=== PATIENT | male | born 1955 | race Caucasian/White ===

== ENCOUNTER 2022-11-27 14:05 | Observation (INO) | payer BC ==
--- OUTSIDE RECORDS SUMMARY | 2022-11-27 14:09 | XMS REPORT | Continuity of Care Document ---
:[address] [facility] [place], [place] t Address [address] [facility] [address] [place] [id number] Care Team Providers Name Role Phone Ricardo De La Cruz Attending Clinician Unavailable Provider, [facility] Attending Clinician Unavailable Yahaira Winston Attending Clinician YAHAIRA MÁRQUEZ Attending Clinician Unavailable Doctor Unassigned, [place] Attending Clinician Unavailable Payers Payer Name Policy Type Policy Number Effective Date Expiration Date S rennyce [employer] 6 [id number] Common Spir it Blue Shield [address] [id number] 2019 - OUT OF STATE 00 00:00:00 Problems Condition Condition Condition Status Onset Resolution Last Treating Co mments Source Name Details Category Date Date Treatment Clinician Date [id number] Family Problem Common history of Spirit prostate - [facility] cancer in [facility] [id number] PSA Problem Common elevation [facility] [id number] BPH loc w Problem Com mon urin Spirit obs/LUTS - [facility] [id number] Chronic Problem Common prostatiti Spirit [facility] [id number] Prostate Problem [place] [id number] nodule [facility] [id number] Thrombocyt Problem Co mmon openia [facility] No known No known Disease Unive rs active active ity of problems problems [facility] Allergies, Adverse Reactions, Alerts Allergy Allergy Status Severity Reaction(s) Onset Inactive Treating Comm ents Source Name Type Date Date Clinician PENICILL Drug Active Unknown-Cmnt 2019-09 Un fidel INS Class - ity of 00:00: [place] 00 [facility] Penicill Propensi Active Unknown - 2019-09 Uni vers ins ty to See comments 10-08 ity of adverse 00:00: [place] reaction 00 Medical s Branch penicill penicill Active Unknown Commo n in V in V [facility] NO KNOWN Drug Active Univers ALLERGIE Class ity of S [facility] sulfacet sulfacet Active anaphylaxis C ommon amide amide [facility] sulfamet sulfamet Active anaphylaxis C ommon hoxazole hoxazole Spirit / / - [facility] trimetho trimetho [facility] Social History Social Habit Start Date Stop Date Quantity Comments Source History of Tobacco Common Spirit - [facility] Use [facility] Sex Assigned At Common Sp krista - [facility] Exposure to Not sure [facility] SARS-CoV-2 (event) [facility] Tobacco use and 2020-08-08 2020-08-08 Never used [facility] exposure 00:00:00 00:00:00 [facility] Smoking Status Start Date Stop Date Source Unknown if ever smoked [facility] Never Smoker [facility] [place] Medications Ordered Filled Start Stop Current Ordering Indication Dosage Frequency Signature Comments Components Source Medication Medication Date Date Medication? Clinician (SIG) Name Name methylPREDN methylPREDN 2021-09 methylPRED ISolone 4 ISolone 4 11-02 NISolone 4 MG MG 00:00: 00:00 MG 00 :00 Flomax 0.4 Flomax 0.4 2021-09- No 1{capsu QD Flomax 0.4 MG MG 10-11 le} MG 00:00: 00:00 00 :00 Flomax 0.4 Flomax 0.4 2021-09- No 1{capsu QD Flomax 0.4 MG MG 10-11 le} MG 00:00: 00:00 00 :00 Flomax 0.4 Flomax 0.4 2021-09- No 1{capsu QD Flomax 0.4 MG MG 10-11 le} MG 00:00: 00:00 00 :00 Sulfamethox Sulfamethox 2021-09- No 1{table BID Sulfametho azole-Trime azole-Trime 10-11 12-22 t} xazole-Tri thoprim thoprim 00:00: 00:00 methoprim 800-160 MG 800-160 MG 00 :00 800-160 MG bromphenira 2019-09 Yes [id number] 5mL Take 5 mL Univers mine-pseudo 1-29 by mouth 4 it y of ephedrine-D 00:00: (four) Steven Jones (BROMFED 00 times Medical DM) 30-10 daily as Bran ch mg/5 mL needed for syrup Congestion /Allergies . zolpidem 10 2019-09 Yes TK 1 T PO U nivers mg tablet 10-01 HS ity of 00:00: [address] Branch Zolpidem Zolpidem No Zolpidem Tartrate Tartrate Tartrate Levothyroxi Levothyroxi No Levothyrox ne Sodium ne Sodium ine Sodium Zolpidem Zolpidem No Zolpidem Tartrate Tartrate Tartrate Levothyroxi Levothyroxi No Levothyrox ne Sodium ne Sodium ine Sodium Levothyroxi Levothyroxi No Levothyrox ne Sodium ne Sodium ine Sodium Zolpidem Zolpidem No Zolpidem Tartrate Tartrate Tartrate Vital Signs Vital Name Observation Time Observation Value Comments Source height 2022-09-28 09:30:00 74 [in_i] [facility] weight 2022-09-28 09:30:00 224 [lb_av] [facility] temperature 2022-09-28 09:30:00 98.2 [degF] [facility] bmi 2022-09-28 09:30:00 28.76 kg/m2 [facility] oximetry 2022-09-28 09:30:00 96 % [facility] respiratory rate 2022-09-28 09:30:00 16 /min Comm on [facility] blood pressure 2022-09-28 09:30:00 131 mm[Hg] Common [facility] blood pressure 2022-09-28 09:30:00 76 mm[Hg] Common [facility] - diastolic [facility] height 2022-08-10 08:30:00 74 [in_i] [facility] weight 2022-08-10 08:30:00 218 [lb_av] [facility] temperature 2022-08-10 08:30:00 98.4 [degF] Common [facility] bmi 2022-08-10 08:30:00 27.99 kg/m2 [facility] oximetry 2022-08-10 08:30:00 97 % [facility] respiratory rate 2022-08-10 08:30:00 18 /min Comm on [facility] blood pressure 2022-08-10 08:30:00 129 mm[Hg] Common [facility] - systolic [facility] blood pressure 2022-08-10 08:30:00 77 mm[Hg] Common [facility] - diastolic [facility] Systolic blood 2020-08-08 22:59:00 151 mm[Hg] Univer sity of pressure [facility] Diastolic blood 2020-08-08 22:59:00 85 mm[Hg] Unive rsity of pressure [facility] Heart rate 2020-08-08 22:58:00 112 /min [facility] Body temperature 2020-08-08 22:58:00 36.83 [facility] rate 2020-08-08 22:58:00 18 /min [facility] Body height 2020-08-08 22:58:00 188 cm Universi ty [facility] Body weight 2020-08-08 22:58:00 97[facility]523 [facility] 2020-08-08 22:58:00 27.60 kg/m2 [facility] Oxygen saturation in 2020-08-08 22:58:00 98 /min [facility] blood by [facility] Pulse oximetry Branch Procedures This patient has no known procedures. Encounters Start End Encounter Admission Attending Care Care Encounter Source Date/Time Date/Time Type Type Clinicians Facility Department ID 2022-08-24 Outpatient De La Cruz, Ricardo STHAYLEY STLMLC [id number] Common 09:41:04 [id number] [facility] 2022-08-10 Outpatient Ricardo De La Cruz STHAYLEY STLMLC [id number] - Common 08:15:06 [id number] [facility] 2022-09-28 2022-09-28 OFFICE STLMLC STLMLC [id number] Co mmon 00:00:00 00:00:00 VISIT EST Spir it PT LEVEL 3 - [facility] 2022-09-01 2022-09-01 (TEL) STLMLC STLMLC [id number] Co mmon 00:00:00 00:00:00 [facility] 2022-08-10 2022-08-10 OFFICE STLMLC STLMLC [id number] Co mmon 00:00:00 00:00:00 VISIT NEW Spir it PT LEVEL 4 - [facility] 2020-11-14 2020-11-14 Outpatient [facility] [id number] Univers 10:40:00 10:40:00 ity [facility] 2020-10-17 2020-10-17 Outpatient [facility] [id number] Univers 10:50:00 10:50:[facility] 2020-08-08 2020-08-08 Urgent Provider, [facility] [id number] Univers 16:49:50 17:48:57 [facility] [id number] ity of [place] [id number] Shawn as Professio [phone] [place] [address] Branch [address] 2020-08-08 2020-08-08 [facility] [id number] Univers 17:00:00 17:00:00 [facility] 2020-08-08 2020-08-08 Letter Doctor BATOOL [id number] Univers 00:00:00 00:00:00 (Out) Unassigned, BARRY [id number] ity of [place] [facility] [id number] Shawn as [phone] Medi solo 044 Branch Results This patient has no known results.
[2022-11-27] MEDS ORDERED: ASPIRIN 81 MG CHEWABLE TABLET ONE (14:52)
[2022-11-27] MEDS ORDERED: ENOXAPARIN 100 MG/ML SYR SQ ONE (14:52)
[2022-11-27 15:04] LABS: Protime INR 1.05
[2022-11-27 15:21] LABS: Albumin 3.3 g/dL (3.4-5.0); Bilirubin Direct 0.4 mg/dL (0-0.2); Magnesium 2.2 mg/dL (1.6-2.4); Potassium 4.1 mEq/L (3.5-5.1); Protein, Total 7.4 g/dL (6.4-8.2); Troponin High Sensitivity 10.8 pg/mL (<58.9)
[2022-11-27 15:36] LABS: SARS-COV-2 RT PCR NEGATIVE (NEGATIVE)
[2022-11-27 15:45] LABS: Absolute Lymphocytes (CBC) 0.9 K/uL (0.7-4.9); Hematocrit 40.8 % (39.6-49.0); Lymphocytes % 19.3 % (15.3-44.8); MCV 112.5 fL (80-100); MPV 7.7 fL (7.6-11.3); RBC Red Blood Cell Count 3.62 M/uL (4.33-5.43)
[2022-11-27 15:46] LABS: Platelet Estimate DECR; White Blood Cell Scan OK (OK)
[2022-11-27 15:47] LABS: Blood Morphology Comment NOTED (NOT SEEN); Macrocytosis 2+; Platelets, Giant PRESENT
--- NOTE | 2022-11-27 15:49 | RAD REPORT ---
EXAM DESCRIPTION: USExtrem Venous W Compress Bil11/27/2022 3:09 pm CLINICAL HISTORY: Leg pain COMPARISON: none FINDINGS: The common femoral, superficial femoral, greater saphenous, popliteal and posterior tibial veins bilaterally are compressible and demonstrate augmentation. Doppler demonstrates good flow. Grayscale, color and spectral analysis performed on all vessels IMPRESSION: No evidence of deep venous thrombosis involving either lower extremity.
--- NOTE | 2022-11-27 16:17 | ER ---
Nurse's Notes [facility] Name: Papito Christy Age: 67 yrs Sex: Male : 1955 Arrival Date: 11/27/2022 Time: 14:07 Bed 7 Private MD: Diagnosis: Chest pain, unspecified;Tachycardia, unspecified;Dyspnea;Edema, unspecified;Thrombocytopenia, unspecified;Unspecified cirrhosis of liver Presentation: 11/27 14:18 Chief complaint: Patient states: "I went to see the residential monitor because of some chest aa5 pains I get when I walk too far and he said to come straight here". Coronavirus screen: At this time, the client does not indicate any symptoms associated with coronavirus-19. Ebola Screen: Patient denies travel to an Ebola-affected area in the 21 days before illness onset. Initial Sepsis Screen: Does the patient meet any 2 criteria? HR > 90 bpm. Does the patient have a suspected source of infection? No. Patient's initial sepsis screen is negative. Risk Assessment: Do you want to hurt yourself or someone else? Patient reports no desire to harm self or others. Onset of symptoms was 2022. 14:18 Acuity: EUNICE 2 aa5 14:18 Method Of Arrival: Ambulatory aa5 Historical: - Allergies: 14:18 PENICILLINS; aa5 14:18 Z-pack; aa5 - Home Meds: 14:18 None [Active]; aa5 - PMHx: 14:18 None; aa5 - Immunization history:: Adult Immunizations unknown. - Social history:: Smoking status: Patient denies any tobacco usage or history of. - Family history:: not pertinent. Screenin:39 [facility] ED Fall Risk Assessment (Adult) History of falling in the last 3 months, mb9 including since admission No falls in past 3 months (0 pts) Confusion or Disorientation No (0 pts) Intoxicated or Sedated No (0 pts) Impaired Gait No (0 pts) Mobility Assist Device Used No (0 pt) Altered Elimination No (0 pt) Score/Fall Risk Level 0 - 2 = Low Risk Oriented to surroundings, Maintained a safe environment, Educated pt \\T\\ family on fall prevention, incl call for assistance when getting out of bed. Abuse screen: Denies threats or abuse. Nutritional screening: No deficits noted. Tuberculosis screening: No symptoms or risk factors identified. Assessment: 14:41 Reassessment: pt taken to ultrasound. mb9 15:38 General: Appears in no apparent distress. comfortable, Behavior is calm, cooperative, mb9 appropriate for age. Pain: Complains of pain in chest Pain does not radiate. Pain currently is 0 out of 10 on a pain scale. Quality of pain is described as pressure, Pain began 2-3 months ago Is episodic, Aggravated by exercise, increased activity. Neuro: Level of Consciousness is awake, alert, obeys commands, Oriented to person, place, time, situation, Appropriate for age. Cardiovascular: Reports shortness of breath, when exercising Heart tones S1 S2 present Rhythm is regular. Respiratory: Airway is patent Respiratory effort is even, unlabored, Respiratory pattern is regular, symmetrical, Breath sounds are clear bilaterally. GI: Abdomen is round non-distended, Bowel sounds present X 4 quads. Abd is soft and non tender X 4 quads. Derm: Skin is pink, warm \\T\\ dry. Musculoskeletal: Range of motion: intact in all extremities. 16:28 Reassessment: pt taken to CT via wheelchair. mb9 16:52 Reassessment: No changes from previously documented assessment. Patient and/or family mb9 updated on plan of care and expected duration. Pain level reassessed. Patient is alert, oriented x 3, equal unlabored respirations, skin warm/dry/pink. Vital Signs: 14:18 BP 128 / 78; Pulse 126; Resp 20 S; Temp 98(TE); Pulse Ox 98% on R/A; Weight 97.52 kg aa5 (R); Height 6 ft. 2 in. (R); 15:37 BP 133 / 72; Pulse 92; Resp 16; Pulse Ox 98% ; Pain 0/10; mb9 16:52 BP 140 / 67; Pulse 78; Resp 18; Pulse Ox 99% ; mb9 17:42 BP 130 / 73; Pulse 104; Resp 16; Pulse Ox 98% on R/A; mb9 14:18 Body Mass Index 27.60 (97.52 kg, 187.96 cm) aa5 15:37 Pain Scale: Adult mb9 ED Course: 14:07 Patient arrived in ED. rg4 14:18 Wilfred Barbosa MD is Attending Physician. kyara 14:18 Arm band placed on. aa5 14:19 Triage completed. aa5 14:27 EKG completed in triage. Results shown to MD. iw 14:40 Erum Wright, RN is Primary Nurse. mb9 14:46 Inserted saline lock: 20 gauge in left antecubital area, using aseptic technique. Blood zm collected. 14:47 TSH Sent. zm 14:47 COVID-19/FLU A+B Sent. zm 14:47 Lipase Sent. zm 14:47 Basic Metabolic Panel Sent. zm 14:47 CBC with Diff Sent. zm 14:47 LFT's Sent. zm 14:47 Magnesium Sent. zm 14:47 NT PRO-BNP Sent. zm 14:47 PT-INR Sent. zm 14:47 Troponin HS Sent. zm 14:55 Placed in gown. Bed in low position. Call light in reach. Side rails up X 1. Client mb9 placed on continuous cardiac and pulse oximetry monitoring. NIBP monitoring applied. monitoring manager on. 15:10 US Extremity Venous W Compression Luis Antonio In Process Unspecified. EDMS 15:39 No provider procedures requiring assistance completed. mb9 15:42 XRAY Chest (1 view) In Process Unspecified. EDMS 16:16 William West MD is Hospitalizing Provider. [facility] 16:40 CT Chest For PE Angio: ro pe In Process Unspecified. EDMS 19:19 Patient admitted, IV remains in place. mb9 Administered Medications: 15:13 Drug: Enoxaparin Sub-Q 1 mg/kg Route: Sub-Q; Site: right lower abdomen; mb9 16:47 Follow up: Response: No adverse reaction mb9 15:14 Drug: Aspirin PO Chewable Tablet 324 mg Route: PO; mb9 16:47 Follow up: Response: No adverse reaction mb9 17:49 Drug: Metoprolol PO 25 mg Route: PO; mb9 Medication: 15:39 VIS not applicable for this client. mb9 Outcome: 16:17 Decision to Hospitalize by Provider. [facility] 19:18 Admitted to [facility] via wheelchair, room 426, with chart, Report called to Keira isabel 19:18 Condition: stable 19:18 Instructed on the need for admit. 19:45 Patient left the ED. mb9 Signatures: Dispatcher [employer] EDMS Wilfred Barbosa MD MD cha Williams, Irene, RN RN Ivania Blackwell RN RN aa5 Adalgisa Chase4 Silvia Gutierrez Mary Beth, RN RN mb9 Corrections: (The following items were deleted from the chart) 14:20 14:18 Pulse 126bpm; Resp 20bpm; Spontaneous; Pulse Ox 98% RA; 97.52 kg Reported; Height aa5 6 ft. 2 in. Reported; BMI: 27.6; aa5 17:50 17:42 BP 130 / 73; Pulse 74bpm; Resp 16bpm; Pulse Ox 98% RA; mb9 mb9
--- NOTE | 2022-11-27 16:18 | EDPHYS ---
Physician Documentation [facility] Name: Papito Christy Age: 67 yrs Sex: Male : 1955 Arrival Date: 11/27/2022 Time: 14:07 Bed 7 Private MD: ED Physician Wilfred Barbosa HPI: 11/27 14:43 This 67 yrs old Male presents to ER via Ambulatory with complaints of kyara Palpitations. 14:43 The patient presents with a history of heart racing. Context: The symptoms occur at [facility] rest, with light activity. Onset: The symptoms/episode began/occurred 3 day(s) ago. Duration: The patient or guardian reports a single episode, that is still ongoing. Modifying factors: The symptoms are aggravated by light activity, strenuous activity, The symptoms are alleviated by remaining still, rest. Associated signs and symptoms: Pertinent positives: chest pain. Severity of symptoms: At their worst the symptoms were moderate in the emergency department the symptoms have improved Pain is currently a 0 / 10. The patient has not experienced similar symptoms in the past. Historical: - Allergies: 14:18 PENICILLINS; aa5 14:18 Z-pack; aa5 - Home Meds: 14:18 None [Active]; aa5 - PMHx: 14:18 None; aa5 - Immunization history:: Adult Immunizations unknown. - Social history:: Smoking status: Patient denies any tobacco usage or history of. - Family history:: not pertinent. ROS: 14:43 Constitutional: Negative for fever, chills, and weight loss, Eyes: Negative for injury, kyara pain, redness, and discharge, ENT: Negative for injury, pain, and discharge, Neck: Negative for injury, pain, and swelling, Abdomen/GI: Negative for abdominal pain, nausea, vomiting, diarrhea, and constipation, Back: Negative for injury and pain, : Negative for injury, bleeding, discharge, and swelling, MS/Extremity: Negative for injury and deformity, Skin: Negative for injury, rash, and discoloration, Neuro: Negative for headache, weakness, numbness, tingling, and seizure, Psych: Negative for depression, anxiety, suicide ideation, homicidal ideation, and hallucinations, Allergy/Immunology: Negative for hives, rash, and allergies, Endocrine: Negative for neck swelling, polydipsia, polyuria, polyphagia, and marked weight changes, Hematologic/Lymphatic: Negative for swollen nodes, abnormal bleeding, and unusual bruising. 14:43 Cardiovascular: Positive for chest pain, of the chest. 14:43 Respiratory: Positive for cough, with no reported sputum, dyspnea on exertion, shortness of breath, on exertion. Exam: 14:43 Constitutional: This is a well developed, well nourished patient who is awake, alert, kyara and in no acute distress. Head/Face: Normocephalic, atraumatic. Eyes: Pupils equal round and reactive to light, extra-ocular motions intact. Lids and lashes normal. Conjunctiva and sclera are non-icteric and not injected. Cornea within normal limits. Periorbital areas with no swelling, redness, or edema. ENT: Nares patent. No nasal discharge, no septal abnormalities noted. Tympanic membranes are normal and external auditory canals are clear. Oropharynx with no redness, swelling, or masses, exudates, or evidence of obstruction, uvula midline. Mucous membranes moist. Neck: Trachea midline, no thyromegaly or masses palpated, and no cervical lymphadenopathy. Supple, full range of motion without nuchal rigidity, or vertebral point tenderness. No Meningismus. Chest/axilla: Normal chest wall appearance and motion. Nontender with no deformity. No lesions are appreciated. Cardiovascular: Regular rate and rhythm with a normal S1 and S2. No gallops, murmurs, or rubs. Normal PMI, no JVD. No pulse deficits. Abdomen/GI: Soft, non-tender, with normal bowel sounds. No distension or tympany. No guarding or rebound. No evidence of tenderness throughout. Back: No spinal tenderness. No costovertebral tenderness. Full range of motion. Male : Normal genitalia with no discharge or lesions. Skin: Warm, dry with normal turgor. Normal color with no rashes, no lesions, and no evidence of cellulitis. Neuro: Awake and alert, GCS 15, oriented to person, place, time, and situation. Cranial nerves II-XII grossly intact. Motor strength 5/5 in all extremities. Sensory grossly intact. Cerebellar exam normal. Normal gait. Psych: Awake, alert, with orientation to person, place and time. Behavior, mood, and affect are within normal limits. 14:43 ECG was reviewed by the Attending Physician. 14:43 Respiratory: the patient does not display signs of respiratory distress, Respirations: normal, no acute changes, Breath sounds: bronchial sounds, that are mild, are scattered, decreased breath sounds, that are mild, are located in both bases, rhonchi, that are mild, stridor, is not appreciated. Vital Signs: 14:18 BP 128 / 78; Pulse 126; Resp 20 S; Temp 98(TE); Pulse Ox 98% on R/A; Weight 97.52 kg aa5 (R); Height 6 ft. 2 in. (R); 15:37 BP 133 / 72; Pulse 92; Resp 16; Pulse Ox 98% ; Pain 0/10; mb9 16:52 BP 140 / 67; Pulse 78; Resp 18; Pulse Ox 99% ; mb9 17:42 BP 130 / 73; Pulse 104; Resp 16; Pulse Ox 98% on R/A; mb9 14:18 Body Mass Index 27.60 (97.52 kg, 187.96 cm) aa5 15:37 Pain Scale: Adult mb9 MDM: 14:18 Patient medically screened. kyara 14:53 SALIMA Risk Score: 1 - Patient's age is greater or equal to 65, 1 - 3 or more CAD risk kyara factors, 1 - Recent [<24 hrs] Severe Angina. Differential diagnosis: arrythmia, dehydration. Data reviewed: vital signs, nurses notes, lab test result(s), EKG, radiologic studies, doppler, plain films. Consideration of Admission/Observation Patient was admitted/placed on observation. I considered the following discharge prescriptions or medication management in the emergency department Medications were administered in the Emergency Department. See MAR. Test considered but Not performed: MRI: mri chest. 11/27 14:19 Order name: Basic Metabolic Panel; Complete Time: 15:50 kyara 11/27 14:19 Order name: CBC with Diff; Complete Time: 15:50 kyara 11/27 14:19 Order name: LFT's; Complete Time: 15:50 kyara 11/27 14:19 Order name: Magnesium; Complete Time: 15:50 kyara 11/27 14:19 Order name: NT PRO-BNP; Complete Time: 15:50 kyara 11/27 14:19 Order name: PT-INR; Complete Time: 15:10 11/27 14:19 Order name: Troponin HS; Complete Time: 15:50 kyara 11/27 14:19 Order name: Lipase; Complete Time: 15:50 kyara 11/27 14:19 Order name: COVID-19/FLU A+B; Complete Time: 15:50 kyara 11/27 14:20 Order name: TSH; Complete Time: 15:50 kyara 11/27 15:24 Order name: T4 Free; Complete Time: 15:50 EDMS 11/27 15:47 Order name: CBC Smear Scan; Complete Time: 15:50 EDMS 11/27 18:10 Order name: CBC with Automated Diff EDMS 11/27 18:10 Order name: CBC with Automated Diff EDMS 11/27 18:10 Order name: Comprehensive Metabolic Panel EDMS 11/27 18:10 Order name: Comprehensive Metabolic Panel EDMS 11/27 18:10 Order name: Protime (+INR) EDMS 11/27 18:10 Order name: Protime (+INR) EDMS 11/27 18:10 Order name: PTT, Activated Partial Thromb EDMS 11/27 18:10 Order name: PTT, Activated Partial Thromb EDMS 11/27 18:10 Order name: Slides for Pathologist Review EDMS 11/27 18:10 Order name: Slides for Pathologist Review EDMS 11/27 18:10 Order name: Troponin High Sensitivity EDMS 11/27 18:10 Order name: Troponin High Sensitivity EDMS 11/27 18:10 Order name: Troponin High Sensitivity EDMS 11/27 18:11 Order name: Haptoglobin EDMS 11/27 18:11 Order name: Haptoglobin EDMS 11/27 18:11 Order name: Lactic Dehydrogenase EDMS 11/27 18:11 Order name: Lactic Dehydrogenase EDMS 11/27 14:19 Order name: XRAY Chest (1 view); Complete Time: 17:37 kyara 11/27 14:19 Order name: US Extremity Venous W Compression Luis Antonio; Complete Time: 16:09 kyara 11/27 14:19 Order name: CT Chest For PE Angio: ro pe; Complete Time: 17:37 kyara 11/27 14:19 Order name: EKG; Complete Time: 14:20 kyara 11/27 18:10 Order name: CONS Physician Consult EDMS 11/27 18:10 Order name: Heart Healthy EDMS 11/27 14:19 Order name: Cardiac monitoring; Complete Time: 14:42 kyara 11/27 14:19 Order name: EKG - Nurse/Tech; Complete Time: 14:28 [facility] 11/27 14:19 Order name: IV Saline Lock; Complete Time: 14:44 [facility] 11/27 14:19 Order name: Labs collected and sent; Complete Time: 14:44 [facility] 11/27 14:19 Order name: O2 Per Protocol; Complete Time: 14:42 [facility] 11/27 14:19 Order name: O2 Sat Monitoring; Complete Time: 14:42 [facility] 11/27 15:12 Order name: Labs - recollect needed: recollect lavender / electromyographic technician wants to verify eb results; Complete Time: 15:37 EC:43 Rate is 99 beats/min. Rhythm is regular. QRS [place] is Normal. NM interval is normal. QRS kyara interval is normal. QT interval is normal. T waves are Normal. No ST changes noted. Clinical impression: LVH. Interpreted by me. Reviewed by me. Administered Medications: 15:13 Drug: Enoxaparin Sub-Q 1 mg/kg Route: Sub-Q; Site: right lower abdomen; mb9 16:47 Follow up: Response: No adverse reaction mb9 15:14 Drug: Aspirin PO Chewable Tablet 324 mg Route: PO; mb9 16:47 Follow up: Response: No adverse reaction mb9 17:49 Drug: Metoprolol PO 25 mg Route: PO; mb9 Disposition Summary: 11/27/22 16:17 Hospitalization Ordered Hospitalization Status: Inpatient Admission kyara Provider: William West cha Location: Telemetry/MedSurg (Inpatient) kyara Condition: Fair kyara Problem: new kyara Symptoms: have worsened kyara Bed/Room Type: Standard kyara Room Assignment: 426(11/27/22 18:32) eb Diagnosis - Chest pain, unspecified kyara - Tachycardia, unspecified kyara - Dyspnea kyara - Edema, unspecified kyara - Thrombocytopenia, unspecified kyara - Unspecified cirrhosis of liver kyara Forms: - Medication Reconciliation Form kyara - SBAR form kyara Signatures: Dispatcher [employer] EDMS Wilfred Barbosa MD MD cha Calderon, Audri RN RN [id number] Coby Cervantes Mary Beth RN RN mb9 Corrections: (The following items were deleted from the chart) 16:50 16:26 SARS-COV-2 Antigen Rapid+I.LAB.BRZ ordered. EDMS EDMS 18:32 16:17 kyara eb
--- NOTE | 2022-11-27 17:01 | RAD REPORT ---
EXAM DESCRIPTION: CT - Chest For Pe Angio - 11/27/2022 4:38 pm CLINICAL HISTORY: Chest pain COMPARISON: None. TECHNIQUE: Dynamically enhanced axial 3 mm thick images of the chest were obtained during administra tion of 100 mL Isovue 370 IV contrast. Coronal and oblique reconstruction images were generated and r eviewed. Exam utilizes a protocol for optimal evaluation of pulmonary arterial tree. Maximum intensity projections 3D imaging was utilized All CT scans are performed using dose optimization technique as appropriate and may include automated exposure control or mA/KV adjustment according to patient size. FINDINGS: A pulmonary embolus is not seen. A thoracic aortic aneurysm is not noted. A pleural effusion is not seen. A pericardial effusion is not seen. A lung consolidation is not present. Cirrhotic liver IMPRESSION: Negative for a pulmonary embolism.
--- NOTE | 2022-11-27 17:02 | RAD REPORT ---
EXAM DESCRIPTION: Analisa Single View11/27/2022 3:40 pm CLINICAL HISTORY: Chest pain COMPARISON: none FINDINGS: The lungs appear clear of acute infiltrate. The heart is normal size IMPRESSION: No acute abnormalities displayed
[2022-11-27] MEDS ORDERED: METOPROLOL TAR 25 MG TAB ONE (17:49)
[2022-11-27] MEDS ORDERED: MORPHINE 2 MG/ML SYR IV PRN (18:02)
[2022-11-27] MEDS ORDERED: ONDANSETRON 4 MG/2 ML VIAL IV PRN (18:02)
[2022-11-27] MEDS ORDERED: ACETAMINOPHEN 500 MG TAB PO PRN (18:02)
[2022-11-27] MEDS ORDERED: NA CHLORIDE 0.9% 1,000 ML ONE (18:37)
[2022-11-27] MEDS: NA CHLORIDE 0.9% 1,000 ML IV SCH ×2 (18:38→21:49)
[2022-11-27 18:39] VITALS: BMI 27.4
[2022-11-27 22:44] VITALS: O2SAT 98
[2022-11-28 04:42] LABS: Absolute Lymphocytes (CBC) 1.1 K/uL (0.7-4.9); Lymphocytes % 27.8 % (15.3-44.8); MCV 112.3 fL (80-100); MPV 8.2 fL (7.6-11.3); RBC Red Blood Cell Count 3.65 M/uL (4.33-5.43)
[2022-11-28 04:45] LABS: Protime INR 1.08
[2022-11-28 05:06] LABS: Albumin 3.1 g/dL (3.4-5.0); Bilirubin Total 1.1 mg/dL (0.2-1.0); Potassium 4.1 mEq/L (3.5-5.1); Protein, Total 6.6 g/dL (6.4-8.2)
[2022-11-28 05:35] LABS: Blood Morphology Comment NOTED (NOT SEEN); Macrocytosis 1+; Platelet Estimate DECR
[2022-11-28] MEDS ORDERED: PNEUMOCOCCAL VACCINE 0.5 ML IMVAC ONE (09:00)
--- NOTE | 2022-11-28 13:01 | EKG ---
Test Date: 2022-11-27 Test Time: 14:25:22 Pediatric Allergist: MAR MEASUREMENT RESULTS: Intervals: Rate: 99 AR: 194 QRSD: 102 QT: 356 QTc: 456 [place]: P: 67 AR: 194 QRS: -30 T: 61 INTERPRETIVE STATEMENTS: Sinus rhythm with occasional premature ventricular complexes Possible Left atrial enlargement Left axis deviation Left ventricular hypertrophy Abnormal ECG No previous ECG available for comparison Electronically Signed On 11-28-22 12:58:24 CDT by Dl Tong
[2022-11-28 16:08] VITALS: BP 120/58; TEMP 98.3
--- NOTE | 2022-11-28 17:06 | P.HP ---
Certification for Inpatient Patient admitted to: Observation With expected LOS: <2 Midnights Patient will require the following post-hospital care: None Practitioner: I am a practitioner with admitting privileges, knowledge of patient current condition, hospital course, and medical plan of care. Services: Services provided to patient in accordance with Admission requirements found in Title 42 Section 412.3 of the Code of Federal Regulations Patient History Date of Service: 11/27/22 Reason for admission: Chest pain rule out acute coronary syndrome History of Present Illness: Patient is a 67-year-old gentleman came to the hospital with chest discomfort. Patient had been out of town on medication and noticed that he was really short of breath. He was fatigued and not able to keep up with his . He was brought into the hospital because he just was not feeling well. In the emergency room his work-up has been unremarkable. EKG and troponins are negative. He has numerous risk factors and he will be admitted to the hospital for further evaluation. Allergies Penicillins Allergy (Verified 11/27/22 18:30) Anaphylaxis Home Medications: Zolpidem Tartrate 10 mg PO 30 MIN BEFORE HS 11/27/22 - Past Medical/Surgical History Has patient received pneumonia vaccine in the past: No Diabetic: No Past Medical History: Patient denies medical history Past Surgical History: Patient denies surgical history - Family History Father Family History: Reviewed- Non-Contributory - Social History Smoking Status: Never smoker Alcohol use: No CD- Drugs: No Caffeine use: Yes Place of Residence: Home Review of Systems 10-point ROS is otherwise unremarkable Physical Examination - Vital Signs Temperature: 98.3 F Blood Pressure: 120/58 Pulse: 78 Respirations: 18 Pulse Ox (%): 100 - Physical Exam General: Alert, In no apparent distress, Oriented x3 HEENT: Atraumatic, PERRLA, Mucous membr. moist/pink, EOMI, Sclerae nonicteric Neck: Supple, 2+ carotid pulse no bruit, No LAD, Without JVD or thyroid abnormality Respiratory: Clear to auscultation bilaterally, Normal air movement Cardiovascular: Regular rate/rhythm, Normal S1 S2, No murmurs Gastrointestinal: Normal bowel sounds, Soft and benign, Non-distended, No tenderness, No rebound, No guarding Musculoskeletal: No clubbing, No swelling, No tenderness Integumentary: No rashes Neurological: Normal gait, Normal speech, Normal strength at 5/5 x4 extr, Normal tone, Sensation intact, Cranial nerves 3-12 intact, Normal affect Lymphatics: No axilla or inguinal lymphadenopathy Assessment & Plan - Problems (Diagnosis) (1) Chest pain, rule out acute myocardial infarction Current Visit: Yes Status: Acute - Plan -High-sensitivity troponin -Cardiology consultation -Continue diagnostic studies per cardiology recommendation -Repeat EKG -Work-up for other etiologies of cardiac chest pain if troponins remain negative -Lipid profile -Airset Caster regarding modifying risk for cardiac disease Discharge Plan: Home Plan to discharge in: Greater than 2 days - Advance Directives Does patient have a Living Will: No Does patient have a Durable POA for Healthcare: No - Code Status/Comfort Care Code Status Assessed: Yes Code Status: Full Code Critical Care: No Time Spent Managing PTS Care (In Minutes): 35
--- NOTE | 2022-11-28 17:09 | P.DS ---
Discharge Date: 11/28/22 Disposition: ROUTINE DISCHARGE Discharge Condition: GOOD Reason for Admission: Chest pain rule out acute coronary syndrome - Problems (1) Chest pain, rule out acute myocardial infarction Current Visit: Yes Status: Acute Brief History of Present Illness: Patient is a 67-year-old gentleman came to the hospital with chest discomfort. Patient had been out of town on medication and noticed that he was really short of breath. He was fatigued and not able to keep up with his . He was brought into the hospital because he just was not feeling well. In the emergency room his work-up has been unremarkable. EKG and troponins are negative. He has numerous risk factors and he will be admitted to the hospital for further evaluation. Hospital Course: Patient is doing well. Clinically patient is stable for discharge. Patient denies any complaints. Patient been seen by cardiology and plan is to do outpatient work-up. Vital Signs/Physical Exam: Temp Pulse Resp BP Pulse Ox 98.3 F 78 18 120/58 L 100 11/28/22 17:06 11/28/22 17:06 11/28/22 17:06 11/28/22 17:06 11/28/22 17:06 General: Alert, In no apparent distress, Oriented x3 Laboratory Data at Discharge: WBC 4.00 thou/uL (4.3-10.9) L 11/28/22 03:57 Hgb 13.9 g/dL (13.6-17.9) 11/28/22 03:57 Hct 41.0 % (39.6-49.0) 11/28/22 03:57 Plt Count 33 thou/uL (152-406) L 11/28/22 03:57 PT 11.9 SECONDS (9.5-12.5) 11/28/22 03:57 INR 1.08 11/28/22 03:57 APTT 28.0 SECONDS (24.3-36.9) 11/28/22 03:57 Sodium 138 mEq/L (136-145) 11/28/22 03:57 Potassium 4.1 mEq/L (3.5-5.1) 11/28/22 03:57 BUN 14 mg/dL (7-18) 11/28/22 03:57 Creatinine 0.99 mg/dL (0.70-1.30) 11/28/22 03:57 Glucose 107 mg/dL (74-106) H 11/28/22 03:57 Magnesium 2.2 mg/dL (1.6-2.4) 11/27/22 14:41 Total Bilirubin 1.1 mg/dL (0.2-1.0) H 11/28/22 03:57 AST 46 U/L (15-37) H 11/28/22 03:57 ALT 45 U/L (16-61) 11/28/22 03:57 Alkaline Phosphatase 64 U/L (45-117) 11/28/22 03:57 Lipase 22 U/L (13-75) 11/27/22 14:41 Home Medications: Zolpidem Tartrate 10 mg PO 30 MIN BEFORE HS 11/27/22 Physician Discharge Instructions: -DC IV and DC home -Follow-up with PCP in 1 to 2 weeks -Follow-up with Cardiology in 1 to 2 weeks -Please call Dr. West at [phone] if any questions regarding hospital stay -Please call nursing station at [phone] if any nursing or medication questions -Return to the emergency room if symptoms worsen Diet: AHA Activity: Fall precautions Followup: Ricardo De La Cruz MD [Primary Care Provider] - Time spent managing pt's care (in minutes): 35
--- NOTE | 2022-11-28 18:08 | CON ---
Date of Consultation: 11/28/2022 Reason For Consultation: Chest pain. History Of Present Illness: 67-year-old male comes in to the hospital with chest pain, pressure-like along with fatigue. Pain radiates to his left shoulder. He was tachycardiac, admitted to the [facility]. Cardiac enzymes have been negative and he is feeling much better today. Past Medical History: None. Medications: None. Allergies: PENICILLIN. Family History: No premature coronary artery disease or cancer. Social History: He does not smoke or drink. Does not use any drugs. Review of Systems: All systems reviewed and they were negative except as mentioned in the HPI. Physical Examination: Vital Signs: Reviewed. Head and Neck: Pupils are equal, reactive to light. Intact eye movements. No JVD. No cervical lym phadenopathy. Neck is supple. Thyroid is not enlarged. Lungs: Clear to auscultation bilaterally. No rhonchi, wheezing, or crackles. No accessory muscle u se. Heart: Regular rate and rhythm. No extra sounds. Abdomen: Soft, nontender. Bowel sounds positive. No organomegaly. No masses or hernia. No rigidi ty or rebound. Extremities: No edema, clubbing, or cyanosis. Intact pulses. Skin: No rash. Neurologic: Alert, awake, oriented x3. No acute focal deficits were appreciated. Lymph Nodes: No cervical or axillary lymphadenopathy. Investigations: Cardiac troponins are negative. BUN 14, creatinine 0.99, and hemoglobin is 13.9. Assessment And Recommendations: 1.Chest pain. CT of the lungs was negative. Cardiac enzymes are negative. Patient can be released . Follow up as an outpatient. We will obtain exercise nuclear stress test and an echocardiogram. 2.Aortic valve stenosis. He has aortic systolic ejection murmur on exam. Obtain an echo, which jose manuel l be done as an outpatient. Patient can be released and will arrange for the outpatient testing as o utlined above. SR/MODL Voice ID: [id number] Report ID: [id number]
== END 2022-11-28 18:13 | disposition home or self-care (01) ==
LOC: ER 14:05 → ERHOLD 18:02 → 4TH 19:20
PROVIDERS: ADMIT Hospitalist; ATTEND Hospitalist
DX: R07.9 Chest pain, unspecified (principal); I35.0 Nonrheumatic aortic (valve) stenosis; R53.83 Other fatigue; R00.0 Tachycardia, unspecified; Z88.0 Allergy status to penicillin; Z20.822 Contact with and (suspected) exposure to COVID-19
CPT/HCPCS: 93005; 85025 ×2; 80048; 36415; 83735; 83615; 85610 ×2; 80076; 85730; 84443; 84484 ×3; 84439; 83690; 83010; 80053; 83880; 0240U; 71275; 71045; 93970; 96372; 99285; Q9967; J1650; J7030 ×2; G0378; J2270; J2405

== ENCOUNTER 2023-01-04 10:28 | Day surgery (SDC) | payer BC ==
[2023-01-03 10:49] LABS: Absolute Lymphocytes (CBC) 1.4 K/uL (0.7-4.9); Hematocrit 40.4 % (39.6-49.0); Lymphocytes % 34.2 % (15.3-44.8); MCV 111.3 fL (80-100); MPV 8.3 fL (7.6-11.3); RBC Red Blood Cell Count 3.63 M/uL (4.33-5.43)
[2023-01-03 11:00] LABS: Potassium 3.8 mEq/L (3.5-5.1)
[2023-01-04] MEDS ORDERED: NA CHLORIDE 0.9% 500 ML ONE (10:34)
[2023-01-04] MEDS ORDERED: HEPA 1000U/500MLS 2,000 UNIT/1,000 ML BAG IV ONE (10:58)
[2023-01-04] MEDS ORDERED: FENTANYL CITR 100 MCG/2 ML ONE (10:58)
[2023-01-04] MEDS ORDERED: LIDOCAINE 1% 20 ML MDV ONE (10:58)
[2023-01-04] MEDS ORDERED: HEPARIN 10,000 UNIT/10 ML VIAL IV ONE (10:59)
[2023-01-04] MEDS ORDERED: HEPARIN 5000 UNIT/ML 1 ML VIAL ONE (10:59)
[2023-01-04] MEDS ORDERED: NITROGLYCERIN 100 MCG/ML SYR (for cath lab use only) IV ONE (10:59)
[2023-01-04] MEDS ORDERED: MIDAZOLAM HCL 2 MG/2 ML INJ ONE (10:59)
[2023-01-04] MEDS ORDERED: VERAPAMIL HCL 10 MG/4 ML VIAL IV ONE (10:59)
[2023-01-04] MEDS ORDERED: ATROPINE SULF 1 MG/10 ML SYR IV ONE (10:59)
[2023-01-04] MEDS ORDERED: NA CHLORIDE 0.9% 0 ML ONE (12:28)
--- NOTE | 2023-01-04 13:52 | OP ---
Date of Procedure: 01/04/2023 Surgeon: MORALES BARAKAT Procedures Performed: 1.Selective coronary angiogram. 2.Left heart catheterization. 3.Right heart catheterization. Indication: 1.Aortic valve stenosis. 2.Unstable angina. Access: 1.Right radial artery 6-Ivorian closed with TR band. 2.Right femoral vein 7-Ivorian closed with manual pressure. Complications: None. Bleeding: Less than 20 mL. Anesthesia: Total sedation time was 45 minutes. Description Of Procedure: After risks, benefits, alternatives were explained, the patient agreed to procedure and signed informed consent. The patient was brought into the cardiac catheterization [facility], prepped and draped in the usual sterile fashion. Then, I accessed right radial artery using pediatric micropuncture kit, placed a 6-Ivorian Slender sheath, and took 5-Ivorian [place] 4.0 catheter i nto the aortic root over a J-wire, engaged left main and took standard views and engaged the right co ronary artery, took standard views and then exchanged for AL1 catheter with a straight wire across th e aortic valve and then measured the LVEDP and pullback recorded a gradient of 34 mmHg. Then, I took the catheter out. Sheath was removed and placed TR band with good hemostasis. Then to evaluate the severity of the aortic valve stenosis and to calculate the valve area, I decided to perform a right heart catheterization. A consent was obtained from his . Then, I accessed right femoral vein us ing micropuncture kit and placed a 7-Ivorian [place] sheath. I took a 7-Ivorian balloon-tipped [place] c atheter into the right atrium, right ventricle, PA, and obtained waveform and pressure, and then perf ormed thermodilution cardiac output measurements and then I removed the [place] and the sheath. Manual pressure was used for closure with good hemostasis. Findings: Coronary angiogram; 1.Left main is normal. 2.LAD is normal. Normal diagonal branches. 3.Left circumflex; large and dominant and normal. 4.RCA; small, nondominant, and normal. 5.LVEDP is borderline at 60 mmHg. 6.Mean gradient across the aortic valve is 34 mmHg. Right heart catheterization numbers: RA is 6/7 with mean of 4. RV is 34/7, mean of 12. PA is 27/13 , mean of 20. Pulmonary wedge pressure was 14 mmHg and the cardiac output was 8 L/minute. Conclusion: 1.Normal coronary arteries. 2.Ayosqnyn-jv-fzziei aortic valve stenosis with a mean gradient of 34 mmHg, cardiac output of 8 L/mi nute. 3.Slightly elevated LVEDP. Recommendation: Medical management and repeat echo in 6 months to evaluate the aortic valve stenosis . SR/MODL Voice ID: [id number] Report ID: [id number]
[2023-01-04 14:21] VITALS: O2SAT 97
[2023-01-04 14:57] VITALS: BP 118/57
== END 2023-01-04 14:59 | disposition home or self-care (01) ==
LOC: CCL 10:28
PROVIDERS: ATTEND Internal Medicine
DX: I35.0 Nonrheumatic aortic (valve) stenosis (principal); I20.0 Unstable angina; I49.3 Ventricular premature depolarization; R01.1 Cardiac murmur, unspecified; Z88.0 Allergy status to penicillin
CPT/HCPCS: 85025; 80048; 36415; 85610; 85730; 93460; C1893; Q9966; J1644; J2001; J2250; J3010; J7040; J0461

== ENCOUNTER 2024-04-29 07:14 | Day surgery (SDC) | payer BC ==
[2024-04-29] MEDS ORDERED: NA CHLORIDE 0.9% 500 ML ONE (07:37)
[2024-04-29 09:26] VITALS: BP 138/67; TEMP 98.1; O2SAT 100; BMI 27.6
[2024-04-29 10:32] LABS: MPV 8.3 fL (7.6-11.3); Platelets 49 thou/uL (152-406)
== END 2024-04-29 10:13 | disposition home or self-care (01) ==
LOC: DS 07:14
PROVIDERS: ATTEND Internal Medicine
DX: C61 Malignant neoplasm of prostate (principal); E03.8 Other specified hypothyroidism; Z95.4 Presence of other heart-valve replacement
CPT/HCPCS: 36415; 86900; 86850; 85049; 86901; 36430; P9035; J7040; P9100

== ENCOUNTER 2024-04-29 10:53 | Day surgery (SDC) | payer BC ==
[2024-04-23 12:55] LABS: Absolute Eosinophils 0.1 K/uL (0-0.5); Absolute Lymphocytes (CBC) 1.1 K/uL (0.7-4.9); Absolute Monocytes 0.5 K/uL (0.1-1.3); Absolute Neutrophil 3.1 K/uL (1.8-8.0); Basophils % 0.6 % (0-1.3); Eosinophils % 1.5 % (0-4.4); Hematocrit 37.6 % (39.6-49.0); Hemoglobin 12.5 g/dL (13.6-17.9); Lymphocytes % 22.7 % (15.3-44.8); MCH 38.2 pg (27.0-35.0); MCHC 33.3 g/dL (32.0-36.0); MCV 114.8 fL (80-100); Neutrophils % 65.2 % (41.7-73.7); Nucleated Red Blood Cells % 0.1 % (0-0); Platelets 28 thou/uL (152-406); RBC Red Blood Cell Count 3.28 M/uL (4.33-5.43); Red Cell Distribution Width 14.2 % (12.1-15.2)
[2024-04-23 12:56] LABS: PT Prothrombin Time 10.8 SECONDS (9.4-12.5); Protime INR 0.96
[2024-04-23 13:06] LABS: Anion Gap 9.1 mEq/L (5.0-15.0); Potassium 4.1 mEq/L (3.5-5.1)
[2024-04-23 13:26] LABS: Anisocytosis SLIGHT; Blood Morphology Comment NOTED (NOT SEEN); Macrocytosis 1+; Platelet Estimate DECR; White Blood Cell Scan OK (OK)
--- NOTE | 2024-04-23 13:29 | RAD REPORT ---
EXAM DESCRIPTION: Analisa Pa And Lat (2 Views)04/23/2024 12:53 pm CLINICAL HISTORY: Preop for Spacer gel and fiducial seed implantation COMPARISON: None FINDINGS: The lungs appear clear of acute infiltrate. The heart is normal size Postsurgical changes involve the chest IMPRESSION: No acute abnormalities displayed
[2024-04-29] MEDS: Ringers Lactate 1,000 ML IV ONE (11:00)
[2024-04-29] MEDS ORDERED: propofoL 200 MG/20 ML VIAL IV ONE (11:34)
[2024-04-29] MEDS ORDERED: FENTANYL CITR 100 MCG/2 ML ONE (11:34)
[2024-04-29] MEDS ORDERED: ONDANSETRON 4 MG/2 ML VIAL ONE (11:34)
[2024-04-29] MEDS ORDERED: EPHEDRINE SULF 50 MG/ML VIAL ONE (11:58)
[2024-04-29] MEDS ORDERED: dexAMETHasone 10 MG/ML VIAL ONE (12:01)
[2024-04-29] MEDS: CEFAZOLIN SODIUM 2 GM/VIAL ONE (12:12)
[2024-04-29 13:58] VITALS: BP 132/63; TEMP 97.6; O2SAT 96
--- NOTE | 2024-04-29 14:33 | OP ---
Surgeon: KRISTOPHER WINTER Preoperative Diagnoses: 1.High-risk prostate cancer. 2.Possible metastatic prostate cancer. 3.Androgen deprivation therapy active use. Postoperative Diagnoses: 1.High-risk prostate cancer. 2.Possible metastatic prostate cancer. 3.Androgen deprivation therapy active use. Principal Procedures: 1.Transrectal ultrasound-guided placement of 2 fiducial markers. 2.Transrectal ultrasound-guided SpaceOAR gel insertion. Indication For Procedure: Mr. Christy presented to the [facility] with elevated PSA and underwent evaluation and biopsy revealing high-risk prostate cancer. Subsequent followup evaluation and imagin g did reveal the suspicion for possible metastatic disease and so he was started on androgen deprivat ion therapy and including advanced androgen deprivation therapy with Zytiga plus prednisone. He elec wanda to proceed with definitive treatment via radiation therapy, and SpaceOAR gel insertion was reques wanda along with fiducial markers for radiation therapy targeting and prevention of rectal toxicity. Procedure In Detail: The patient was consented in the preoperative holding area before being transfe rred to the operative suite where general anesthesia was induced. He was given Ancef 2 g IV antimicr obial prophylaxis, and pneumo boots were provided for DVT prophylaxis. He was placed in the lithotom y position, padded and secured to the table appropriately. His genitalia were elevated out of the pe rineal region using an Ioban drape, and the perineum was prepped with Betadine, after the transrectal ultrasound probe had been placed via his anus into his rectum. The prostate was visualized in its e ntirety from the apex and perineal region all the way through the seminal vesicles and the bladder ne ck. It was visualized in both the axial as well as the sagittal dimensions. I began the procedure u sing a fiducial marker targeting the patient's left smith-prostate and advanced the needle under ultra sound guidance via the perineum into the prostate targeting the mid gland laterally. Once successful ly placed, I then targeted the patient's right lateral aspect of the mid gland and placed a second fi ducial marker there. I then turned the ultrasound probe back to the midline and used the SpaceOAR in sertion needle along with a syringe of saline which had been primed to remove any air, and I advanced the needle via the perineum under direct vision into the prerectal fat plane beneath Denonvilliers' space until I reached the mid base portion of the prostate. This was done in sagittal dimension of v isualization, and then I switched to axial visualization to ensure the needle was situated in the mid line of the prostate. At this point, I aspirated to ensure no blood or succus before injecting a puf f of saline which did seem to distribute mostly in the midline, but to the patient's right. As a res ult, I angled the needle slightly more to the patient's left and injected another puff of saline whic h did distribute more evenly across the base of the prostate. At this point, I removed the saline sy ringe and attached the SpaceOAR injection needle, which I then injected the SpaceOAR components into the prerectal fat plane, which did create a nice space between the rectum and the peripheral zone of the prostate bilaterally. I then removed the needle under direct vision and we surveyed the space cr eated in both axial and transverse dimensions, and it was adequate. As a result, the ultrasound prob e was removed, the patient was taken out of the lithotomy position. He was then transferred to [facility] after being awakened from general anesthesia, and then transferred to the recovery room in goo d condition. Complications: None. Discharge Disposition: He can begin simulation for radiation therapy within the next few weeks. Sub sequent followup should be established with me in approximately 6-9 months, or 3-6 months after compl etion of his radiation therapy. Should he have particular ongoing issues of a urologic nature that the radiation oncologist is unable to adequately manage, sooner followup may be established. JANET/AURE Voice ID: [id number] Report ID: [id number]
--- NOTE | 2024-04-29 18:07 | EKG ---
Test Date: 2024-04-23 Test Time: 12:30:41 Costumed Character: MEASUREMENT RESULTS: Intervals: Rate: 83 ME: 212 QRSD: 100 QT: 392 QTc: [address]: P: 60 ME: 212 QRS: -17 T: 52 INTERPRETIVE STATEMENTS: Sinus rhythm with 1st degree AV block Minimal voltage criteria for LVH, may be normal variant Possible Anterior infarct, age undetermined Abnormal ECG Compared to ECG 11/27/2022 14:25:22 First degree AV block now present Myocardial infarct finding now present Ventricular premature complex(es) no longer present Left-axis deviation no longer present Electronically Signed On 04-29-24 17:54:07 CDT by Yohannes Choi
== END 2024-04-29 13:55 | disposition home or self-care (01) ==
LOC: OR 10:53
PROVIDERS: ATTEND Urology
PROC: 0VH43YZ Insertion of Other Device into Prostate and Seminal Vesicles, Percutaneous Approach (ICD-10-PCS; principal; 2024-04-29 11:30)
DX: C61 Malignant neoplasm of prostate (principal); E03.9 Hypothyroidism, unspecified; D69.6 Thrombocytopenia, unspecified; N40.1 Benign prostatic hyperplasia with lower urinary tract symptoms; R00.0 Tachycardia, unspecified; Z80.42 Family history of malignant neoplasm of prostate
CPT/HCPCS: 93005; 87088; 85025; 87086; 80048; 36415; 85610; 71046; 55874; J2704; J3010; J1100; J2405; J7120

== ENCOUNTER 2024-10-09 09:34 | Emergency (ER) | payer BC ==
--- OUTSIDE RECORDS SUMMARY | 2024-10-09 09:38 | XMS REPORT | Continuity of Care Document ---
Author Name Unknown Address [address] [facility] [address]. [address] [place] [address] [facility] thconnect Address [address] [facility] [place]. [address] [place] [address] Care Team Providers Care Orthotic Technician Name Role Phone SAÚL DAMON Primary Care Physician Unav ailSaúl Ghosh Attending Clinician Unavailable Laquita Whitfield MD Attending Clinician [phone] Unknown, Attending Attending Clinician Unavailab LAQUITA Myles Attending Clinician Unavailable Chidi Garcia Attending Clinician UnavailTessa Starr Attending Clinician Unavailable Fred QUINTANA, Sunil Torrez Attending Clinician UnavailJamal Sena Attending Clinician [phone] Unknown, Attending Attending Clinician Unavailab JAMAL Alarcon Attending Clinician Unavailable Doctor Unassigned, Weiner Attending Clinician U Dl Bañuelos Attending Clinician Unavailable Provider, [facility] Attending Clinician Un available Yahaira Winston Attending Clinician [phone] YAHAIRA MÁRQUEZ Attending Clinician Unavailable Chidi Garcia Admitting Clinician UnavailTessa Starr Admitting Clinician Unavailable Physician, No Primary or Family Admitting Clinic ansley Unavailable Payers Payer Name Policy Type Policy Number Effective Date Expirati on Date Source [facility] 6 [id number] 0 [facility] Problems Condition Name Condition Details Condition Category Status Onset Date Resolution Date Last Treatment Date Treating Clinician Comments Source [id number] Family history of prostate cancer in father Problem [facility] [id number] Elevated PSA Problem [facility] [id number] Secondary malignant neoplasm of other specified sites Problem [facility] [id number] Secondary malignant neoplasm of bone Problem [facility] [id number] Benign prostatic hyperplasi a with lower urinary tract symptoms Problem [facility] [id number] Chronic prostatiti s Problem [facility] Hypothyroi dism Other specified hypothyroi dism Problem [facility] Heart valve replacemen t Presence of other heart-valv e replacemen t Problem [facility] Malignant tumor of prostate Malignant neoplasm of prostate Problem [facility] [id number] Sinus tachycardi a Problem [facility] Lower urinary tract symptoms due to benign prostatic hypertroph y Benign localized prostatic hyperplasi a with lower urinary tract symptoms (LUTS) Problem [facility] [id number] Other obstructiv e and reflux uropathy Problem [facility] [id number] Prostate nodule Problem [facility] Thrombocyt openia Thrombocyt openia Problem [facility] [id number] Primary malignant neoplasm of prostate with high risk of recurrence due to stage T3a and PSA greater than 20 Problem [facility] No known active problems No known active problems Disease [facility] Allergies, Adverse Reactions, Alerts Allergy Name Allergy Type Status Severity Reaction(s) Onset Date Inactive Date Treating Clinician Comments Source Penicill ins DA Active SV SINCE CHILDHOOD 11-18 00:00: 00 [facility] Penicill ins DA Active SV SINCE CHILDHOOD 3-04 00:00: 00 [facility] PENICILL INS Drug Class Active Unknown-Cmnt 2019-09 00:00: 00 [facility] Penicill ins Propensi ty to adverse reaction s Active Unknown - See comments 2019-09 00:00: 00 [facility] Penicill ins Propensi ty to adverse reaction s Active Unknown - See comments 2019-09 00:00: 00 [facility] NO KNOWN ALLERGIE S Drug Class Active [facility] sulfamet hoxazole / trimetho prim sulfamet hoxazole / trimetho prim Active anaphylaxis [facility] sulfacet amide sulfacet amide Active anaphylaxis [facility] [id number] Drug allergy Active Unknown [facility] Social History Social Habit Start Date Stop Date Quantity Comments Source History of Tobacco Use [facility] Sex Assigned At [facility] Exposure to SARS-CoV-2 (event) Not sure [facility] Sexual orientation [facility] History of Social function 2024-09-21 00:00:00 2024-09-21 00:00:00 [facility] Tobacco use and exposure 2020-08-08 00:00:00 2020-08-08 00:00:00 Smokeless tobacco non-user [facility] Smoking Status Start Date Stop Date Source Unknown if ever smoked [facility] Never smoked tobacco [facility] Medications Ordered Medication Name Filled Medication Name Start Date Stop Date Current Medication? Ordering Clinician Indication Dosage Frequency Signature (SIG) Comments Components Source azelastine 137 mcg (0.1 %) nasal spray 09-21 00:00: 00 Yes [id number] 1{spray } Use 1 [place] in each nostril in the morning and 1 [place] in the evening. Use in each nostril as directed [facility] fluticasone propionate 50 mcg/actuati on nasal spray 09-21 00:00: 00 Yes [id number] 1{spray } Use 1 [place] in each nostril in the morning. [facility] benzonatate 100 mg capsule 09-21 00:00: 00 Yes [id number] 200mg Take 2 capsules by mouth every 8 (eight) hours as needed for Cough. [facility] guaiFENesin 400 mg tablet 09-21 00:00: 00 Yes [id number] 400mg Take 1 tablet by mouth every 4 (four) hours as needed for Cough. [facility] doxycycline hyclate 100 mg tablet 09-21 00:00: 00 10-02 05:59 :00 Yes [id number] 100mg Take 1 tablet by mouth in the morning and 1 tablet in the evening. Do all this for 10 days. [facility] abiraterone 250 mg tablet 09-17 00:00: 00 Yes [facility] metoprolol succinate XL 25 mg 24 hr tablet 2023-09 00:00: 00 Yes 25mg Take 1 tablet by mouth in the morning. [facility] predniSONE 5 mg tablet 2023-09 00:00: 00 Yes TAKE 1 TABLET BY MOUTH TWICE DAILY WITH FOOD DIRECTED. DO NOT TAKE AT BEDTIME. [facility] predniSONE 10 mg tablet 2023-09 00:00: 00 Yes TAKE 9 TABLET BY MOUTH EVERY DAY [facility] Eligard Eligard 7-03 00:00: 00 No 22.5mg [facility] Bicalutamid e 50 MG Bicalutamid e 50 MG 6-06 00:00: 00 No 1{table t} QD Bicalutami de 50 MG Gentamicin 80mg Gentamicin 80mg 3-28 00:00: 00 No 240mg [facility] nirmatrelvi r-ritonavir (PAXLOVID) 300 mg (150 mg x 2)-100 mg tablet 1 00:00: 00 09-21 00:00 :00 No [id number] 3{tbl} Take 3 tablets by mouth in the morning and 3 tablets in the evening. [facility] foLIC acid 1 mg tablet 09-14 00:00: 00 Yes 1mg Take 1 tablet by mouth in the morning. [facility] levothyroxi ne 100 mcg tablet 09-14 00:00: 00 Yes 100ug Take 1 tablet by mouth every morning. [facility] bromphenira mine-pseudo ephedrine-D M (BROMFED DM) 2-30-10 mg/5 mL syrup 2019-09 00:00: 00 09-21 00:00 :00 No [id number] 5mL Take 5 mL by mouth 4 (four) times daily as needed for Congestion /Allergies . [facility] zolpidem 10 mg tablet 2019-09 00:00: 00 Yes TK 1 T PO HS [facility] Levothyroxi ne Sodium Levothyroxi ne Sodium No Levothyrox ine Sodium Tamsulosin HCl 0.4 MG Tamsulosin HCl 0.4 MG No 1{capsu le} BID Tamsulosin HCl 0.4 MG Immunizations Ordered Immunization Name Filled Immunization Name Date Status Comments Source SARS-COV-2 COVID-19 MODERNA 12+ YRS VACCINE 2020-11-14 00:00:00 Completed [facility] SARS-COV-2 COVID-19 MODERNA 12+ YRS VACCINE 2020-10-17 00:00:00 Completed [facility] SARS-COV-2 COVID-19 MODERNA 12+ YRS VACCINE Unknown Completed [facility] SARS-COV-2 COVID-19 MODERNA 12+ YRS VACCINE Unknown Completed [facility] SARS-COV-2 COVID-19 MODERNA 12+ YRS VACCINE Unknown Completed [facility] Vital Signs Vital Name Observation Time Observation Value Comments S rennyce Body weight 2024-09-21 18:36:00 103.165 kg [facility] BMI 2024-09-21 18:36:00 29.20 kg/m2 [facility] Oxygen saturation in Arterial blood by Pulse oximetry 2024-09-21 18:36:00 96 /min [facility] Systolic blood pressure 2024-09-21 18:36:00 149 mm[Hg] [facility] Diastolic blood pressure 2024-09-21 18:36:00 78 mm[Hg] [facility] Heart rate 2024-09-21 18:36:00 118 /min [facility] Body temperature 2024-09-21 18:36:00 36.83 Stephie [facility] Respiratory rate 2024-09-21 18:36:00 17 /min [facility] Body height 2024-09-21 18:36:00 188 cm [facility] height 2024-04-10 15:00:00 74 [in_i] Commo n [facility] weight 2024-04-10 15:00:00 218 [lb_av] Comm on [facility] temperature 2024-04-10 15:00:00 98 [degF] Comm on [facility] bmi 2024-04-10 15:00:00 27.99 kg/m2 Comm on [facility] oximetry 2024-04-10 15:00:00 99 % Commo n [facility] respiratory rate 2024-04-10 15:00:00 18 /min [facility] blood pressure systolic 2024-04-10 15:00:00 134 mm[Hg] [facility] blood pressure diastolic 2024-04-10 15:00:00 70 mm[Hg] [facility] blood pressure diastolic 2024-03-12 13:15:00 69 mm[Hg] [facility] height 2024-03-12 13:15:00 74 [in_i] Commo n [facility] weight 2024-03-12 13:15:00 218 [lb_av] Comm on [facility] temperature 2024-03-12 13:15:00 97.7 [degF] Com mon [facility] bmi 2024-03-12 13:15:00 27.99 kg/m2 Comm on [facility] oximetry 2024-03-12 13:15:00 99 % Commo n [facility] respiratory rate 2024-03-12 13:15:00 18 /min Common [facility] blood pressure systolic 2024-03-12 13:15:00 117 mm[Hg] Common [facility] height 2024-02-14 08:15:00 74 [in_i] Commo n [facility] weight 2024-02-14 08:15:00 215.0 [lb_av] Co mmon [facility] temperature 2024-02-14 08:15:00 98.7 [degF] Com mon [facility] bmi 2024-02-14 08:15:00 27.6 kg/m2 Commo n [facility] oximetry 2024-02-14 08:15:00 96 % Commo n [facility] respiratory rate 2024-02-14 08:15:00 18 /min [facility] blood pressure systolic 2024-02-14 08:15:00 117 mm[Hg] [facility] blood pressure diastolic 2024-02-14 08:15:00 64 mm[Hg] [facility] height 2023-12-13 16:15:00 74 [in_i] Commo n [facility] weight 2023-12-13 16:15:00 215 [lb_av] Comm on [facility] temperature 2023-12-13 16:15:00 97.7 [degF] Com mon [facility] bmi 2023-12-13 16:15:00 27.6 kg/m2 Commo n [facility] oximetry 2023-12-13 16:15:00 99 % Commo n [facility] respiratory rate 2023-12-13 16:15:00 18 /min Common [facility] blood pressure systolic 2023-12-13 16:15:00 140 mm[Hg] Common [facility] blood pressure diastolic 2023-12-13 16:15:00 67 mm[Hg] Common Spiri [facility] height 2023-12-06 09:15:00 74 [in_i] Commo n [facility] weight 2023-12-06 09:15:00 215 [lb_av] Comm on [facility] temperature 2023-12-06 09:15:00 98.3 [degF] Com mon [facility] bmi 2023-12-06 09:15:00 27.6 kg/m2 Commo n [facility] oximetry 2023-12-06 09:15:00 99 % Commo n [facility] respiratory rate 2023-12-06 09:15:00 18 /min Common [facility] blood pressure systolic 2023-12-06 09:15:00 132 mm[Hg] Common [facility] blood pressure diastolic 2023-12-06 09:15:00 68 mm[Hg] Common [facility] height 2023-11-09 10:00:00 74 [in_i] Commo n [facility] weight 2023-11-09 10:00:00 224.8 [lb_av] Co mmon [facility] temperature 2023-11-09 10:00:00 98.6 [degF] Com mon [facility] bmi 2023-11-09 10:00:00 28.86 kg/m2 Comm on [facility] oximetry 2023-11-09 10:00:00 96 % Commo n [facility] respiratory rate 2023-11-09 10:00:00 18 /min Common [facility] blood pressure systolic 2023-11-09 10:00:00 123 mm[Hg] [facility] blood pressure diastolic 2023-11-09 10:00:00 58 mm[Hg] [facility] Systolic blood pressure 2023-10-06 22:22:00 107 mm[Hg] [facility] Diastolic blood pressure 2023-10-06 22:22:00 64 mm[Hg] [facility] Heart rate 2023-10-06 22:22:00 111 /min [facility] Body temperature 2023-10-06 22:22:00 36.89 Stephie [facility] Respiratory rate 2023-10-06 22:22:00 17 /min [facility] Body height 2023-10-06 22:22:00 188 cm [facility] Body weight 2023-10-06 22:22:00 102.513 kg [facility] BMI 2023-10-06 22:22:00 29.02 kg/m2 [facility] Oxygen saturation in Arterial blood by Pulse oximetry 2023-10-06 22:22:00 95 /min [facility] height 2022-09-28 09:30:00 74 [in_i] Commo n [facility] weight 2022-09-28 09:30:00 224 [lb_av] Comm on [facility] temperature 2022-09-28 09:30:00 98.2 [degF] Com mon [facility] bmi 2022-09-28 09:30:00 28.76 kg/m2 Comm on [facility] oximetry 2022-09-28 09:30:00 96 % Commo n [facility] respiratory rate 2022-09-28 09:30:00 16 /min [facility] blood pressure systolic 2022-09-28 09:30:00 131 mm[Hg] [facility] blood pressure diastolic 2022-09-28 09:30:00 76 mm[Hg] Common [facility] height 2022-08-10 08:30:00 74 [in_i] Commo n [facility] weight 2022-08-10 08:30:00 218 [lb_av] Comm on [facility] temperature 2022-08-10 08:30:00 98.4 [degF] Com mon [facility] bmi 2022-08-10 08:30:00 27.99 kg/m2 Comm on [facility] oximetry 2022-08-10 08:30:00 97 % Commo n [facility] respiratory rate 2022-08-10 08:30:00 18 /min Common [facility] blood pressure systolic 2022-08-10 08:30:00 129 mm[Hg] [facility] blood pressure diastolic 2022-08-10 08:30:00 77 mm[Hg] [facility] Systolic blood pressure 2020-08-08 22:59:00 151 mm[Hg] [facility] Diastolic blood pressure 2020-08-08 22:59:00 85 mm[Hg] [facility] Heart rate 2020-08-08 22:58:00 112 /min [facility] Body temperature 2020-08-08 22:58:00 36.83 Stephie [facility] Respiratory rate 2020-08-08 22:58:00 18 /min [facility] Body height 2020-08-08 22:58:00 188 cm [facility] Body weight 2020-08-08 22:58:00 97.523 kg [facility] BMI 2020-08-08 22:58:00 27.60 kg/m2 [facility] Oxygen saturation in Arterial blood by Pulse oximetry 2020-08-08 22:58:00 98 /min [facility] Procedures Procedure Date / Time Performed Performing Clinicia n Source POCT MOLECULAR FLU 2024-09-21 18:43:00 Unknown, Attend ing [facility] POCT MOLECULAR STREP 2024-09-21 18:40:00 Unknown, Atte nding [facility] POCT SARS-COV-2 ANTIGEN (BINAX NOW) 2024-09-21 18:37:00 Laquita Whitfield [facility] PVR 2024-04-10 00:00:00 Common S pirit [facility] [id number] 2023-11-21 00:00:00 RASSA [facility] [id number] 2023-11-21 00:00:00 CHAAB.01 [facility] [id number] 2023-11-21 00:00:00 CHAAB.01 [facility] [id number] 2023-11-21 00:00:00 CHAAB.01 [facility] [id number] 2023-11-21 00:00:00 CHAAB.01 [facility] POCT SARS-COV-2 ANTIGEN (BINAX NOW) 2023-10-06 22:24:00 Jamal Gary [facility] ASSIGNMENT OF BENEFITS 2023-10-06 22:14:36 Docto r Unassigned, Weiner [facility] Encounters Start Date/Time End Date/Time Encounter Type Admission Type Attending Clinicians Care Facility Care Department Encounter ID Source 2023-11-01 09:10[id number] 2022-08-24 09:41:04 Outpatient Saúl Damon [facility] [id number] [facility] 2022-08-10 08:15:06 Outpatient Saúl Damon [facility] [id number] [facility] 2024-09-21 12:40:00 2024-09-21 13:00:00 Urgent Care Laquita Whitfield Unknown, [facility] [id number] [id number] [facility] 2024-09-21 12:40:00 2024-09-21 12:40:00 Outpatient R LAQUITA WHITFIELD [facility] [id number] [facility] 2024-06-04 00:00:00 2024-06-04 00:00:00 (TEL) [facility] [id number] [facility] 2024-04-10 00:00:00 2024-04-10 00:00:00 OFFICE VISIT ESTAB PT LEVEL 4 [facility] [id number] [facility] 2024-03-12 00:00:00 2024-03-12 00:00:00 OFFICE VISIT ESTAB PT LEVEL 5 [facility] [id number] [facility] 2024-02-14 00:00:00 2024-02-14 00:00:00 OFFICE VISIT ESTAB PT LEVEL 5 [facility] STLMLC [id number] [facility] 2023-12-13 00:00:00 2023-12-13 00:00:00 (TEL) STLMLC STLMLC [id number] [facility] 2023-12-13 00:00:00 2023-12-13 00:00:00 OFFICE VISIT ESTAB PT LEVEL 5 [facility] STLMLC [id number] [facility] 2023-12-06 00:00:00 2023-12-06 00:00:00 (PROC) Procedure STLMLC STLMLC [id number] [facility] 2023-11-21 10:14:00 2023-11-22 14:47:00 Inpatient Chidi Thomson [facility] INTE [id number] 70 [facility] 2023-11-19 00:00:00 2023-11-19 00:00:00 (TEL) STLMLC STLMLC [id number] [facility] 2023-11-14 10:54:00 2023-11-16 13:22:00 Inpatient BISHOP LaresTessa [facility] INTE.02 [id number] 16 [facility] 2023-11-09 00:00:00 2023-11-09 00:00:00 OFFICE VISIT ESTAB PT LEVEL 4 STLMLC STLMLC [id number] [facility] 2023-10-16 00:00:00 2023-10-16 00:00:[address] Sunil Ibarra [facility] [id number] [id number] [id number] [id number] [facility] 2023-10-06 16:20:00 2023-10-06 16:40:00 Urgent Care Jamal Gary Unknown, Attending [facility] [id number] [id number] [id number] [id number] [facility] 2023-10-06 16:20:00 2023-10-06 16:20:00 Outpatient R JAMAL GARY [facility] [id number] [facility] 2023-10-06 00:00:00 2023-10-06 00:00:00 Orders Only Doctor Unassigned, Weiner [facility] [id number] [id number] 4.2.7.2.686 [id number] [facility] 2023-09-12 09:17:00 2023-09-12 09:17:00 Outpatient Dl Meraz [facility] [id number] 31 [facility] 2023-07-25 08:09:00 2023-07-25 08:09:00 Outpatient Dl Meraz [facility] [id number] 32 [facility] 2022-09-28 00:00:00 2022-09-28 00:00:00 OFFICE VISIT EST PT LEVEL 3 [facility]C STLMLC [id number] [facility] 2022-09-01 00:00:00 2022-09-01 00:00:00 (TEL) STL[facility]C [facility] [id number] [facility] 2022-08-10 00:00:00 2022-08-10 00:00:00 OFFICE VISIT NEW PT LEVEL 4 [facility]LMLC STLMLC [id number] [facility] 2020-11-14 10:40:00 2020-11-14 10:40:00 Outpatient [facility] [id number] [facility] 2020-10-17 10:50:00 2020-10-17 10:50:00 Outpatient [facility] [id number] [facility] 2020-08-08 16:49:50 2020-08-08 17:48:57 Urgent Care Provider, [facility] Willi [facility] 1..840.114 [id number] [id number] [id number] [facility] 2020-08-08 17:00:00 2020-08-08 17:00:00 Outpatient R WILLI YAHAIRA [facility] [id number] [facility] 2020-08-08 00:00:00 2020-08-08 00:00:00 Letter (Out) Doctor Unassigned, Weiner [facility] 1..840.114 [id number] [id number] [id number] [facility] Results Test Description Test Time Test Comments Results Result Co mments Source [facility] SARS-COV-2 ANTIGEN (BINAX NOW)2024-09-21 18:52:00* Test Item Value Reference Range Interpretation Comme [facility] POCT SARS-COV-2 ANTIGEN (test code = 03555-1) Not Detected Not Detected, See Comment On board controls acceptable with C Line (test code = 3574) Yes Lab Interpretation (test code = 31545-5) Normal [facility] MOLECULAR [id number] 18:48:10* Test Item Value Reference Range Interpretation Comme [facility] POCT Molecular Strep (test c ode = 34716-0) Negative Negative Lab Interpretation (test cod e = 37228-3) [id number]:00* Test Item Value Reference Range Interpretation Comme nts CHOL/HDLC RATIO (test code = 9830-1) 3.1 (calc) See_Comment N [Automated messa ge] The system which generated this result transmitted reference range: <5.0 (calc). The reference range was not used to interpret this result as normal/abnormal. CHOLESTEROL, TOTAL (test code = 2093-3) 210 mg/dL See_Comment H [Automated message] The system which generated this result transmitted reference range: <200 mg/dL. The reference range was not used to interpret this result as normal/abnormal. HDL CHOLESTEROL (test code = 2085-9) 67 mg/dL See_Comment N [Automated [employer]] The system which generated this result transmitted reference range: > OR = 40 mg/dL. The reference range was not used to interpret this result as normal/abnormal. LDL-CHOLESTEROL (test code = 67016-2) 126 mg/dL (calc) H NON HDL CHOLESTEROL (test code = 47557-7) 143 mg/dL (calc) See_Comment H [Automated message] The system which generated this result transmitted reference range: <130 mg/dL (calc). The reference range was not used to interpret this result as normal/abnormal. TRIGLYCERIDES (test code = 2571-8) 78 mg/dL See_Comment N [Automated [employer]] The system which generated this result transmitted reference range: <150 mg/dL. The reference range was not used to interpret this result as normal/abnormal. BASIC METABOLIC [id number] 06:01:00* Test Item Value Reference Range Interpretation Comme nts SODIUM (test code = NA) 136 mEq/L 134-147 N POTASSIUM (test code = K) 4.0 mEq/L 3.4-5.0 N CHLORIDE (test code = CL) 106 mEq/L 100-108 N CARBON DIOXIDE (test code = CO2) 25 mEq/l 21-33 N ANION GAP (test code = GAP) 9 0-20 N GLUCOSE (test code = GLU) 104 mg/dL 77-141 N BLOOD UREA NITROGEN (test code = BUN) 13 mg/dL 7-25 N GLOMERULAR FILTRATION RATE (test code = GFR) 92.5 80-90 H The Glomerular Filtration Rate is a calculated parameterbased on serum Creatinine, patient age and sex. GFR valuesless than 60 mL/min/1.73 square meters are indicative ofChronic Kidney Disease. Values less than 15 mL/min/1.73square meters indicate Kidney failure. The calculation forGFR is based on the CKD-EPI (2020) calculation. This formulais race indifferent and is the recommended formula for GFRby the National Kidney Foundation for Adults.The GFR will not calculate if the sex is unknown or if thepatient's age is <18 years. CREATININE (test code = CREAT) 0.9 mg/dL 0.6-1.3 N CALCIUM (test code = CA) 8.3 mg/dL 8.0-10.5 N CBC W/AUTO [id number] 05:40:00* Test Item Value Reference Range Interpretation Comme nts WHITE BLOOD CELL (test code = WBC) 4.2 x10 3/uL 4.5-11.0 L RED BLOOD CELL (test code = RBC) 2.90 x10 6/uL 4.00-5.60 L HEMOGLOBIN (test code = HGB) 10.9 g/dL 12.5-16.9 L HEMATOCRIT (test code = HCT) 32.3 % 37.5-50.7 L MEAN CELL VOLUME (test code = MCV) 111.4 fL 81.0-99.0 H MEAN CELL HGB (test code = MCH) 37.6 pg 27.0-33.0 H MEAN CELL HGB CONCETRATION (test code = MCHC) 33.7 g/dL 33.0-37.0 N RED CELL DISTRIBUTION WIDTH CV (test code = RDW) 13.3 % 11.5-14.5 N RED CELL DISTRIBUTION WIDTH SD (test code = RDW-SD) 54.3 fL 37.0-54.0 H PLATELET COUNT (test code = PLT) 39 x10 3/uL 150-400 L IMMATURE PLATELET FRACTION (test code = IPF) 2.2 % 0.9-11.2 N MEAN PLATELET VOLUME (test c ode = MPV) 9.8 fL 7.0-9.0 H NEUTROPHIL % (test code = NT%) 62.4 % 56.0-77.0 N IMMATURE GRANULOCYTE % (test code = IG%) 0.2 % 0.0-2.0 N LYMPHOCYTE % (test code = LY%) 20.5 % 14.0-32.0 N MONOCYTE % (test code = MO%) 15.3 % 4.8-9.0 H EOSINOPHIL % (test code = EO%) 1.4 % 0.3-3.7 N BASOPHIL % (test code = BA%) 0.2 % 0.0-2.0 N NUCLEATED RBC % (test code = NRBC%) 0.0 % 0-0 N NEUTROPHIL # (test code = NT#) 2.64 x10 3/uL 2.0-7.6 N IMMATURE GRANULOCYTE # (test code = IG#) 0.01 x10 3/uL 0.00-0.03 N LYMPHOCYTE # (test code = LY#) 0.87 x10 3/uL 1.0-3.8 L MONOCYTE # (test code = MO#) 0.65 x10 3/uL 0.1-0.8 N EOSINOPHIL # (test code = EO#) 0.06 x10 3/uL 0.0-0.2 N BASOPHIL # (test code = BA#) 0.01 x10 3/uL 0.0-0.2 N NUCLEATED RBC # (test code = NRBC#) 0.00 x10 3/uL 0.0-0.1 N COAGULATION TIME [id number] 10:08:00* Test Item Value Reference Range Interpretation Comme nts COAGULATION TIME ACTIVATED (test code = ACT) 307 SECONDS Performed by certified charging crane operator at [facility] COAGULATION TIME [id number] 09:49:00* Test Item Value Reference Range Interpretation Comme nts COAGULATION TIME ACTIVATED (test code = ACT) 347 SECONDS Performed by certified charging crane operator at [facility] CBC W/AUTO [id number] 07:23:00* Test Item Value Reference Range Interpretation Comme nts WHITE BLOOD CELL (test code = WBC) 3.6 x10 3/uL 4.5-11.0 L RED BLOOD CELL (test code = RBC) 3.49 x10 6/uL 4.00-5.60 L HEMOGLOBIN (test code = HGB) 13.3 g/dL 12.5-16.9 N HEMATOCRIT (test code = HCT) 39.3 % 37.5-50.7 N MEAN CELL VOLUME (test code = MCV) 112.6 fL 81.0-99.0 H MEAN CELL HGB (test code = MCH) 38.1 pg 27.0-33.0 H MEAN CELL HGB CONCETRATION (test code = MCHC) 33.8 g/dL 33.0-37.0 N RED CELL DISTRIBUTION WIDTH CV (test code = RDW) 13.4 % 11.5-14.5 N RED CELL DISTRIBUTION WIDTH SD (test code = RDW-SD) 56.5 fL 37.0-54.0 H PLATELET COUNT (test code = PLT) 34 x10 3/uL 150-400 L IMMATURE PLATELET FRACTION (test code = IPF) 4.6 % 0.9-11.2 N MEAN PLATELET VOLUME (test c ode = MPV) 12.1 fL 7.0-9.0 H NEUTROPHIL % (test code = NT%) 42.1 % 56.0-77.0 L IMMATURE GRANULOCYTE % (test code = IG%) 0.3 % 0.0-2.0 N LYMPHOCYTE % (test code = LY%) 38.3 % 14.0-32.0 H MONOCYTE % (test code = MO%) 14.0 % 4.8-9.0 H EOSINOPHIL % (test code = EO%) 4.7 % 0.3-3.7 H BASOPHIL % (test code = BA%) 0.6 % 0.0-2.0 N NUCLEATED RBC % (test code = NRBC%) 0.0 % 0-0 N NEUTROPHIL # (test code = NT#) 1.53 x10 3/uL 2.0-7.6 L IMMATURE GRANULOCYTE # (test code = IG#) 0.01 x10 3/uL 0.00-0.03 N LYMPHOCYTE # (test code = LY#) 1.39 x10 3/uL 1.0-3.8 N MONOCYTE # (test code = MO#) 0.51 x10 3/uL 0.1-0.8 N EOSINOPHIL # (test code = EO#) 0.17 x10 3/uL 0.0-0.2 N BASOPHIL # (test code = BA#) 0.02 x10 3/uL 0.0-0.2 N NUCLEATED RBC # (test code = NRBC#) 0.00 x10 3/uL 0.0-0.1 N RBC [id number] 07:23:00* Test Item Value Reference Range Interpretation Comme nts ANISOCYTOSIS (test code = ANISO) 1+ POLYCHROMASIA (test code = POLC) 1+ MACROCYTOSIS (test code = MACR) 3+ PLT [id number] 07:23:00* Test Item Value Reference Range Interpretation Comme nts PLATELET ESTIMATE (test code = PLTEST) 28-35 THOUSAND ADEQUATE PLATELET MORPHOLOGY (test code = PLTMORPH) LARGE PLATELETS B-TYPE NATRIURETIC [id number] 06:35:00* Test Item Value Reference Range Interpretation Comme nts B-TYPE NATRIURETIC PEPTIDE ( test code = BNP) 394.0 PG/ML 0-100 H BASIC METABOLIC [id number] 06:34:00* Test Item Value Reference Range Interpretation Comme nts SODIUM (test code = NA) 138 mEq/L 134-147 N POTASSIUM (test code = K) 3.6 mEq/L 3.4-5.0 N CHLORIDE (test code = CL) 103 mEq/L 100-108 N CARBON DIOXIDE (test code = CO2) 28 mEq/l 21-33 N ANION GAP (test code = GAP) 11 0-20 N GLUCOSE (test code = GLU) 106 mg/dL 77-141 N BLOOD UREA NITROGEN (test code = BUN) 13 mg/dL 7-25 N GLOMERULAR FILTRATION RATE (test code = GFR) 92.5 80-90 H The Glomerular Filtration Rate is a calculated parameterbased on serum Creatinine, patient age and sex. GFR valuesless than 60 mL/min/1.73 square meters are indicative ofChronic Kidney Disease. Values less than 15 mL/min/1.73square meters indicate Kidney failure. The calculation forGFR is based on the CKD-EPI (2020) calculation. This formulais race indifferent and is the recommended formula for GFRby the National Kidney Foundation for Adults.The GFR will not calculate if the sex is unknown or if thepatient's age is <18 years. CREATININE (test code = CREAT) 0.9 mg/dL 0.6-1.3 N CALCIUM (test code = CA) 8.9 mg/dL 8.0-10.5 N [id number] 06:34:00* Test Item Value Reference Range Interpretation Comme nts ALBUMIN (test code = ALB) 3.30 g/dL 3.4-5.0 L COVID 19 Asymptomatic IH [id number] 06:27:00* Test Item Value Reference Range Interpretation Comme nts COVID 19 Asymptomatic IH AG (test code = COVNONPUIAG) Negative Negative A negative resul t is presumptive and should be confirmedwith an FDA authorized molecular assay, if necessary forpatient management.A positive result does not rule out co-infections withother pathogens.This test detects both viable (live) and non-viable,SARS-CoV, and SARS-CoV-2. Test performance depends on theamount of virus (antigen) in the sample.This test has not been FDA cleared or approved; the test hasbeen authorized by FDA under an Emergency Use Authorization(EUA) for use by laboratories certified under the CLIA thatmeet the requirements to perform moderate, high or waivedcomplexity tests. PROTHROMBIN [id number] 06:11:00* Test Item Value Reference Range Interpretation Comme nts PROTHROMBIN TIME PATIENT (test code = PTP) 11.9 SECONDS 9.3-12.9 N INTERNATIONAL NORMAL RATIO (test code = INR) 1.1 0.8-1.2 N TARGET INR BY INDICATION Indication INR1. Prophylaxis of venous thrombosis 2.0 - 3.0 (orthopedic surgery), Prophylaxis of venous thrombosis (other than high-risk surgery), Treatment of Deep Vein Thrombosis/Pulmonary Embolism, Prevention of systemic embolism - Tissue heart valves, Acute Myocardial Infarction (to prevent systemic embolism), Valvular heart disease, Atrial Fibrillation, Bileaflet mechanical valve in aortic position.2. Mechanical prosthetic valves (high risk), 2.5 - 3.5 Presence of Lupus Anticoagulant or Antiphospholipid Antibodies, Prevention of systemic embolism - Acute Myocardial Infarction (to prevent recurrent infarct). [id number] 16:09:00* Test Item Value Reference Range Interpretation Comme nts COPPER (test code = MENS LOCKER ROOM ATTENDANT) 105 ug/dL 69-132 Detection Limit = 5Performed At: [facility] [place], [place] [id number] Marguerite Valentine MD Ph:[phone] BASIC METABOLIC [id number] 04:07:00* Test Item Value Reference Range Interpretation Comme nts SODIUM (test code = NA) 138 mEq/L 134-147 N POTASSIUM (test code = K) 3.8 mEq/L 3.4-5.0 N CHLORIDE (test code = CL) 103 mEq/L 100-108 N CARBON DIOXIDE (test code = CO2) 24 mEq/l 21-33 N ANION GAP (test code = GAP) 15 0-20 N GLUCOSE (test code = GLU) 92 mg/dL 77-141 N BLOOD UREA NITROGEN (test code = BUN) 16 mg/dL 7-25 N GLOMERULAR FILTRATION RATE (test code = GFR) 81.5 80-90 N The Glomerular Filtration Rate is a calculated parameterbased on serum Creatinine, patient age and sex. GFR valuesless than 60 mL/min/1.73 square meters are indicative ofChronic Kidney Disease. Values less than 15 mL/min/1.73square meters indicate Kidney failure. The calculation forGFR is based on the CKD-EPI (202) calculation. This formulais race indifferent and is the recommended formula for GFRby the National Kidney Foundation for Adults.The GFR will not calculate if the sex is unknown or if thepatient's age is <18 years. CREATININE (test code = CREAT) 1.0 mg/dL 0.6-1.3 N CALCIUM (test code = CA) 8.4 mg/dL 8.0-10.5 N [id number] 04:07:00* Test Item Value Reference Range Interpretation Comme nts MAGNESIUM (test code = MAG) 1.79 mg/dL 1.6-2.6 N CBC W/AUTO [id number] 03:47:00* Test Item Value Reference Range Interpretation Comme nts WHITE BLOOD CELL (test code = WBC) 5.0 x10 3/uL 4.5-11.0 N RED BLOOD CELL (test code = RBC) 3.29 x10 6/uL 4.00-5.60 L HEMOGLOBIN (test code = HGB) 12.5 g/dL 12.5-16.9 N HEMATOCRIT (test code = HCT) 37.5 % 37.5-50.7 N MEAN CELL VOLUME (test code = MCV) 114.0 fL 81.0-99.0 H MEAN CELL HGB (test code = MCH) 38.0 pg 27.0-33.0 H MEAN CELL HGB CONCETRATION (test code = MCHC) 33.3 g/dL 33.0-37.0 N RED CELL DISTRIBUTION WIDTH CV (test code = RDW) 13.8 % 11.5-14.5 N RED CELL DISTRIBUTION WIDTH SD (test code = RDW-SD) 58.8 fL 37.0-54.0 H PLATELET COUNT (test code = PLT) 34 x10 3/uL 150-400 L IMMATURE PLATELET FRACTION (test code = IPF) 2.5 % 0.9-11.2 N MEAN PLATELET VOLUME (test c ode = MPV) 9.7 fL 7.0-9.0 H NEUTROPHIL % (test code = NT%) 38.5 % 56.0-77.0 L IMMATURE GRANULOCYTE % (test code = IG%) 0.4 % 0.0-2.0 N LYMPHOCYTE % (test code = LY%) 40.0 % 14.0-32.0 H MONOCYTE % (test code = MO%) 15.7 % 4.8-9.0 H EOSINOPHIL % (test code = EO%) 4.8 % 0.3-3.7 H BASOPHIL % (test code = BA%) 0.6 % 0.0-2.0 N NUCLEATED RBC % (test code = NRBC%) 0.0 % 0-0 N NEUTROPHIL # (test code = NT#) 1.92 x10 3/uL 2.0-7.6 L IMMATURE GRANULOCYTE # (test code = IG#) 0.02 x10 3/uL 0.00-0.03 N LYMPHOCYTE # (test code = LY#) 1.99 x10 3/uL 1.0-3.8 N MONOCYTE # (test code = MO#) 0.78 x10 3/uL 0.1-0.8 N EOSINOPHIL # (test code = EO#) 0.24 x10 3/uL 0.0-0.2 H BASOPHIL # (test code = BA#) 0.03 x10 3/uL 0.0-0.2 N NUCLEATED RBC # (test code = NRBC#) 0.00 x10 3/uL 0.0-0.1 N AG HEPATITIS B [id number] 04:37:00* Test Item Value Reference Range Interpretation Comme nts AG HEPATITIS B SURFACE (test code = HBSAG) NON REACTIVE INDEX NonReactive AB HEPATITIS [id number] 04:37:00* Test Item Value Reference Range Interpretation Comme nts AB HEPATITIS C (test code = HCVAB) NON REACTIVE INDEX NON REACT. AB HIV 1 04:37:00* Test Item Value Reference Range Interpretation Comme nts AB HIV 1 2 (test code = KVA34VM) Nonreactive Nonreactive VITAMIN [id number] 04:02:00* Test Item Value Reference Range Interpretation Comme nts VITAMIN B12 (test code = VITB12) 1144 pg/mL 193-986 H FOLIC [id number] 04:02:00* Test Item Value Reference Range Interpretation Comme nts FOLIC ACID (test code = FOL) 19.5 ng/mL 3.1-17.5 H BASIC METABOLIC [id number] 03:54:00* Test Item Value Reference Range Interpretation Comme nts SODIUM (test code = NA) 137 mEq/L 134-147 N POTASSIUM (test code = K) 3.8 mEq/L 3.4-5.0 N CHLORIDE (test code = CL) 105 mEq/L 100-108 N CARBON DIOXIDE (test code = CO2) 23 mEq/l 21-33 N ANION GAP (test code = GAP) 13 0-20 N GLUCOSE (test code = GLU) 99 mg/dL 77-141 N BLOOD UREA NITROGEN (test code = BUN) 11 mg/dL 7-25 N GLOMERULAR FILTRATION RATE (test code = GFR) 95.8 80-90 H The Glomerular Filtration Rate is a calculated parameterbased on serum Creatinine, patient age and sex. GFR valuesless than 60 mL/min/1.73 square meters are indicative ofChronic Kidney Disease. Values less than 15 mL/min/1.73square meters indicate Kidney failure. The calculation forGFR is based on the CKD-EPI (2020) calculation. This formulais race indifferent and is the recommended formula for GFRby the National Kidney Foundation for Adults.The GFR will not calculate if the sex is unknown or if thepatient's age is <18 years. CREATININE (test code = CREAT) 0.8 mg/dL 0.6-1.3 N CALCIUM (test code = CA) 9.7 mg/dL 8.0-10.5 N [id number] 03:54:00* Test Item Value Reference Range Interpretation Comme nts MAGNESIUM (test code = MAG) 1.61 mg/dL 1.6-2.6 N CBC W/AUTO [id number] 03:40:00* Test Item Value Reference Range Interpretation Comme nts WHITE BLOOD CELL (test code = WBC) 4.6 x10 3/uL 4.5-11.0 N RED BLOOD CELL (test code = RBC) 3.42 x10 6/uL 4.00-5.60 L HEMOGLOBIN (test code = HGB) 13.2 g/dL 12.5-16.9 N HEMATOCRIT (test code = HCT) 38.2 % 37.5-50.7 N MEAN CELL VOLUME (test code = MCV) 111.7 fL 81.0-99.0 H MEAN CELL HGB (test code = MCH) 38.6 pg 27.0-33.0 H MEAN CELL HGB CONCETRATION (test code = MCHC) 34.6 g/dL 33.0-37.0 N RED CELL DISTRIBUTION WIDTH CV (test code = RDW) 14.1 % 11.5-14.5 N RED CELL DISTRIBUTION WIDTH SD (test code = RDW-SD) 58.0 fL 37.0-54.0 H PLATELET COUNT (test code = PLT) 39 x10 3/uL 150-400 L IMMATURE PLATELET FRACTION (test code = IPF) 2.2 % 0.9-11.2 N MEAN PLATELET VOLUME (test c ode = MPV) 9.4 fL 7.0-9.0 H NEUTROPHIL % (test code = NT%) 46.3 % 56.0-77.0 L IMMATURE GRANULOCYTE % (test code = IG%) 0.4 % 0.0-2.0 N LYMPHOCYTE % (test code = LY%) 34.7 % 14.0-32.0 H MONOCYTE % (test code = MO%) 14.7 % 4.8-9.0 H EOSINOPHIL % (test code = EO%) 3.7 % 0.3-3.7 N BASOPHIL % (test code = BA%) 0.2 % 0.0-2.0 N NUCLEATED RBC % (test code = NRBC%) 0.0 % 0-0 N NEUTROPHIL # (test code = NT#) 2.15 x10 3/uL 2.0-7.6 N IMMATURE GRANULOCYTE # (test code = IG#) 0.02 x10 3/uL 0.00-0.03 N LYMPHOCYTE # (test code = LY#) 1.61 x10 3/uL 1.0-3.8 N MONOCYTE # (test code = MO#) 0.68 x10 3/uL 0.1-0.8 N EOSINOPHIL # (test code = EO#) 0.17 x10 3/uL 0.0-0.2 N BASOPHIL # (test code = BA#) 0.01 x10 3/uL 0.0-0.2 N NUCLEATED RBC # (test code = NRBC#) 0.00 x10 3/uL 0.0-0.1 N CBC W/MANUAL [id number] 11:32:00* Test Item Value Reference Range Interpretation Comme nts WHITE BLOOD CELL (test code = WBC) 4.0 x10 3/uL 4.5-11.0 L RED BLOOD CELL (test code = RBC) 3.26 x10 6/uL 4.00-5.60 L HEMOGLOBIN (test code = HGB) 12.5 g/dL 12.5-16.9 N HEMATOCRIT (test code = HCT) 36.8 % 37.5-50.7 L MEAN CELL VOLUME (test code = MCV) 112.9 fL 81.0-99.0 H MEAN CELL HGB (test code = MCH) 38.3 pg 27.0-33.0 H MEAN CELL HGB CONCETRATION (test code = MCHC) 34.0 g/dL 33.0-37.0 N RED CELL DISTRIBUTION WIDTH CV (test code = RDW) 14.2 % 11.5-14.5 N RED CELL DISTRIBUTION WIDTH SD (test code = RDW-SD) 59.3 fL 37.0-54.0 H PLATELET COUNT (test code = PLT) 33 x10 3/uL 150-400 L IMMATURE PLATELET FRACTION (test code = IPF) 2.6 % 0.9-11.2 N MEAN PLATELET VOLUME (test code = MPV) 10.6 fL 7.0-9.0 H BAND NEUTROPHIL (test code = BAND) 0.0 % 0.0-10.0 N ANISOCYTOSIS (test code = ANISO) 2+ PLATELET ESTIMATE (test code = PLTEST) 28-35 THOUSAND ADEQUATE SEGMENTED NEUTROPHILS (test code = SEG) 67.3 % 37-69 N LYMPHOCYTE (test code = LYMPH) 21.8 % 23-55 L MONOCYTE (test code = MON) 8.2 % 0-10 N EOSINOPHIL (test code = EOS) 1.8 % 0.0-4.0 N BASOPHIL (test code = BASO) 0.9 % 0.0-2.0 N MACROCYTOSIS (test code = MACR) 2+ CBC W/AUTO [id number] 09:55:00* Test Item Value Reference Range Interpretation Comme nts WHITE BLOOD CELL (test code = WBC) 4.0 x10 3/uL 4.5-11.0 L RED BLOOD CELL (test code = RBC) 3.51 x10 6/uL 4.00-5.60 L HEMOGLOBIN (test code = HGB) 13.5 g/dL 12.5-16.9 N HEMATOCRIT (test code = HCT) 39.7 % 37.5-50.7 N MEAN CELL VOLUME (test code = MCV) 113.1 fL 81.0-99.0 H MEAN CELL HGB (test code = MCH) 38.5 pg 27.0-33.0 H MEAN CELL HGB CONCETRATION (test code = MCHC) 34.0 g/dL 33.0-37.0 N RED CELL DISTRIBUTION WIDTH CV (test code = RDW) 14.4 % 11.5-14.5 N RED CELL DISTRIBUTION WIDTH SD (test code = RDW-SD) 60.0 fL 37.0-54.0 H PLATELET COUNT (test code = PLT) 37 x10 3/uL 150-400 L IMMATURE PLATELET FRACTION (test code = IPF) 2.7 % 0.9-11.2 N MEAN PLATELET VOLUME (test c ode = MPV) 10.1 fL 7.0-9.0 H NEUTROPHIL % (test code = NT%) 48.5 % 56.0-77.0 L IMMATURE GRANULOCYTE % (test code = IG%) 0.5 % 0.0-2.0 N LYMPHOCYTE % (test code = LY%) 32.4 % 14.0-32.0 H MONOCYTE % (test code = MO%) 15.1 % 4.8-9.0 H EOSINOPHIL % (test code = EO%) 3.0 % 0.3-3.7 N BASOPHIL % (test code = BA%) 0.5 % 0.0-2.0 N NUCLEATED RBC % (test code = NRBC%) 0.0 % 0-0 N NEUTROPHIL # (test code = NT#) 1.93 x10 3/uL 2.0-7.6 L IMMATURE GRANULOCYTE # (test code = IG#) 0.02 x10 3/uL 0.00-0.03 N LYMPHOCYTE # (test code = LY#) 1.29 x10 3/uL 1.0-3.8 N MONOCYTE # (test code = MO#) 0.60 x10 3/uL 0.1-0.8 N EOSINOPHIL # (test code = EO#) 0.12 x10 3/uL 0.0-0.2 N BASOPHIL # (test code = BA#) 0.02 x10 3/uL 0.0-0.2 N NUCLEATED RBC # (test code = NRBC#) 0.00 x10 3/uL 0.0-0.1 N PLT [id number] 09:55:00* Test Item Value Reference Range Interpretation Comme nts PLATELET ESTIMATE (test code = PLTEST) 32-40 THOUSAND ADEQUATE BASIC METABOLIC [id number] 09:17:00* Test Item Value Reference Range Interpretation Comme nts SODIUM (test code = NA) 136 mEq/L 134-147 N POTASSIUM (test code = K) 3.6 mEq/L 3.4-5.0 N CHLORIDE (test code = CL) 104 mEq/L 100-108 N CARBON DIOXIDE (test code = CO2) 26 mEq/l 21-33 N ANION GAP (test code = GAP) 10 0-20 N GLUCOSE (test code = GLU) 115 mg/dL 77-141 N BLOOD UREA NITROGEN (test code = BUN) 12 mg/dL 7-25 N GLOMERULAR FILTRATION RATE (test code = GFR) 81.5 80-90 N The Glomerular Filtration Rate is a calculated parameterbased on serum Creatinine, patient age and sex. GFR valuesless than 60 mL/min/1.73 square meters are indicative ofChronic Kidney Disease. Values less than 15 mL/min/1.73square meters indicate Kidney failure. The calculation forGFR is based on the CKD-EPI (2020) calculation. This formulais race indifferent and is the recommended formula for GFRby the National Kidney Foundation for Adults.The GFR will not calculate if the sex is unknown or if thepatient's age is <18 years. CREATININE (test code = CREAT) 1.0 mg/dL 0.6-1.3 N CALCIUM (test code = CA) 9.5 mg/dL 8.0-10.5 N PROTHROMBIN [id number] 09:11:00* Test Item Value Reference Range Interpretation Comme nts PROTHROMBIN TIME PATIENT (test code = PTP) 12.3 SECONDS 9.3-12.9 N INTERNATIONAL NORMAL RATIO (test code = INR) 1.1 0.8-1.2 N TARGET INR BY INDICATION Indication INR1. Prophylaxis of venous thrombosis 2.0 - 3.0 (orthopedic surgery), Prophylaxis of venous thrombosis (other than high-risk surgery), Treatment of Deep Vein Thrombosis/Pulmonary Embolism, Prevention of systemic embolism - Tissue heart valves, Acute Myocardial Infarction (to prevent systemic embolism), Valvular heart disease, Atrial Fibrillation, Bileaflet mechanical valve in aortic position.2. Mechanical prosthetic valves (high risk), 2.5 - 3.5 Presence of Lupus Anticoagulant or Antiphospholipid Antibodies, Prevention of systemic embolism - Acute Myocardial Infarction (to prevent recurrent infarct). POCT SARS-COV-2 ANTIGEN (BINAX NOW)2023-10-06 22:24:00* Test Item Value Reference Range Interpretation Comme nts POCT SARS-COV-2 ANTIGEN (sean t code = 86984-3) Positive Not Detected A On board controls acceptable with C Line (test code = 3574) Yes Lab Interpretation (test cod e = 59237-8) Abnormal [facility]- CTA ABD PEL W [id number] 00:00:00 [facility] 1955 Sex: M Name: SOLANGE VILLANUEVA [facility] [place] : 1955 Age/S: 68 / M [address] [place] [address] [address] Unit #: [id number] Loc: [place] [address] Phys: Dl Tong MD Acct: [id number] Dis Date: Status: DEP CLI PHONE #: [phone] Exam Date: 09/12/2023 1059 FAX #: [phone] Reason: AORTIC STENOSIS EXAMS: CPT CODE: [id number] CTA ABD PEL W CONT 17433 Radiation Dose CTDIVOL = 104.92 (mGy): DLP = 1542.09 (mGy-cm) PROCEDURE INFORMATION: Exam: CTA Heart And Coronary Arteries With Contrast Exam date and time: 09/12/2023 10:11 AM Age: 68 years old Clinical indication: Other: Aortic stenosis TECHNIQUE: Imaging protocol: CT angiography of the heart, coronary arteries, and bypass grafts (when present) with contrast including 3D image postprocessing. Standard prospective cardiac-gated CAC scoring protocol was used for image acquisition. Following intravenous contrast administration, ECG gated CTA was performed. 3D rendering (Not supervised by radiologist): MIP and/or 3D reconstructed images were created by the technologist. Radiation optimization: All CT scans at this facility use at least one of these dose op timization techniques: automated exposure control; mA and/or kV adjustment per patient size (includes targeted exams where dose is matched to clinical indication); or iterative reconstruction. Contrast material: ISO; Contrast volume: 100 ml; Contrast route: INTRAVENOUS (IV); Pharmacological intervention: None. COMPARISON: No relevant prior studies available. RADIATION DOSE METRICS: CTDI volume (mGy): 104.92 Total DLP (mGy-cm): 1542.09 FINDINGS: PHASE OF CARDIAC CYCLE MEASUREMENTS OBTAINED: 30%of the R-R interval Aortic valve morphology: Possible bicuspid (R-L partial cusp fusion) Valve calcification: Moderate burden. Aortic valve calcium score: 1391 AORTIC ANNULAR MEASUREMENTS: Annular ar ea: 631 mm2 Perimeter: 92 mm Max diameter: 33 mm Min diameter: 25 mm Annular/Subannular calcification: Mild burden Mitral annular calcification: Mild burden Height of left main above annular plane: 16 mm Height of RCA above annular plane: [address] ridge above annular plane: 29 mm PAGE 1 Signed Report (CONTINUED) Name: SOLANGE VILLANUEVA [facility] : 1955 Age/S: 68 / M [address] [place] [address] Blvd Unit #: [id number] Loc: [facility] [place] [address] Phys: Dl Tong MD Acct: [id number] Dis Date: Status: DEP CLI PHONE #: [phone] Exam Date: 09/12/2023 1059 FAX #: [phone] Reason: AORTIC STENOSIS EXAMS: CPT CODE: [id number] CTA ABD PEL W CONT 23687 (Continued) Sinus of Valsalva(left): 38 mm Sinus of Valsalva (right): 35 mm Sinus of Valsalva (noncoronary): 38 mm Mid ascendingaorta diameter: 33 mm LA chamber size: Mildly dilated. Myocardium: No calcification or fatty metaplasia to suggest prior infarct. Coronary arteries: Severe burden of calcified coronary plaque. Thereis left coronary dominance. Pericardium: No thickening, calcification or effusion. IMPRESSION: Aortic root measurements provided for TAVR planning. Aortic annular area: 631 mm2 High risk aortic root features: None. Severe burden of calcified coronary plaque. PROCEDURE INFORMATION: Exam: CTA Chest With Contrast CTA Abdomen and Pelvis With Contrast Exam date and time: 09/12/2023 10:11 AM Age: 68 years old Clinical indication: Other: Aortic stenosis TECHNIQUE: Imaging protocol: Computed tomographic angiography of the chest with contrast. Exam focused on the arteries. Computed tomographic angiography of the abdomen and pelvis with contrast. Exam focused on the arteries. 3D rendering (Not supervised by radiologist): MIP and/or 3D reconstructed images were created by the technologist. Radiation optimization: All CT scans at this facility use at least one of these doseoptimization techniques: automated exposure control; mA and/or kV adjustment per patient size (includes targeted exams where dose is matched to clinical indication); or iterative reconstruction. Contrast material: ISO; Contrast volume: 100 ml; Contrast route: INTRAVENOUS (IV); COMPARISON: No relevant prior studies available. RADIATION DOSE METRICS: CTDI volume (mGy): 104.92 Total DLP (mGy-cm): 1542.09 FINDINGS: VASCULATURE: PAGE 2 Signed Report (CONTINUED) Name: SOLANGE VILLANUEVA [facility] : 1955 Age/S: 68 / M [address] [place] [address] Blvd Unit #: [id number] Loc: [place] [address] Phys: Dl Tong MD Acct: [id number] Dis Date: Status: DEP CLI PHONE #: [phone] Exam Date: 09/12/2023 1058 FAX #: [phone] Reason: AORTIC STENOSIS EXAMS: CPT CODE: [id number] CTA ABD PEL W [id number] (Continued) Aorta: No aortic aneurysm. No aortic dissection. Celiac trunk and mesenteric arteries: No occlusion or significant stenosis. Renal arteries: No occlusion or significant stenosis. Right iliofemoral arteries: Mild calcification. Minimal tortuosity. Minimal luminal diameter 10 mm at the right common femoral artery. Left iliofemoral arteries: Mild calcification. Minimal tortuosity. Minimal luminal diameter 9 mm at the left common femoral artery. CHEST: Lungs: Unremarkable. No consolidation. No masses. Pleural spaces: Small left pleural effusion. No pneumothorax. The ABDOMEN AND PELVIS: Liver: No mass. Gallbladder and bile ducts: Unremarkable. No calcified stones. No ductal dil ation. Pancreas: Unremarkable. No mass. No ductal dilation. Spleen: Unremarkable. No splenomegaly. Adrenal glands: Unremarkable. No mass. Kidneys and ureters: Unremarkable. No solid mass. No hydronephrosis. Stomach and bowel: Unremarkable. No obstruction. No mucosal thickening. Intraperitoneal space: No free air. No significant fluid collection. Urinary bladder: Unremarkable. No mass. Reproductive: Unremarkable as visualized. Lymph nodes: Unremarkable. No enlarged lymph nodes. Bones/joints: There are moderate multilevel forb degenerative changes of the thoracic spine. No acute fracture. Soft tissues: Unremarkable. IMPRESSION: Patent bilateral iliofemoral arteries without significant stenosis. at 0442 Reported andsigned by: Fady Velazquez M.D. PAGE 3 Signed Report (CONTINUED) Name: SOLANGE VILLANUEVA [facility] : 1955 Age/S: 68 / M [address] [place] [address] Blvd Unit #: [id number] Loc: [place] [address] Phys: Dl Tong MD Acct: [id number] Dis Date: Status: DEP CLI PHONE #: [phone] Exam Date: 09/12/2023 1054 FAX #: [phone] Reason: AORTIC STENOSIS EXAMS: CPT CODE: [id number] CTA ABD PEL W CONT 90894 (Continued) CC: Saúl Damon MD; Dl Tong MD Technologist:Russel Gaxiola Jr,RT(R)(CT) CTDI: DLP: Trnscb Date/Time: 09/13/2023 (0442) [email or web address] Orig Print D/T: S: 09/13/2023 (0443) PAGE 4 Signed Report- CT ANGIO [id number] 00:[facility]00[facility] 1955 Sex: M Name: SOLANGE VILLANUEVA [facility] Cherelle Neff : 1955 Age/S: 68 / M [address] [place] [address] Bl Unit #: [id number] Loc: [place] [address] Phys: Dl Tong MD Acct: [id number] Dis Date: Status: DEP CLI PHONE #: [phone] Exam Date: 09/12/2023 1059 FAX #: [phone] Reason: AORTIC STENOSIS EXAMS: CPTCODE: [id number] CT ANGIO CHEST 05266 Radiation Dose CTDIVOL = 104.92 (mGy): DLP = 1542.09 (mGy-cm) PROCEDURE INFORMATION: Exam: CTA Heart And Coronary Arteries With Contrast Exam date and time: 09/12/2023 10:11 AM Age: 68 years old Clinical indication: Other: Aortic stenosis TECHNIQUE: Imaging protocol: CT angiography of the heart, coronary arteries, and bypass grafts (when present) with contrast including 3D image postprocessing. Standard prospective cardiac-gated CAC scoring protocol was used for image acquisition. Following intravenous contrast administration, ECG gated CTA was performed. 3D rendering (Not supervised by radiologist): MIP and/or 3D reconstructed images were created by the technologist. Radiation optimization: All CT scans at this facility use at least one of these dose optimization techniques: automated exposure control; mA and/or kV adjustment per patient size (includes targeted exams where dose is matched to clinical indication); or iterative reconstruction. Contrast material: ISO; Contrast volume: 100 ml; Contrast route: INTRAVENOUS (IV); Pharmacological intervention: None. COMPARISON: No relevant prior studies available. RADIATION DOSE METRICS: CTDI volume (mGy): 104.92 Total DLP (mGy-cm): 1542.09 FINDINGS: PHASE OF CARDIAC CYCLE MEASUREMENTS OBTAINED: 30%of the R-R interval Aortic valve morphology: Possible bicuspid (R-L partial cusp fusion) Valve calcification: Moderate burden. Aortic valve calcium score: 1391 AORTIC ANNULAR MEASUREMENTS: Annular area: 631 mm2 Perimeter: 92 mm Max diameter: 33 mm Min diameter: 25 mm Annular/Subannular calcification: Mild burden Mitral annular calcification: Mild burden Height of left main above annular plane: 16mm Height of RCA above annular plane: [address] ridge above annular plane: 29 mm PAGE 1 Signed Report (CONTINUED) Name: SOLANGE VILLANUEVA [facility] Cherelle Neff : 1955 Age/S: 68 / M [address] [place] [address] Blvd Unit #: [id number] Loc: [place] [address] Phys: Dl Tong MD Acct: [id number] DisDate: Status: DEP CLI PHONE #: [phone] Exam Date: 09/12/2023 105 FAX #: [phone] Reason:AORTIC STENOSIS EXAMS: CPT CODE: [id number] CT ANGIO CHEST 90415 (Continued) Sinus of Valsalva (left): 38 mm Sinus of Valsalva (right): 35 mm Sinus of Valsalva (noncoronary): 38 mm Mid ascending aorta diameter: 33 mm LA chamber size: Mildly dilated. Myocardium: No calcification or fatty metaplasiato suggest prior infarct. Coronary arteries: Severe burden of calcified coronary plaque. There is left coronary dominance. Pericardium: No thickening, calcification or effusion. IMPRESSION: Aortic root measurements provided for TAVR planning. Aortic annular area: 631 mm2 High risk aortic root features: None. Severe burden of calcified coronary plaque. PROCEDURE INFORMATION: Exam: CTA Chest With Contrast CTA Abdomen and Pelvis With Contrast Exam date and time: :11 AM Age: 68 years old Clinical indication: Other: Aortic stenosis TECHNIQUE: Imaging protocol: Computed tomographic angiography of the chest with contrast. Exam focused on the arteries. Computed tomographic angiography of the abdomen and pelvis with contrast. Exam focused on the arteries. 3D rendering (Not supervised by radiologist): MIP and/or 3D reconstructed images were created by the technologist. Radiation optimization: All CT scans at this facility use at least one of these dose optimization techniques: automated exposure control; mA and/or kV adjustment per patient size (includes targeted exams where dose is matched to clinical indication); or iterative reconstruction. Contrast material: ISO; Contrast volume: 100 ml; Contrast route: INTRAVENOUS (IV); COMPARISON: No relevantprior studies available. RADIATION DOSE METRICS: CTDI volume (mGy): 104.92 Total DLP (mGy-cm): 1542.09 FINDINGS: VASCULATURE: PAGE 2 Signed Report (CONTINUED) Name: SOLANGE VILLANUEVA [facility] : 1955 Age/S: 68 / M [address] [place] [address] Blvd Unit #: [id number] Loc: [place] [address] Phys: Dl Colon MD Acct: [id number] Dis Date: Status: DEP CLI PHONE #: [phone] Exam Date: 09/12/2023 1059 FAX #: [phone] Reason: AORTIC STENOSIS EXAMS: CPT CODE: [id number] CT ANGIO CHEST 77460 (Continued) Aorta: No aortic aneurysm. No aortic dissection. Celiac trunk and mesenteric arteries:No occlusion or significant stenosis. Renal arteries: No occlusion or significant stenosis. Right iliofemoral arteries: Mild calcification. Minimal tortuosity. Minimal luminal diameter 10 mm at the right common femoral artery. Left iliofemoral arteries: Mild calcification. Minimal tortuosity. Minimal luminal diameter 9 mm at the left common femoral artery. CHEST: Lungs: Unremarkable. No consolidation. No masses. Pleural spaces: Small left pleural effusion. No pneumothorax. The ABDOMEN AND PELVIS: Liver: No mass. Gallbladder and bile ducts: Unremarkable. No calcified stones. No ductal dilation. Pancreas: Unremarkable. No mass. No ductal dilation. Spleen: Unremarkable. No splenomegaly. Adrenal glands: Unremarkable. No mass. Kidneys and ureters: Unremarkable. No solid mass. No hydronephrosis. Stomach and bowel: Unremarkable. No obstruction. No mucosal thickening. Intraperitoneal space: No free air. No significant fluid collection. Urinary bladder: Unremarkable. No mass. Reproductive: Unremarkable as visualized. Lymph nodes: Unremarkable. No enlarged lymph nodes. Bones/joints: There aremoderate multilevel forb degenerative changes of the thoracic spine. No acute fracture. Soft tissues: Unremarkable. IMPRESSION: Patent bilateral iliofemoral arteries without significant stenosis. at 0442 Reported and signed by: Fady Velazquez M.D. PAGE 3 Signed Report (CONTINUED) Name: SOLANGE [facility]ILLANUEVA [facility]Luz Villarreal [place]DOB: 1955 Age/S: 68 / M [address] [place] [address] Blvd Unit #: [id number] Loc: [place] [address] Phys: Dl Tong MD Acct: [id number] Dis Date: Status: DEP CLI PHONE #: [phone] Exam Date: 09/12/2023 1059 FAX #: [phone] Reason: AORTIC STENOSIS EXAMS: CPT CODE: [id number] CT ANGIO CHEST 13668 (Continued) CC: Saúl Damon MD; Dl Tong MD Technologist:Russel Gaxiola Jr, RT(R)(CT) CTDI: DLP: Trnscb Date/Time: 09/13/2023 (441) [email or web address] Orig Print D/T: S: 09/13/2023 (441) PAGE 4 Signed Report- CTA HEART W CN [id number] 00:00:00 [facility]LE LAKEName: SOLANGE VILLANUEVA : 1955 Sex: M Name: SOLANGE VILLANUEVA [facility] Cherelle Neff : 1955 Age/S: 68 / M [address] [place] [address] Blvd Unit #: [id number] Loc: [place] [address] Phys: Dl Tong MD Acct: [id number] Dis Date: Status: DEP CLI PHONE#: [phone] Exam Date: 09/12/2023 1059 FAX #: [phone] Reason: EXAMS: CPT CODE: [id number] CTA HEART W CN ART/GRAFTS 39745 Radiation Dose CTDIVOL = 104.92 (mGy): DLP = 1542.09 (mGy-cm) PROCEDURE INFORMATION: Exam: CTA Heart And Coronary Arteries With Contrast Exam date and time: 09/12/2023 10:11 AM Age: 68 years old Clinical indication: Other: Aortic stenosis TECHNIQUE: Imaging protocol: CT angiography of the heart, coronary arteries, and bypass grafts (when present) with contrast including 3D image postprocessing. Standard prospective cardiac-gated CAC scoring protocol was used for image acquisition. Following intravenous contrast administration, ECG gated CTA was performed. 3D rendering (Not supervised by radiologist): MIP and/or 3D reconstructed images were created by the technologist. Radiation optimization: All CT scans at this facility use at least one of these dose optimization techniques: automated exposure control; mA and/or kV adjustment per patient size (includes targeted exams where dose is matched to clinical indication); or iterative reconstruction. Contrast material: ISO; Contrast volume: 100 ml; Contrast route: INTRAVENOUS (IV); Pharmacological intervention: None. COMPARISON: No relevant prior studies available. RADIATION DOSE METRICS: CTDI volume (mGy): 104.92 Total DLP (mGy-cm): 1542.09 FINDINGS: PHASE OF CARDIAC CYCLE MEASUREMENTS OBTAINED: 30% of the R-R interval Aortic valve morphology: Possible bicuspid (R-L partial cusp fusion) Valve calcification: Moderate burden. Aortic valve calcium score: 1391 AORTIC ANNULAR MEASUREMENTS: Annular area: 631 mm2 Perimeter: 92 mm Max diameter: 33 mm Min diameter: 25 mm Annular/Subannular calcification: Mild burden Mitral annular calcification: Mild burden Height of left main above annular plane: 16 mm Height of RCA above annular plane: [address] ridge above annular plane: 29 mm PAGE 1 Signed Report (CONTINUED) Name: SOLANGE VILLANUEVA [facility] : 1955 Age/S: 68 / M [address] [place], [place] [address]Blvd Unit #: [id number] Loc: [place] [address] Phys: Dl Tong MD Acct: [id number] Dis Date:Status: DEP CLI PHONE #: [phone] Exam Date: 09/12/2023 1059 FAX #: [phone] Reason: EXAMS: CPT CODE: [id number] CTA HEART W CN ART/GRAFTS 59714 (Continued) Sinus of Valsalva (left): 38 mm Sinus of Valsalva (right): 35 mm Sinus of Valsalva (noncoronary): 38 mm Mid ascending aorta diameter: 33 mm LA chamber size: Mildly dilated. Myocardium: No calcification or fatty metaplasia to suggest prior infarct. Coronary arteries: Severe burden of calcified coronary plaque. There is left coronary dominance. Pericardium: No thickening, calcification or effusion. IMPRESSION: Aortic root measurements provided for TAVR planning. Aortic annular area: 631 mm2 High risk aortic root features: None. Severe burden of calcified coronary plaque. PROCEDURE INFORMATION: Exam: CTAChest With Contrast CTA Abdomen and Pelvis With Contrast Exam date and time: 09/12/2023 10:11 AM Age: 68 years old Clinical indication: Other: Aortic stenosis TECHNIQUE: Imaging protocol: Computed tomographic angiography of the chest with contrast. Exam focused on the arteries. Computed tomographic angiography of the abdomen and pelvis with contrast. Exam focused on the arteries. 3D rendering (Not s upervised by radiologist): MIP and/or 3D reconstructed images were created by the technologist. Radiation optimization: All CT scans at this facility use at least one of these dose optimization techniques: automated exposure control; mA and/or kV adjustment per patient size (includes targeted examswhere dose is matched to clinical indication); or iterative reconstruction. Contrast material: ISO;Contrast volume: 100 ml; Contrast route: INTRAVENOUS (IV); COMPARISON: No relevant prior studies available. RADIATION DOSE METRICS: CTDI volume (mGy): 104.92 Total DLP (mGy-cm): 1542.09 FINDINGS: VASCULATURE: PAGE 2 Signed Report (CONTINUED) Name: SOLANGE VILLANUEVA [facility] [place] : 1955 Age/S:68 / M [address] [place], [place] [address]vd Unit #: [id number] Loc: [place] [address] Phys: Dl Tong MD Acct: [id number] Dis Date: Status: DEP CLI PHONE #: [phone] Exam Date: 09/12/2023 1059 FAX #: [phone] Reason: EXAMS: CPT CODE: [id number] CTA HEART W CN ART/GRAFTS 01061 (Continued) Aorta: Noaortic aneurysm. No aortic dissection. Celiac trunk and mesenteric arteries: No occlusion or significant stenosis. Renal arteries: No occlusion or significant stenosis. Right iliofemoral arteries: Mild calcification. Minimal tortuosity. Minimal luminal diameter 10 mm at the right common femoral artery. Left iliofemoral arteries: Mild calcification. Minimal tortuosity. Minimal luminal diameter 9 mm at the left common femoral artery. CHEST: Lungs: Unremarkable. No consolidation. No masses. Pleural spaces: Small left pleural effusion. No pneumothorax. The ABDOMEN AND PELVIS: Liver: No mass. Gallbladder and bile ducts: Unremarkable. No calcified stones. No ductal dilation. Pancreas: Unremarkable. No mass. No ductal dilation. Spleen: Unremarkable. No splenomegaly. Adrenal glands: Unremarkable. No mass. Kidneys and ureters: Unremarkable. No solid mass. No hydronephrosis. Stomach and bowel: Unremarkable. No obstruction. No mucosal thickening. Intraperitoneal space: No free air. No significant fluid collection. Urinary bladder: Unremarkable. No mass. Reproductive: Unremarkable as visualized. Lymph nodes: Unremarkable. No enlarged lymph nodes. Bones/joints: There are moderate multilevel forb degenerative changes of the thoracic spine. No acute fracture. Soft tissues: Unremarkable. IMPRESSION: Patent bilateral iliofemoral arteries without significant stenosis. Electronically Signedby Rossi Velazquez on 09/13/2023 at 0442 Reported and signed by: Fady Velazquez M.D. PAGE 3 Signed Report (CONTINUED) Name: SOLANGE VILLANUEVA [facility] Cherelle Neff : 1955 Age/S: 68 / M [address] [place], [place] [address]vd Unit #: [id number] Loc: [place] [address] Phys: Dl Tong MD Acct: [id number] Dis Date: Status: DEP CLI PHONE #: [phone] Exam Date: 09/12/2023 1059 FAX #: [phone] Reason: EXAMS: CPT CODE: [id number] CTA HEART W CN ART/GRAFTS 22393 (Continued) CC: Saúl Damon MD; Dl Tong MD Technologist:Russel Gaxiola Jr, RT(R)(CT) CTDI: DLP: Trnscb Date/Time: 09/13/2023 (044) [email or web address] Orig Print D/T: S: 09/13/2023 (0443) PAGE 4 Signed ReportCOVID 19 Asymptomatic IH [id number] 12:07:00* Test Item Value Reference Range Interpretation Comme nts COVID 19 Asymptomatic IH AG (test code = COVNONPUIAG) Negative Negative A negative resul t is presumptive and should be confirmedwith an FDA authorized molecular assay, if necessary forpatient management.A positive result does not rule out co-infections withother pathogens.This test detects both viable (live) and non-viable,SARS-CoV, and SARS-CoV-2. Test performance depends on theamount of virus (antigen) in the sample.This test has not been FDA cleared or approved; the test hasbeen authorized by FDA under an Emergency Use Authorization(EUA) for use by laboratories certified under the CLIA thatmeet the requirements to perform moderate, high or waivedcomplexity tests. CREATININE W ESTIMATED [id number] 10:09:00* Test Item Value Reference Range Interpretation Comme nts BEDSIDE CREATININE (test code = CREATBED) 0.9 MG/DL 0.6-1.3 N Performed by cer tified charging [facility]formed by certified charging crane operator at [facility] GLOMERULAR FILTRATION RATE POC (test code = GFRBED) 92 ML/MIN Performed b y certified charging [facility] Glomer[facility] Filtration Rate is a calculated parameterbased on serum Creatinine, patient age and sex. GFR valuesless than 60 mL/min/1.73 square meters are indicative ofChronic Kidney Disease. Values less than 15 mL/min/1.73square meters indicate Kidney failure. The calculation forGFR is based on the CKD-EPI (2020) calculation. This formulais race indifferent and is the recommended formula for GFRby the National Kidney Foundation for Adults.The GFR will not calculate if the sex is unknown or if thepatient's age is <18 years.Previously reported result: 92 ML/MINEdited by: KAMLESH on 09/12/23:087528 1009: GFRBED previously reported as: 92 ML/MIN
[2024-10-09 10:34] LABS: Absolute Eosinophils 0.2 K/uL (0-0.5); Absolute Lymphocytes (CBC) 0.4 K/uL (0.7-4.9); Absolute Monocytes 0.8 K/uL (0.1-1.3); Absolute Neutrophil 3.2 K/uL (1.8-8.0); Basophils % 0.5 % (0-1.3); Eosinophils % 4.6 % (0-4.4); Lymphocytes % 8.5 % (15.3-44.8); MCHC 34.4 g/dL (32.0-36.0); MCV 113.4 fL (80-100); MPV 7.5 fL (7.6-11.3); Monocytes % 16.8 % (3.3-12.3); Neutrophils % 69.6 % (41.7-73.7); Platelets 24 thou/uL (152-406); RBC Red Blood Cell Count 2.82 M/uL (4.33-5.43); Red Cell Distribution Width 14.6 % (12.1-15.2)
[2024-10-09 10:52] LABS: Albumin 2.4 g/dL (3.4-5.0); Albumin/Globulin Ratio 0.8 (1.1-1.8); Anion Gap 9.6 mEq/L (5.0-15.0); Bilirubin Direct 0.4 mg/dL (0-0.2); Bilirubin Indirect, Calculated 0.9 mg/dL (0.2-0.8); Bilirubin Total 1.3 mg/dL (0.2-1.0); Globulin 3.2 g/dL (2.3-3.5); Potassium 3.6 mEq/L (3.5-5.1); Protein, Total 5.6 g/dL (6.4-8.2); Troponin High Sensitivity 17.3 pg/mL (<58.9)
[2024-10-09 11:10] LABS: Blood Morphology Comment NOTED (NOT SEEN); Macrocytosis 2+; Platelet Estimate DECR; White Blood Cell Scan OK (OK)
[2024-10-09 11:24] LABS: Specific Gravity > 1.030 (1.005-1.030); Sqamous Epithelial <5 /HPF (None Seen); Urine Bacteria None Seen /HPF (<20); Urine Bilirubin NEGATIVE (Negative); Urine Blood Negative (Negative); Urine Clarity Clear (Clear); Urine Color Yellow (Yellow); Urine Culture Reflex Order NOT NEEDED; Urine Glucose NEGATIVE (Negative); Urine Ketones NEGATIVE (Negative); Urine Micro Reflex YN NO BILL MICROSCOPIC; Urine Mucus 2+ /HPF (None Seen); Urine Nitrite NEGATIVE (Negative); Urine Protein TRACE (Negative); Urine RBC None Seen /HPF (None Seen); Urine Urobilinogen Normal (Normal); Urine WBC None Seen /HPF (<5)
--- NOTE | 2024-10-09 11:36 | RAD REPORT ---
EXAMINATION: CT LUMBAR SPINE WITHOUT CONTRAST CLINICAL INDICATION: Male, 69 years old. PAIN TECHNIQUE: Axial CT images were obtained through the lumbar spine in soft tissue and bone windows wit hout intravenous contrast. Coronal and Sagittal reformatted images were created from the data set. One or more of the following dose reduction techniques were used: Automated exposure control, adjustm ent of the mA and/ or kV according to patient size, and/or iterative reconstruction. Unless otherwise specified, incidental findings do not require dedicated imaging follow-up. COMPARISON: No prior exam. FINDINGS: For purposes of this dictation, it is assumed that there are 5 non rib-bearing lumbar type vertebrae, and the most caudal fully segmented lumbar vertebra is labeled L5. ALIGNMENT: The lumbar spine demonstrates normal alignment without scoliosis or spondylolisthesis. BONES: Mild superior endplate compression deformity at L2, asymmetric to the right with mild anterior wedging. Minimal superior endplate compression deformity with Schmorl's node formation at L5. Other vertebral body heights are preserved. Diffuse osteopenia somewhat limits evaluation. DISCS: Intervertebral disc space heights are maintained. LEVELS: Mild multilevel posterior disc bulges with mild facet arthropathy especially at L5-S1. No hig h-grade canal or foraminal stenosis appreciated. SOFT TISSUE: Small volume free fluid in the pelvis. IMPRESSION: Superior endplate compression deformities at L2 and to lesser extent at L5, indeterminate age. Please correlate for focal symptoms. Small volume free fluid in the pelvis, nonspecific.
--- NOTE | 2024-10-09 11:40 | RAD REPORT ---
EXAM: CT Chest For Pe Angio TECHNIQUE: CT angiogram of the chest was performed following intravenous contrast administration, inc luding sagittal and coronal as well as maximum intensity projection reformats. One or more of the following dose reduction techniques were used: Automated exposure control, adjustment of the mA and k V according to patient size, and iterative reconstruction. Unless otherwise specified, incidental findings do not require dedicated imaging follow-up. INDICATION: [facility] DYSPNEA Bed Name: 6 Y COMPARISON: 11/27/2022. FINDINGS: LINES/TUBES: None. PULMONARY ARTERIES: Main pulmonary arteries are normal in caliber. No filling defects within the pul monary arteries to suggest pulmonary embolus. LUNGS AND AIRWAYS: Central and dependent predominant interstitial prominence and hazy groundglass opa cities. Central airways appear patent. PLEURA: Small bilateral pleural effusions larger on the left. No pneumothorax. HEART AND MEDIASTINUM: The visualized thyroid gland is normal. No mediastinal, hilar, or axillary lym phadenopathy. Prosthetic aortic valve place. Heart is mildly enlarged. No pericardial effusion. SOFT TISSUES AND BONES: No acute osseous abnormality. No significant soft tissue finding. UPPER ABDOMEN: Marked distention of the gallbladder, incompletely imaged. Mild perihepatic ascites.. IMPRESSION: No evidence of acute central pulmonary emboli. Central independent predominant interstitial prominence and hazy groundglass opacities, with trace bi lateral effusions larger on the left, may reflect central congestive changes or mild pulmonary edema. Mild cardiomegaly. Small volume perihepatic ascites. Marked distention of the gallbladder, incompletely imaged. Please c orrelate clinically.
--- NOTE | 2024-10-09 12:25 | ER ---
Nurse's Notes [facility] Name: Papito Christy Age: 69 yrs Sex: Male : 1955 Arrival Date: 10/09/2024 Time: 09:34 Bed 7 Private MD: Diagnosis: Low back pain Presentation: 10/09 09:57 Chief complaint: Patient states: was lifting a chair upstairs and lower back started ko1 hurting but also just feel weak and short of breath. Coronavirus screen: At this time, the client does not indicate any symptoms associated with coronavirus-19. Ebola Screen: No symptoms or risks identified at this time. Initial Sepsis Screen: Does the patient meet any 2 criteria? No. Patient's initial sepsis screen is negative. Does the patient have a suspected source of infection? No. Patient's initial sepsis screen is negative. Risk Assessment: Do you want to hurt yourself or someone else? Patient reports no desire to harm self or others. Onset of symptoms was October 09, 2024. 09:57 Method Of Arrival: Ambulatory ko1 09:57 Acuity: EUNICE 3 ko1 Triage Assessment: 10:00 General: Appears in no apparent distress. Behavior is calm, cooperative, appropriate ko1 for age. Pain: Complains of pain in back. 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 - Infectious Disease History:: Denies. - Social history:: Smoking status: Patient denies any tobacco usage or history of. - Family history:: not pertinent. Screenin:10 [facility] ED Fall Risk Assessment (Adult) History of falling in the last 3 months, ko1 including since admission No falls in past 3 months (0 pts) Confusion or Disorientation No (0 pts) Intoxicated or Sedated No (0 pts) Impaired Gait No (0 pts) Mobility Assist Device Used No (0 pt) Altered Elimination No (0 pt) Score/Fall Risk Level 0 - 2 = Low Risk Oriented to surroundings, Maintained a safe environment, Educated pt \T\ family on fall prevention, incl call for assistance when getting out of bed, Assessed \T\ reinforced patient's understanding of fall precautions, Provided non-skid footwear, Hourly rounding (assess needs \T\ fall precautionary measures) done. Abuse screen: Denies threats or abuse. Denies injuries from another. Nutritional screening: No deficits noted. Tuberculosis screening: No symptoms or risk factors identified. Assessment: 10:10 General: Appears in no apparent distress. Pain: Complains of pain in back. Neuro: No ko1 deficits noted. Cardiovascular: No deficits noted. Respiratory: Reports shortness of breath. GI: No deficits noted. No signs and/or symptoms were reported involving the gastrointestinal system. : No deficits noted. No signs and/or symptoms were reported regarding the genitourinary system. EENT: No deficits noted. No signs and/or symptoms were reported regarding the EENT system. Derm: No deficits noted. No signs and/or symptoms reported regarding the dermatologic system. Musculoskeletal: Reports pain in back. Vital Signs: 09:57 BP 120 / 66; Pulse 74; Resp 18; Temp 98.1; Pulse Ox 100% ; Weight 100.7 kg; Height 6 ko1 ft. 2 in. ; 10:25 BP 114 / 64; Pulse 93; Resp 16; Pulse Ox 99% ; ko1 11:18 BP 116 / 61; Pulse 90; Resp 15; Pulse Ox 98% ; ko1 12:04 BP 110 / 65; Pulse 89; Resp 15; Pulse Ox 100% ; ko1 09:57 Body Mass Index 28.50 (100.70 kg, 187.96 cm) ko1 ED Course: 09:39 Patient arrived in ED. al6 09:40 Sherwin Pierce MD is Attending Physician. rt 09:57 Jillian Murray, LILIAN is Primary Nurse. ko1 09:59 Triage completed. ko1 10:00 Arm band placed on right wrist. Patient placed in an exam room, on a stretcher, on ko1 pulse oximetry, Patient notified of wait time. 10:10 Patient has correct armband on for positive identification. Allergy band placed. Placed ko1 in gown. Bed in low position. Call light in reach. Side rails up X 1. Provided Education on: labs, meds. Pulse ox on. NIBP on. Door closed. Noise minimized. Lights dimmed. Warm blanket given. Pillow given. 10:22 EKG done, by ED staff, reviewed by Sherwin Pierce MD. aa5 10:24 Basic Metabolic Panel Sent. ko1 10:24 CBC with Diff Sent. ko1 10:24 LFT's Sent. ko1 10:24 Troponin HS Sent. ko1 10:24 Initial lab(s) drawn, by me, sent to lab. EKG done, by ED staff, reviewed by Sherwin Pierce MD. Inserted saline lock: 22 gauge in right antecubital area, using aseptic technique. Blood collected. Flushed with 10 mL NS. 10:39 CT Lumbar Spine Wo Con In Process Unspecified. EDMS 10:39 CT Chest For PE Angio In Process Unspecified. EDMS 11:10 Patient requests rest room assistance. ko1 11:10 Assisted to bathroom. ko1 11:13 UAM Sent. ko1 11:18 Urine collected: clean catch specimen, clayton colored. ko1 12:35 No provider procedures requiring assistance completed. IV discontinued, intact, jb4 bleeding controlled, No redness/swelling at site. Pressure dressing applied. Administered Medications: No medications were administered Medication: 10:49 VIS not applicable for this client. ko1 Outcome: 12:24 Discharge ordered by MD. rt 12:35 Discharged to home ambulatory, with family, jb4 12:35 Condition: stable 12:35 Discharge instructions given to patient, family, Instructed on discharge instructions, follow up and referral plans. medication usage, Demonstrated understanding of instructions, follow-up care, medications, Prescriptions given X 2, 12:43 Patient left the ED. jb4 Signatures: Dispatcher [employer] EDMS Ivania Grady, RN RN aa5 Ced Calderon, RN RN jb4 Jillian Murray, RN RN [email or web address] Sherwin Pierce MD MD rt Lashay [email or web address]
--- NOTE | 2024-10-09 12:25 | EDPHYS ---
Physician Documentation [facility] Name: Papito Christy Age: 69 yrs Sex: Male : 1955 Arrival Date: 10/09/2024 Time: 09:34 Bed 7 Private MD: ED Physician Sherwin Pierce HPI: 10/09 10:15 This 69 yrs old Male presents to ER via Ambulatory with complaints of Low Back Pain, rt Weakness. 10:15 Patient with history of prostate cancer on hormone therapy, chronic prednisone therapy rt presents to the ED with a right low back pain for little over a week after lifting a recliner up some stairs. The patient reportedly has been having progressively worsening muscle weakness over the past several months. During this time, he is also had a shortness of breath, denies any cough at this time. States that the symptoms have worsened today prompting him to come to the ED for further evaluation. Denies numbness, saddle anesthesia, bowel, bladder incontinence, urinary retention. Denies other acute complaints at this time, symptoms are moderate in severity, no other aggravating or alleviating factors.. 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 - Infectious Disease History:: Denies. - Social history:: Smoking status: Patient denies any tobacco usage or history of. - Family history:: not pertinent. ROS: 10:15 Constitutional: Negative for fever, chills, and weight loss, Cardiovascular: Negative rt for chest pain, palpitations, and edema, Abdomen/GI: Negative for abdominal pain, nausea, vomiting, diarrhea, and constipation, Skin: Negative for injury, rash, and discoloration, 10:15 Respiratory: Positive for shortness of breath, Negative for cough, 10:15 Back: Positive for pain at rest, pain with movement, 10:15 Neuro: Positive for weakness, Negative for numbness, Exam: 10:15 Constitutional: This is a well developed, well nourished patient who is awake, alert, rt and in no acute distress. Head/Face: Normocephalic, atraumatic. Chest/axilla: Normal chest wall appearance and motion. Nontender with no deformity. No lesions are appreciated. Cardiovascular: Regular rate and rhythm with a normal S1 and S2. No gallops, murmurs, or rubs. Normal PMI, no JVD. No pulse deficits. Respiratory: Lungs have equal breath sounds bilaterally, clear to auscultation and percussion. No rales, rhonchi or wheezes noted. No increased work of breathing, no retractions or nasal flaring. Abdomen/GI: Soft, non-tender, with normal bowel sounds. No distension or tympany. No guarding or rebound. No evidence of tenderness throughout. Skin: Warm, dry with normal turgor. Normal color with no rashes, no lesions, and no evidence of cellulitis. 10:15 Back: Mild tenderness to the right lower lumbar region, no midline tenderness, no step-offs, no costovertebral angle tenderness, 10:15 Neuro: Strength and sensation intact in bilateral lower extremities, 10:38 ECG was reviewed by the Attending Physician. rt Vital Signs: 09:57 BP 120 / 66; Pulse 74; Resp 18; Temp 98.1; Pulse Ox 100% ; Weight 100.7 kg; Height 6 ko1 ft. 2 in. ; 10:25 BP 114 / 64; Pulse 93; Resp 16; Pulse Ox 99% ; ko1 11:18 BP 116 / 61; Pulse 90; Resp 15; Pulse Ox 98% ; ko1 12:04 BP 110 / 65; Pulse 89; Resp 15; Pulse Ox 100% ; ko1 09:57 Body Mass Index 28.50 (100.70 kg, 187.96 cm) ko1 MDM: 09:57 Medical Screening Exam initiated rt 13:06 Differential diagnosis: Mechanical back pain, metastasis, SCA, epidural hematoma. Data rt reviewed: vital signs, nurses notes, lab test result(s), radiologic studies. I considered the following discharge prescriptions or medication management in the emergency department Medications were administered in the Emergency Department. See MAR. Independent interpretation of the following test(s) in the Emergency Department CT Scan: My interpretation is Compression fracture seen on interpretation of CT scan images. Test considered but Not performed: MRI: Patient has no signs of cord compression, the pain started after lifting a heavy object, pain is consistent with musculoskeletal pain. Did consider epidural hematoma given low platelets, without other secondary signs such as saddle anesthesia, numbness, tingling, bowel, bladder incontinence, I believe that this is less likely. I did inform the patient of this. He was instructed to return for MRI if he has worsening pain or if he develops any of the symptoms.. Care significantly affected by the following chronic conditions: Prostate cancer, thrombocytopenia. Counseling: I had a detailed discussion with the patient and/or guardian regarding the historical points, exam findings, and any diagnostic results supporting the discharge/admit diagnosis, lab results, radiology results, the need for outpatient follow up, to return to the emergency department if symptoms worsen or persist or if there are any questions or concerns that arise at home. Response to treatment: the patient's symptoms have mildly improved after treatment. 10/09 10:12 Order name: Basic Metabolic Panel; Complete Time: 11:12 rt 10/09 10:12 Order name: CBC with Diff; Complete Time: 11:12 rt 10/09 10:12 Order name: LFT's; Complete Time: 11:12 rt 10/09 10:12 Order name: Troponin HS; Complete Time: 11:12 rt 10/09 10:12 Order name: UAM; Complete Time: 11:40 rt 10/09 11:10 Order name: CBC Smear Scan; Complete Time: 11:12 EDMS 10/09 10:12 Order name: CT Lumbar Spine Wo Con; Complete Time: 11:40 rt 10/09 10:12 Order name: CT Chest For PE Angio; Complete Time: 11:41 rt 10/09 10:12 Order name: EKG; Complete Time: 10:13 rt 10/09 10:12 Order name: Cardiac monitoring; Complete Time: 10:15 rt 10/09 10:12 Order name: EKG - Nurse/Tech; Complete Time: 10:24 rt 10/09 10:12 Order name: IV Saline Lock; Complete Time: 10: rt 10/09 10:12 Order name: Labs collected and sent; Complete Time: : rt 10/09 10:12 Order name: O2 Per Protocol; Complete Time: 10:15 rt 10/09 10:12 Order name: O2 Sat Monitoring; Complete Time: 10:15 rt EC:38 Rate is 90 beats/min. Rhythm is regular, 1st Degree Block with Occasional PVCs. QRS rt [place] is Normal. [place] interval is normal. QRS interval is normal. QT interval is normal. No Q waves. No ST changes noted. Interpreted by me. Administered Medications: No medications were administered Disposition Summary: 10/09/24 12:24 Discharge Ordered Notes: Location: Home rt Problem: new rt Symptoms: have improved rt Condition: Stable rt Diagnosis - Low back pain rt Followup: rt - With: Private Physician - When: 2 - 3 days - Reason: Discharge Instructions: - Discharge Summary Sheet rt - Acute Back Pain, Adult rt Forms: - Work release form rt - Medication Reconciliation Form rt - Antibiotic Education rt - Prescription Opioid Use rt - Patient Portal Instructions rt - Leadership Thank You Letter rt Prescriptions: - Lidoderm 5 % Topical adhesive patch, medicated - apply 1 package TOPICAL route per package directions leave on most painful area rt for up to 12 hrs; 10 patch; Refills: 0, Product Selection Permitted - Cyclobenzaprine 10 mg Oral Tablet - take 1 tablet ORAL route every 8 hours As needed; 30 tablet; Refills: 0, rt Product Selection Permitted Signatures: Dispatcher [employer] Jillian Marquis, RN RN ko1 Sherwin Pierce MD MD rt
[2024-10-09 18:58] VITALS: TEMP 98.1
[2024-10-09 19:17] VITALS: BP 110/65; O2SAT 100
== END 2024-10-09 12:43 | disposition home or self-care (01) ==
LOC: ER 09:34
DX: M54.50 Low back pain, unspecified (principal); R53.1 Weakness; Z85.46 Personal history of malignant neoplasm of prostate
CPT/HCPCS: 85025; 81001; 80048; 36415; 80076; 84484; 72131; 71275; 99284; Q9967; 93005

== ENCOUNTER 2024-10-30 14:11 | Inpatient (IN) | payer BC, OTHER ==
--- OUTSIDE RECORDS SUMMARY | 2024-10-30 14:16 | XMS REPORT | Continuity of Care Document ---
Author Name Unknown Address [address] [facility] [place] [address] [facility] Address [address] [facility] [place] [address] Care Team Providers Care Pyroglazer Name Role Phone SAÚL DAMON Primary Care Physician Unav ailable Saúl Damon Attending Clinician Unavailable Estrellita Whitfield MD Attending Clinician [phone] Unknown, Attending Attending Clinician Unavailab ESTRELLITA Myles Attending Clinician Unavailable Chidi Garcia Attending Clinician UnavailTessa Starr Attending Clinician Unavailable Fred QUINTANA, Sunil Torrez Attending Clinician UnavailSushant Sena Attending Clinician [phone] Unknown, Attending Attending Clinician Unavailab SUSHANT Alarcon Attending Clinician Unavailable Doctor Unassigned, Remer Attending Clinician U karelyailDl He Attending Clinician Unavailable Provider, [facility] Attending Clinician Un available Jie Winston Attending Clinician [phone] JIE MÁRQUEZ Attending Clinician Unavailable Chidi Garcia Admitting Clinician UnavailTessa Starr Admitting Clinician Unavailable Physician, No Primary or Family Admitting Clinic ansley Unavailable Payers Payer Name Policy Type Policy Number Effective Date Expirati on Date Source Blue Cross Blue [facility] 6 [id number] [facility] Problems Condition Name Condition Details Condition Category Status Onset Date Resolution Date Last Treatment Date Treating Clinician Comments Source No known active problems No known active problems Disease Univers [facility] [id number] Family history of prostate cancer in father Problem [facility] [id number] Elevated PSA Problem [facility] [id number] Secondary malignant neoplasm of other specified sites Problem [facility] [id number] Secondary malignant neoplasm of bone Problem [facility] [id number] Benign prostatic hyperplasi a with lower urinary tract symptoms Problem [facility] [id number] Chronic prostatiti s Problem [facility] Hypothyroi dism Other specified hypothyroi dism Problem [facility] Heart valve replacemen t Presence of other heart-valv e replacemen t Problem [facility] Malignant tumor of prostate Malignant neoplasm of prostate Problem [facility] [id number] Sinus tachycardi a Problem [facility] Lower urinary tract symptoms due to benign prostatic hypertroph y Benign localized prostatic hyperplasi a with lower urinary tract symptoms (LUTS) Problem [facility] [id number] Other obstructiv e and reflux uropathy Problem [facility] [id number] Prostate nodule Problem [facility] Thrombocyt openia Thrombocyt openia Problem [facility] [id number] Primary malignant neoplasm of prostate with high risk of recurrence due to stage T3a and PSA greater than 20 Problem [facility] Allergies, Adverse Reactions, Alerts Allergy Name Allergy Type Status Severity Reaction(s) Onset Date Inactive Date Treating Clinician Comments Source Penicill ins DA Active SV SINCE CHILDHOOD 11-18 00:00: 00 [facility] Penicill ins DA Active SV SINCE CHILDHOOD 3-04 00:00: 00 [facility] PENICILL INS Drug Class Active Unknown-Cmnt 2019-09 00:00: 00 [facility] Penicill ins Propensi ty to adverse reaction s Active Unknown - See comments 2019-09 00:00: 00 [facility] Penicill ins Propensi ty to adverse reaction s Active Unknown - See comments 2019-09 00:00: 00 [facility] NO KNOWN ALLERGIE S Drug Class Active [facility] sulfamet hoxazole / trimetho prim sulfamet hoxazole / trimetho prim Active anaphylaxis [facility] sulfacet amide sulfacet amide Active anaphylaxis [facility] [id number] Drug allergy Active Unknown [facility] Social History Social Habit Start Date Stop Date Quantity Comments Source Exposure to SARS-CoV-2 (event) Not sure [facility] Sexual orientation U [facility] History of Tobacco Use [facility] Sex Assigned At [facility] History of Social function 2024-09-21 00:00:00 2024-09-21 00:00:00 [facility] Tobacco use and exposure 2020-08-08 00:00:00 2020-08-08 00:00:00 Smokeless tobacco non-user [facility] Smoking Status Start Date Stop Date Source Unknown if ever smoked [facility] Never Smoker [facility] Medications Ordered Medication Name Filled Medication Name Start Date Stop Date Current Medication? Ordering Clinician Indication Dosage Frequency Signature (SIG) Comments Components Source azelastine 137 mcg (0.1 %) nasal spray 09-21 00:00: 00 Yes [id number] 1{spray } Use 1 [place] in each nostril in the morning and 1 [place] in the evening. Use in each nostril as directed [facility] fluticasone propionate 50 mcg/actuati on nasal spray 09-21 00:00: 00 Yes [id number] 1{spray } Use 1 [place] in each nostril in the morning. [facility] benzonatate 100 mg capsule 09-21 00:00: 00 Yes [id number] 200mg Take 2 capsules by mouth every 8 (eight) hours as needed for Cough. [facility] guaiFENesin 400 mg tablet 09-21 00:00: 00 Yes [id number] 400mg Take 1 tablet by mouth every 4 (four) hours as needed for Cough. [facility] doxycycline hyclate 100 mg tablet 09-21 00:00: 00 10-02 05:59 :00 Yes [id number] 100mg Take 1 tablet by mouth in the morning and 1 tablet in the evening. Do all this for 10 days. [facility] abiraterone 250 mg tablet 09-17 00:00: 00 Yes [facility] metoprolol succinate XL 25 mg 24 hr tablet 2023-09 00:00: 00 Yes 25mg Take 1 tablet by mouth in the morning. [facility] predniSONE 5 mg tablet 2023-09 00:00: 00 Yes TAKE 1 TABLET BY MOUTH TWICE DAILY WITH FOOD DIRECTED. DO NOT TAKE AT BEDTIME. [facility] predniSONE 10 mg tablet 2023-09 00:00: 00 Yes TAKE 9 TABLET BY MOUTH EVERY DAY [facility] Eligard Eligard - 00:00: 00 No 22.5mg [facility] Bicalutamid e 50 MG Bicalutamid e 50 MG 6-06 00:00: 00 No 1{table t} QD Bicalutami de 50 MG Gentamicin 80mg Gentamicin 80mg 3-28 00:00: 00 No 240mg [facility] nirmatrelvi r-ritonavir (PAXLOVID) 300 mg (150 mg x 2)-100 mg tablet 10-06 00:00: 00 09-21 00:00 :00 No [id number] 3{tbl} Take 3 tablets by mouth in the morning and 3 tablets in the evening. [facility] foLIC acid 1 mg tablet 09-14 00:00: 00 Yes 1mg Take 1 tablet by mouth in the morning. [facility] levothyroxi ne 100 mcg tablet 09-14 00:00: 00 Yes 100ug Take 1 tablet by mouth every morning. [facility] bromphenira mine-pseudo ephedrine-D M (BROMFED DM) 2-30-10 mg/5 mL syrup 2019-09 00:00: 00 09-21 00:00 :00 No [id number] 5mL Take 5 mL by mouth 4 (four) times daily as needed for Congestion /Allergies . [facility] zolpidem 10 mg tablet 2019-09 00:00: 00 Yes TK 1 T PO HS [facility] Levothyroxi ne Sodium Levothyroxi ne Sodium No Levothyrox ine Sodium Tamsulosin HCl 0.4 MG Tamsulosin HCl 0.4 MG No 1{capsu le} BID Tamsulosin HCl 0.4 MG Immunizations Ordered Immunization Name Filled Immunization Name Date Status Comments Source SARS-COV-2 COVID-19 MODERNA 12+ YRS VACCINE 2020-11-14 00:00:00 Completed [facility] SARS-COV-2 COVID-19 MODERNA 12+ YRS VACCINE 2020-10-17 00:00:00 Completed [facility] SARS-COV-2 COVID-19 MODERNA 12+ YRS VACCINE Unknown Completed [facility] SARS-COV-2 COVID-19 MODERNA 12+ YRS VACCINE Unknown Completed [facility] SARS-COV-2 COVID-19 MODERNA 12+ YRS VACCINE Unknown Completed [facility] Vital Signs Vital Name Observation Time Observation Value Comments S rennyce Body weight 2024-09-21 18:36:00 103.165 kg [facility] BMI 2024-09-21 18:36:00 29.20 kg/m2 [facility] Oxygen saturation in Arterial blood by Pulse oximetry 2024-09-21 18:36:00 96 /min [facility] Systolic blood pressure 2024-09-21 18:36:00 149 mm[Hg] [facility] Diastolic blood pressure 2024-09-21 18:36:00 78 mm[Hg] Dieterich o [facility] Heart rate 2024-09-21 18:36:00 118 /min [facility] Body temperature 2024-09-21 18:36:00 36.83 Stephie [facility] Respiratory rate 2024-09-21 18:36:00 17 /min [facility] Body height 2024-09-21 18:36:00 188 cm [facility] height 2024-04-10 15:00:00 74 [in_i] Commo n [facility] weight 2024-04-10 15:00:00 218 [lb_av] Comm on [facility] temperature 2024-04-10 15:00:00 98 [degF] Comm on [facility] bmi 2024-04-10 15:00:00 27.99 kg/m2 Comm on [facility] oximetry 2024-04-10 15:00:00 99 % Commo n [facility] respiratory rate 2024-04-10 15:00:00 18 /min [facility] blood pressure systolic 2024-04-10 15:00:00 134 mm[Hg] Common [facility] blood pressure diastolic 2024-04-10 15:00:00 70 mm[Hg] Common [facility] height 2024-03-12 13:15:00 74 [in_i] Commo n [facility] weight 2024-03-12 13:15:00 218 [lb_av] Comm on [facility] temperature 2024-03-12 13:15:00 97.7 [degF] Com mon [facility] bmi 2024-03-12 13:15:00 27.99 kg/m2 Comm on [facility] oximetry 2024-03-12 13:15:00 99 % Commo n [facility] respiratory rate 2024-03-12 13:15:00 18 /min Common [facility] blood pressure systolic 2024-03-12 13:15:00 117 mm[Hg] [facility] blood pressure diastolic 2024-03-12 13:15:00 69 mm[Hg] [facility] height 2024-02-14 08:15:00 74 [in_i] Commo n [facility] weight 2024-02-14 08:15:00 215.0 [lb_av] Co mmon [facility] temperature 2024-02-14 08:15:00 98.7 [degF] Com mon [facility] bmi 2024-02-14 08:15:00 27.6 kg/m2 Commo n [facility] oximetry 2024-02-14 08:15:00 96 % Commo n [facility] respiratory rate 2024-02-14 08:15:00 18 /min [facility] blood pressure systolic 2024-02-14 08:15:00 117 mm[Hg] Common [facility] blood pressure diastolic 2024-02-14 08:15:00 64 mm[Hg] Common [facility] height 2023-12-13 16:15:00 74 [in_i] Commo n [facility] weight 2023-12-13 16:15:00 215 [lb_av] Comm on [facility] temperature 2023-12-13 16:15:00 97.7 [degF] Com mon [facility] bmi 2023-12-13 16:15:00 27.6 kg/m2 Commo n [facility] oximetry 2023-12-13 16:15:00 99 % Commo n [facility] respiratory rate 2023-12-13 16:15:00 18 /min Common [facility] blood pressure systolic 2023-12-13 16:15:00 140 mm[Hg] Common [facility] blood pressure diastolic 2023-12-13 16:15:00 67 mm[Hg] Common [facility] height 2023-12-06 09:15:00 74 [in_i] Commo n [facility] weight 2023-12-06 09:15:00 215 [lb_av] Comm on [facility] temperature 2023-12-06 09:15:00 98.3 [degF] Com mon [facility] bmi 2023-12-06 09:15:00 27.6 kg/m2 Commo n [facility] oximetry 2023-12-06 09:15:00 99 % Commo n [facility] respiratory rate 2023-12-06 09:15:00 18 /min Common [facility] blood pressure systolic 2023-12-06 09:15:00 132 mm[Hg] Common [facility] blood pressure diastolic 2023-12-06 09:15:00 68 mm[Hg] Common [facility] height 2023-11-09 10:00:00 74 [in_i] Commo n [facility] weight 2023-11-09 10:00:00 224.8 [lb_av] Co mmon [facility] temperature 2023-11-09 10:00:00 98.6 [degF] Com mon [facility] bmi 2023-11-09 10:00:00 28.86 kg/m2 Comm on [facility] oximetry 2023-11-09 10:00:00 96 % Commo n [facility] respiratory rate 2023-11-09 10:00:00 18 /min Common [facility] blood pressure systolic 2023-11-09 10:00:00 123 mm[Hg] Common [facility] blood pressure diastolic 2023-11-09 10:00:00 58 mm[Hg] Common [facility] Systolic blood pressure 2023-10-06 22:22:00 107 mm[Hg] [facility] Diastolic blood pressure 2023-10-06 22:22:00 64 mm[Hg] [facility] Heart rate 2023-10-06 22:22:00 111 /min [facility] Body temperature 2023-10-06 22:22:00 36.89 Stephie [facility] Respiratory rate 2023-10-06 22:22:00 17 /min [facility] Body height 2023-10-06 22:22:00 188 cm [facility] Body weight 2023-10-06 22:22:00 102.513 kg [facility] BMI 2023-10-06 22:22:00 29.02 kg/m2 [facility] Oxygen saturation in Arterial blood by Pulse oximetry 2023-10-06 22:22:00 95 /min [facility] height 2022-09-28 09:30:00 74 [in_i] Commo n [facility] weight 2022-09-28 09:30:00 224 [lb_av] Comm on [facility] temperature 2022-09-28 09:30:00 98.2 [degF] Com [facility] bmi 2022-09-28 09:30:00 28.76 kg/m2 Comm on [facility] oximetry 2022-09-28 09:30:00 96 % Commo n [facility] respiratory rate 2022-09-28 09:30:00 16 /min [facility] blood pressure systolic 2022-09-28 09:30:00 131 mm[Hg] Common [facility] blood pressure diastolic 2022-09-28 09:30:00 76 mm[Hg] Common [facility] height 2022-08-10 08:30:00 74 [in_i] Commo n [facility] weight 2022-08-10 08:30:00 218 [lb_av] Comm on [facility] temperature 2022-08-10 08:30:00 98.4 [degF] Com [facility] bmi 2022-08-10 08:30:00 27.99 kg/m2 Comm on [facility] oximetry 2022-08-10 08:30:00 97 % Commo n [facility] respiratory rate 2022-08-10 08:30:00 18 /min Common [facility] blood pressure systolic 2022-08-10 08:30:00 129 mm[Hg] [facility] blood pressure diastolic 2022-08-10 08:30:00 77 mm[Hg] [facility] Systolic blood pressure 2020-08-08 22:59:00 151 mm[Hg] [facility] Diastolic blood pressure 2020-08-08 22:59:00 85 mm[Hg] [facility] Heart rate 2020-08-08 22:58:00 112 /min [facility] Body temperature 2020-08-08 22:58:00 36.83 Stephie [facility] Respiratory rate 2020-08-08 22:58:00 18 /min [facility] Body height 2020-08-08 22:58:00 188 cm [facility] Body weight 2020-08-08 22:58:00 97.523 kg [facility] BMI 2020-08-08 22:58:00 27.60 kg/m2 [facility] Oxygen saturation in Arterial blood by Pulse oximetry 2020-08-08 22:58:00 98 /min [facility] Procedures Procedure Date / Time Performed Performing Clinicia n Source POCT MOLECULAR FLU 2024-09-21 18:43:00 Unknown, Attend ing [facility] POCT MOLECULAR STREP 2024-09-21 18:40:00 Unknown, Atte nding [facility] POCT SARS-COV-2 ANTIGEN (BINAX NOW) 2024-09-21 18:37:00 Estrellita Whitfield [facility] PVR 2024-04-10 00:00:00 Common S pirit [facility] [id number] 2023-11-21 00:00:00 RASSA [facility] [id number] 2023-11-21 00:00:00 CHAAB.01 [facility] [id number] 2023-11-21 00:00:00 CHAAB.01 [facility] [id number] 2023-11-21 00:00:00 CHAAB.01 [facility] [id number] 2023-11-21 00:00:00 CHAAB.01 [facility] POCT SARS-COV-2 ANTIGEN (BINAX NOW) 2023-10-06 22:24:00 Sushant Gary [facility] ASSIGNMENT OF BENEFITS 2023-10-06 22:14:36 Docto r Unassigned, Remer [facility] Encounters Start Date/Time End Date/Time Encounter Type Admission Type Attending Clinicians Care Facility Care Department Encounter ID Source 2023-11-01 09:10:01 [id number] 2022-08-24 09:41:04 Outpatient Saúl Damon [facility] [id number] [facility] 2022-08-10 08:15:06 Outpatient Saúl Damon [facility] [id number] [facility] 2024-09-21 12:40:00 2024-09-21 13:00:00 Urgent Care Estrellita Whitfield Unknown, Attending [facility] [id number] [id number] [id number] [facility] 2024-09-21 12:40:00 2024-09-21 12:40:00 Outpatient ESTRELLITA MORGAN [facility] [id number] [facility] 2024-06-04 00:00:00 2024-06-04 00:00:00 (TEL) [facility] [id number] [facility] 2024-04-10 00:00:00 2024-04-10 00:00:00 OFFICE VISIT ESTAB PT LEVEL 4 [facility] [id number] [facility] 2024-03-12 00:00:00 2024-03-12 00:00:00 OFFICE VISIT ESTAB PT LEVEL 5 [facility] [id number] [facility] 2024-02-14 00:00:00 2024-02-14 00:00:00 OFFICE VISIT ESTAB PT LEVEL 5 [facility] [id number] [facility] 2023-12-13 00:00:00 2023-12-13 00:00:00 OFFICE VISIT ESTAB PT LEVEL 5 [facility] STL[facility] [id number] [facility] 2023-12-13 00:00:00 2023-12-13 00:00:00 (TEL) [facility]LMLC STL[facility]C [id number] [facility] 2023-12-06 00:00:00 2023-12-06 00:00:00 (PROC) Procedure STLMLC [facility]C [id number] [facility] 2023-11-21 10:14:00 2023-11-22 14:47:00 Inpatient Chidi Thomson [facility] INTE [id number] [facility] 2023-11-19 00:00:00 2023-11-19 00:00:00 (TEL) STLMLC STLMLC [id number] [facility] 2023-11-14 10:54:00 2023-11-16 13:22:00 Inpatient BISHOP LaresKianao [facility] INTE.02 [id number] [facility] 2023-11-09 00:00:00 2023-11-09 00:00:00 OFFICE VISIT ESTAB PT LEVEL 4 [facility] STL[facility]C [id number] [facility] 2023-10-16 00:00:00 2023-10-16 00:00:00 Nurse Triage Sunil Ibarra [facility] [id number] [id number] [id number] [facility] 2023-10-06 16:20:00 2023-10-06 16:40:00 Urgent Care Sushant Gary Unknown, Attending [facility]ICO[facility] [id number] [id number] [id number] [id number] [facility] 2023-10-06 16:20:00 2023-10-06 16:20:00 Outpatient R SUSHANT GARY [facility] [id number] [facility] 2023-10-06 00:00:00 2023-10-06 00:00:00 Orders Only Doctor Unassigned, Remer [facility] [id number] 350.1.13.10 4.2.7.2.686 [id number] [facility] 2023-09-12 09:17:00 2023-09-12 09:17:00 Outpatient Dl Meraz [facility] [id number] [facility] 2023-07-25 08:09:00 2023-07-25 08:09:00 Outpatient Dl Meraz [facility] [id number] [facility] 2022-09-28 00:00:00 2022-09-28 00:00:00 OFFICE VISIT EST PT LEVEL 3 [facility] STL[facility]C [id number] [facility] 2022-09-01 00:00:00 2022-09-01 00:00:00 (TEL) STLMLC ST[facility]C [id number] [facility] 2022-08-10 00:00:00 2022-08-10 00:00:00 OFFICE VISIT NEW PT LEVEL 4 STLMLC STLMLC [id number] [facility] 2020-11-14 10:40:00 2020-11-14 10:40:00 Outpatient [facility] [id number] [facility] 2020-10-17 10:50:00 2020-10-17 10:50:00 Outpatient [facility] [id number] [facility] 2020-08-08 16:49:50 2020-08-08 17:48:57 Urgent Care Provider, [facility] 1..840.114 350.1.13.10 [id number] [id number] [facility] 2020-08-08 17:00:00 2020-08-08 17:00:00 Outpatient R CALI [facility] [id number] [facility] 2020-08-08 00:00:00 2020-08-08 00:00:00 Letter (Out) Doctor Unassigned, Remer [facility] 1..840.114 350.1.13.10 [id number] [id number] [facility] Results Test Description Test Time Test Comments Results Result Co mments Source [facility] SARS-COV-2 ANTIGEN (BINAX NOW)2024-09-21 18:52:00* Test Item Value Reference Range Interpretation Comme [facility] POCT SARS-COV-2 ANTIGEN (test code = 45532-9) Not Detected Not Detected, See Comment On board controls acceptable with C Line (test code = 3574) Yes Lab Interpretation (test code = 59373-5) Normal [facility] MOLECULAR [id number] 18:48:10* Test Item Value Reference Range Interpretation Comme [facility] POCT Molecular Strep (test c ode = 34970-8) Negative Negative Lab Interpretation (test cod e = 08049-3) Normal [facility] [id number] 00:00:00* Test Item Value Reference Range Interpretation [...] = 2085-9) 67 mg/dL See_Comment N [Automated Umeng] The system which generated this result transmitted reference range: > OR = 40 mg/dL. The reference range was not used to interpret this result as normal/abnormal. LDL-CHOLESTEROL (test code = 08856-5) 126 mg/dL (calc) H NON HDL CHOLESTEROL (test code = 07315-4) 143 mg/dL (calc) See_Comment H [Automated message] The system which generated this result transmitted reference range: <130 mg/dL (calc). The reference range was not used to interpret this result as normal/abnormal. TRIGLYCERIDES (test code = 2571-8) 78 mg/dL See_Comment N [Automated Umeng] The system which generated this result transmitted reference range: <150 mg/dL. The reference range was not used to interpret this result as normal/abnormal. BASIC METABOLIC [id number] 06:01:00* Test Item Value Reference Range Interpretation [...] CA) 8.3 mg/dL 8.0-10.5 N CBC W/AUTO [id number] 05:40:00* Test Item Value Reference Range Interpretation [...] 0.00 x10 3/uL 0.0-0.1 N COAGULATION TIME [id number] 10:08:00* Test Item Value Reference Range Interpretation Comme nts COAGULATION TIME ACTIVATED (test code = ACT) 307 SECONDS Performed by certified coke crane operator at [facility] COAGULATION TIME [id number] 09:49:00* Test Item Value Reference Range Interpretation Comme nts COAGULATION TIME ACTIVATED (test code = ACT) 347 SECONDS Performed by certified coke crane operator at [facility] CBC W/AUTO [id number] 07:23:00* Test Item Value Reference Range Interpretation [...] NRBC#) 0.00 x10 3/uL 0.0-0.1 N RBC [id number] 07:23:00* Test Item Value Reference Range Interpretation Comme nts ANISOCYTOSIS (test code = ANISO) 1+ POLYCHROMASIA (test code = POLC) 1+ MACROCYTOSIS (test code = MACR) 3+ PLT [id number] 07:23:00* Test Item Value Reference Range Interpretation Comme nts PLATELET ESTIMATE (test code = PLTEST) 28-35 THOUSAND ADEQUATE PLATELET MORPHOLOGY (test code = PLTMORPH) LARGE PLATELETS B-TYPE NATRIURETIC [id number] 06:35:00* Test Item Value Reference Range Interpretation Comme nts B-TYPE NATRIURETIC PEPTIDE ( test code = BNP) 394.0 PG/ML 0-100 H BASIC METABOLIC [id number] 06:34:00* Test Item Value Reference Range Interpretation [...] code = CA) 8.9 mg/dL 8.0-10.5 N [id number] 06:34:00* Test Item Value Reference Range Interpretation Comme nts ALBUMIN (test code = ALB) 3.30 g/dL 3.4-5.0 L COVID 19 Asymptomatic IH [id number] 06:27:00* Test Item Value Reference Range Interpretation [...] perform moderate, high or waivedcomplexity tests. PROTHROMBIN [id number] 06:11:00* Test Item Value Reference Range Interpretation [...] Acute Myocardial Infarction (to prevent recurrent infarct). [id number] 16:09:00* Test Item Value Reference Range Interpretation Comme nts COPPER (test code = EMPLOYMENT PROGRAM REPRESENTATIVE) 105 ug/dL 69-132 Detection Limit = 5Performed At: [facility] [place], [place] [id number] Jennifer R MD Ph:[phone] BASIC METABOLIC [id number] 04:07:00* Test Item Value Reference Range Interpretation [...] code = CA) 8.4 mg/dL 8.0-10.5 N [id number] 04:07:00* Test Item Value Reference Range Interpretation Comme nts MAGNESIUM (test code = MAG) 1.79 mg/dL 1.6-2.6 N CBC W/AUTO [id number] 03:47:00* Test Item Value Reference Range Interpretation [...] x10 3/uL 0.0-0.1 N AG HEPATITIS B [id number] 04:37:00* Test Item Value Reference Range Interpretation Comme nts AG HEPATITIS B SURFACE (test code = HBSAG) NON REACTIVE INDEX NonReactive AB HEPATITIS [id number] 04:37:00* Test Item Value Reference Range Interpretation Comme nts AB HEPATITIS C (test code = HCVAB) NON REACTIVE INDEX NON REACT. AB HIV 1 04:37:00* Test Item Value Reference Range Interpretation Comme nts AB HIV 1 2 (test code = RVG81QN) Nonreactive Nonreactive VITAMIN [id number] 04:02:00* Test Item Value Reference Range Interpretation Comme nts VITAMIN B12 (test code = VITB12) 1144 pg/mL 193-986 H FOLIC [id number] 04:02:00* Test Item Value Reference Range Interpretation Comme nts FOLIC ACID (test code = FOL) 19.5 ng/mL 3.1-17.5 H BASIC METABOLIC [id number] 03:54:00* Test Item Value Reference Range Interpretation [...] code = CA) 9.7 mg/dL 8.0-10.5 N [id number] 03:54:00* Test Item Value Reference Range Interpretation Comme nts MAGNESIUM (test code = MAG) 1.61 mg/dL 1.6-2.6 N CBC W/AUTO [id number] 03:40:00* Test Item Value Reference Range Interpretation [...] 0.00 x10 3/uL 0.0-0.1 N CBC W/MANUAL [id number] 11:32:00* Test Item Value Reference Range Interpretation [...] (test code = MACR) 2+ CBC W/AUTO [id number] 09:55:00* Test Item Value Reference Range Interpretation [...] NRBC#) 0.00 x10 3/uL 0.0-0.1 N PLT [id number] 09:55:00* Test Item Value Reference Range Interpretation Comme nts PLATELET ESTIMATE (test code = PLTEST) 32-40 THOUSAND ADEQUATE BASIC METABOLIC [id number] 09:17:00* Test Item Value Reference Range Interpretation [...] = CA) 9.5 mg/dL 8.0-10.5 N PROTHROMBIN [id number] 09:11:00* Test Item Value Reference Range Interpretation [...] POCT SARS-COV-2 ANTIGEN (sean t code = 00966-9) Positive Not Detected A On board controls acceptable with C Line (test code = 3574) Yes Lab Interpretation (test cod e = 35752-4) Abnormal [facility]- CTA ABD PEL W [id number] 00:00:00 [facility] : 1955 Sex: M Name: DAWOOD VILLANUEVA [facility] : 1955 Age/S: 68 / M [address] [place] [address] Blvd Unit #: [id number] Loc: [place] [address] Phys: Dl Tong MD Acct: [id number] Dis Date: Status: DEP CLI PHONE #: [phone] Exam Date: 09/12/2023 1059 FAX #: [phone] Reason: AORTIC STENOSIS EXAMS: CPTCODE: [id number] CTA ABD PEL W CONT 83706 Radiation Dose CTDIVOL = 104.92 (mGy): DLP [...] prior studies available. RADIATION DOSE METRICS: CTDI volume(mGy): 104.92 Total DLP (mGy-cm): 1542.09 FINDINGS: PHASE [...] mm PAGE 1 Signed Report (CONTINUED) Name: DAWOOD VILLANUEVA [facility] : 1955 Age/S: 68 / M [address] [place] [address] Blvd Unit #: [id number] Loc: [place] [address] Phys: Dl Tong MD Acct: [id number] Dis Date: Status: DEP CLI PHONE #: [phone] Exam Date: 09/12/2023 1057 FAX #: [phone] Reason: AORTIC STENOSIS EXAMS: CPT CODE: [id number] CTA ABD PEL W CONT 18523 (Continued) Sinus of Valsalva (left): 38 mm [...] annular area: 631 mm2 High risk aortic rootfeatures: None. Severe burden of calcified coronary plaque. [...] VASCULATURE: PAGE 2 Signed Report (CONTINUED) Name: DAWOOD VILLANUEVA [facility] : 1955 Age/S: 68 / M [address] [place] [address] Blvd Unit #: [id number] Loc: [place] [address] Phys: Dl Tong MD Acct: [id number] Dis Date: Status: DEP CLI PHONE #: [phone] Exam Date: 09/12/2023 1059 FAX #: [phone] Reason: AORTIC STENOSIS EXAMS: CPT CODE: [id number] CTA ABD PEL W CONT 10830 (Continued) Aorta: No aortic aneurysm. No aortic [...] ducts: Unremarkable. No calcified stones. No ductal d ilation. Pancreas: Unremarkable. No mass. No ductal dilation. [...] M.D. PAGE 3 Signed Report (CONTINUED) Name: DAWOOD VILLANUEVA [facility] : 1955 Age/S: 68 / M [address] [place] [address] Bl Unit #: [id number] Loc: [place] [address] Phys: Dl Tong MD Acct: [id number] Dis Date: Status: DEP CLI PHONE #: [phone] Exam Date: 09/12/2023 1053 FAX #: [phone] Reason: AORTIC STENOSIS EXAMS: CPT CODE: [id number] CTAABD PEL W CONT 49596 (Continued) CC: Saúl Damon MD; Dl Tong MD Technologist:Russel valentine RT(R)(CT) CTDI: DLP: Trnscb Date/Time: 09/13/2023 (441) [email or web address] Orig Print D/T: S: 09/13/2023 (0443) PAGE 4 Signed Report- CT ANGIO [id number] 00:00:00[facility] JULY LEIGHName: DAWOOD VILLANUEVA : 1955 Sex: M Name: DAWOOD VILLANUEVA [facility] July Leigh : 1955 Age/S: 68 / M [address] [place] [address] Blvd Unit #: [id number] Loc: [place] [address] Phys: Dl Tong MD Acct: [id number] Dis Date: Status: DEP CLI PHONE#: [phone] Exam Date: 09/12/2023 1059 FAX #: [phone] Reason: AORTIC STENOSIS EXAMS: CPT CODE: [id number] CT ANGIO CHEST 40837 Radiation Dose CTDIVOL = 104.92 (mGy): DLP [...] contrast administration, ECG gated CTA was performed. 3Drendering (Not supervised by radiologist): MIP and/or 3D [...] 33 mm Min diameter: 25 mm Annular/Subannular calcification:Mild burden Mitral annular calcification: Mild burden Height of left main above annular plane: 16 mm Height of RCA above annular plane: [address] ridge above annular plane: 29 mm PAGE 1 Signed Report (CONTINUED) Name: DAWOOD VILLANUEVA [facility] [place] : 1955 Age/S: 68 / M [address] [place] [address] Blvd Unit #: [id number] Loc: [place] [address] Phys: Dl Tong MD Acct: [id number] Dis Date: Status: DEP CLI PHONE #: [phone] Exam Date: 09/12/2023 1059 FAX #: [phone] Reason: AORTIC STENOSIS EXAMS: CPT CODE: [id number] CT ANGIO CHEST 73597 (Continued) Sinus of Valsalva (left): 38 mm [...] area: 631 mm2 High risk aortic root features:None. Severe burden of calcified coronary plaque. PROCEDURE [...] Contrast route: INTRAVENOUS (IV); COMPARISON: No relevant priorstudies available. RADIATION DOSE METRICS: CTDI volume (mGy): 104.92 Total DLP (mGy-cm): 1542.09 FINDINGS: VASCULATURE: PAGE 2 Signed Report (CONTINUED) Name: DAWOOD VILLANUEVA [facility] July Leigh : 1955 Age/S: 68 / M [address] [place] [address] Blvd Unit #: [id number] Loc: [place] [address] Phys: Kevin Tong MD Acct: [id number] Dis Date: Status: DEP CLI PHONE #: [phone] Exam Date: 09/12/2023 1059 FAX #: [phone] Reason: AORTIC STENOSIS EXAMS: CPT CODE: [id number] CT ANGIO CHEST 54982 (Continued) Aorta: No aortic aneurysm. No aortic [...] obstruction. No mucosal thickening. Intraperitoneal space: No freeair. No significant fluid collection. Urinary bladder: Unremarkable. No mass. Reproductive: Unremarkable as visualized. Lymph nodes: Unremarkable. No enlarged lymph nodes. Bones/joints: There are moderate multilevel forb degenerative changes of the thoracic spine. No acute fracture. Soft tissues: Unremarkable. IMPRESSION: Patent bilateral iliofemoral arteries without significant stenosis. at 0442 Reported and signed by : Fady Velazquez M.D. PAGE 3 Signed Report (CONTINUED) Name: DAWOOD VILLANUEVA [facility] : 1955 Age/S: 68 / M [address] [place], [place] [address]vd Unit #: [id number] Loc: [place] [address] Phys: Dl Tong MD Acct: [id number] Dis Date: Status: DEP CLI PHONE #: [phone] Exam Date: 09/12/2023 1059 FAX #: [phone] Reason: AORTIC STENOSIS EXAMS: CPT CODE: [id number] CT ANGIO CHEST 09559 (Continued) CC: Saúl Damon MD; Dl Tong MD Technologist:Russel Gaxiola Jr, RT(R)(CT) CTDI:DLP: Trnscb Date/Time: 09/13/2023 (441) [email or web address].[email or web address] Orig Print D/T: S: 09/13/2023 (441) PAGE 4 Signed Report- CTA HEART W CN ART/[id number] 00:00:00 [facility] JULY LEIGHName: DAWOOD VILLANUEVA : 1955 Sex: M Name: DAWOOD VILLANUEVA [facility] [place] : 1955 Age/S: 68 / M [address] [place] [address] Unit #: [id number] Loc: [place] [address] Phys: Dl Tong MD Acct: [id number] Dis Date: Status: DEP CLI PHONE #: [phone] Exam Date: 09/12/2023 105 FAX #: [phone] Reason: EXAMS: CPT CODE: [id number] HEART W CN ART/GRAFTS 29282 Radiation Dose CTDIVOL = 104.92 (mGy): DLP = 1542.09 (mGy-cm) PROCEDURE INFORMATION: Exam: CTA Heart And Coronary Arteries With Contrast Exam date and time: 0:11 AM Age: 68 years old Clinical indication: Other: Aortic stenosis TECHNIQUE: Imaging protocol:CT angiography of the heart, coronary arteries, and [...] mm PAGE 1 Signed Report (CONTINUED) Name: DAWOOD VILLANUEVA [facility] : 1955 Age/S: 68 / M [address] [place] [address] Unit #: [id number] Loc: [place] [address] Phys: Dl Tong MD Acct: [id number] Dis Date: Status: DEP CLI PHONE #: [phone] Exam Date: 09/12/2023 1059 FAX #: [phone] Reason: EXAMS: CPT CODE: [id number] CTA HEART W CN ART/GRAFTS 54591 (Continued) Sinus of Valsalva (left): 38 mm [...] burden of calcified coronary plaque. PROCEDURE INFORMATION: Exam:CTA Chest With Contrast CTA Abdomen and Pelvis With Contrast Exam date and time: 09/12/2023 10:11 AMAge: 68 years old Clinical indication: Other: Aortic stenosis TECHNIQUE: Imaging protocol: Computedtomographic angiography of the chest with contrast. Exam [...] VASCULATURE: PAGE 2 Signed Report (CONTINUED) Name: DAWOOD VILLANUEVA [facility] : 1955 Age/S: 68 / M [address] [place], [place] [address] Unit #: [id number] Loc: [place] [address] Phys: Dl Tong MD Acct: [id number] Dis Date: Status: DEP CLI PHONE #: [phone] Exam Date: 09/12/2023 1059 FAX #: [phone] Reason: EXAMS: CPT CODE: [id number] CTA HEART W CN ART/GRAFTS 08658 (Continued) Aorta: No aortic aneurysm. No aortic [...] No calcified stones. No ductal dilation. Pancreas: Unre markable. No mass. No ductal dilation. Spleen: Unremarkable. [...] M.D. PAGE 3 Signed Report (CONTINUED) Name: DAWOOD VILLANUEVA [facility] : 4Age/S: 68 / M [address] [place] [address] Unit #: [id number] Loc: [place] [address] Phys: Ajit Tong Acct: [id number] Dis Date: Status: DEP CLI PHONE #: [phone] Exam Date: 09/12/2023 1059 FAX #: [phone] Reason: EXAMS: CPT CODE: [id number] CTA HEART W CN ART/GRAFTS 57529 (Continued) CC: Saúl Damon MD; Dl Tong MD Technologist:Russel Gaxiola Jr, RT(R)(CT) CTDI: DLP: Trnscb Date/Time: 09/13/2023 (044) [email or web address] Orig Print D/T: S: 09/13/2023 (0443) PAGE 4 Signed ReportCOVID 19 Asymptomatic IH AG 2023-09-12 12:07:00* Test Item Value Reference Range Interpretation [...] high or waivedcomplexity tests. CREATININE W ESTIMATED [id number] 10:09:00* Test Item Value Reference Range Interpretation Comme nts BEDSIDE CREATININE (test code = CREATBED) 0.9 MG/DL 0.6-1.3 N Performed by cer [facility] GLOMERULAR FILTRATION RATE POC (test code = GFRBED) 92 ML/MIN Per[facility] b [facility] Rate is a calculated parameterbased [...] <18 years.Previously reported result: 92 ML/MINEdited by: INFCE on 09/12/23:065853 1009: GFRBED previously reported as: 92 ML/MIN Notes Date/Time Note Provider Source 2023-11-22 13:19:00 [facility] ([facility]) DT Operative Note REPORT#:[id number] REPORT STATUS: Signed REPORT INITIALIZATION DATE:11/22/23 TIME: 1318 PATIENT: CHRIS VILLANUEVA UNIT #: [id number] ROOM/BED: [place] [address] : [birth year] AGE: 68 SEX: M ATTEND: Chidi Garcia MD ADM AUTHOR: Jesús Casas MD REPT SERVICE DT/TIME: 11/21/231318 * ALL edits or amendments must be made on the electronic/computer document * Operative Report Operative Note Note: Pre-procedure diagnosis: Severe symptomatic aortic stenosis Post-procedure diagnosis: Severe symptomatic aortic stenosis Procedures performed: 1. Transcatheter aortic valve replacement using Silveira 29 mm valve 2. Ascending aortogram 3. Distal aortogram 4. Transvenous temporary pacemaker insertion 5. Manta closure device into the right common femoral artery Primary communications field technician: MD Dl Majano MD CT surgeon: Anneliese Garcia MD Anesthesia: monitored anesthesia care. Indications: Severe symptomatic aortic stenosis. Technique/Procedure: After informed consent was obtained patient was brought into the [facility] patient was prepped and draped in sterile fashion. Left common femoral artery was accessed ultrasound guided and using micropuncture technique under fluoroscopy guidance and a 5 Luxembourger sheath was inserted. The right common femoral vein was accessed using micropuncture technique and then an 8 Luxembourger long sheath was inserted. The right common femoral artery was visualized by ultrasound and accessed using micropuncture technique under fluoroscopy guidance a micropuncture technique then a 6 Luxembourger sheath was inserted then we used Manta depth automatic lathe operator for closure then we placed a 16 Luxembourger Silveira E sheath. Then we went with 5 Luxembourger marked pigtail from the left common femoral artery we placed it in the noncoronary cusp. Then we went up with temporary pacer and we placed it in the right ventricle against the septum. Then we went through the E sheath with exchange length J-wire over AL-1 catheter and I crossed the aortic valve with straight tip wire and then I exchanged the AL-1 catheter into a pigtail over a J-wire. Then I performed simultaneous pressure and measured gradient between the LV and aortic root mean gradient. Then I went with extra-stiff Amplatz wire with a curved tip that manually was done and placed it in the left ventricle apex. Then I went up with the Silveira 26 mm valve and we placed it across the aortic valve. I performed aortogram and the ascending aorta and showed good position of the TAVR valve. Then with rapid pacing at 200 bpm deployed the TAVR valve 29 mm at nominal pressure. Then the valve delivery system was removed. And we performed ascending aortogram utilizing the marker pigtail and showed no perivalvular leak. An echocardiogram was done at the bedside showed small effusion no change from prior valve deployment, minimal gradient and no perivalvular leak. Then I went up with a pigtail over a J-wire across the TAVR valve and placed it in the left ventricle and post TAVR deployment mean gradient was minimal. When I removed the pigtail out of the body and removed the E sheath manual pressure applied and then we deployed Manta closure device in the right common femoral artery with good hemostasis. Then we pulled back the marked pigtail into the distal abdominal aorta and we performed angiogram and showed good hemostasis achievement in the right common femoral artery. Then the temporary pacer was removed the marked pigtail was removed. The left common femoral artery was closed with Mynx closure device. The right common femoral vein sheath was pulled and replaced [id number]. Patient tolerated procedure well there was no complication Operative findings: Severe aortic stenosis. Estimated blood loss in ml's: 30 ml Specimens removed/altered: none Implant(s): Silveira 29 mm Valve Disposition: PACU at 0724 RPT #:[id number] END OF REPORT [facility] 2023-11-22 13:03:00 8627-[address] [address] PATIENT NAME: CHRIS VILLANUEVA ADMIT DATE: 11/21/23 ACCOUNT NO: [id number] ROOM NO: 3303 AGE: 68 REPORT TYPE: eECHOCARDIOGRAM REPORT SEX: M ADMITTING PHYSICIAN:Chidi Garcia MD ATTENDING PHYSICIAN:Chidi Garcia MD *[address] [address] Transthoracic Echocardiogram Patient: Chris Villanueva Study Date: 11/22/2023 BP: 105 / 47 URN: [id number] Location: : 1955 Age: 68 Gender: M Height: 73 in / 185.4 cm Weight: 208 lb / 94.4 kg BMI/BSA: 27.4 kg/m 2 / 2.22 m 2 *Ordering Physician: * Toño David NP *Interpreting Physician: * Jesús Casas MD *Equities Analyst: * Ashley Loera Indications: POST TAVR. Study data: Transthoracic echocardiogram. Procedure: A transthoracic echocardiogram was performed. Image quality was adequate. Complete 2D, complete spectral Doppler, and color Doppler. Location: CCU Patient status: Inpatient. Patient room number: 3303. Study status: Routine. Heart rate: 93 bpm. Rhythm: Normal sinus rhythm. Findings Left ventricle: The cavity size is normal. Wall thickness is mildly increased. Systolic function is at the lower limits of normal. The estimated ejection fraction is 50-54%. Wall motion is normal; there are no regional wall motion abnormalities. Grade I diastolic dysfunction. PATIENT NAME: CHRIS VILLANUEVA Right ventricle: The cavity size is normal. Systolic function is normal. Left atrium: The atrium is normal in size. Right atrium: The atrium is normal in size. Aorta: A single aortic arch is present. Brachiocephalic branching is normal. The right innominate artery is the first aortic branch. Aorta: The aorta is normal and normal-sized. There is no evidence of disease. Aortic valve: A bioprosthetic valve is present. There is no evidence of stenosis. There is no regurgitation. Post TAVR: There is a IKE XT, 29 mm transcatheter valve that is well seated in the aortic valve position. The LVOT diameter is 29 cm. The peak aortic gradient is 10.7 mmHg. The mean aortic gradient is 6 mmHg. The LVOT VTI is 11.3 cm. The AV VTI is 30.1 cm. The aortic valve area is 2.4 cm 2. The peak jet velocity is 1.4 m/sec. There is no perivalular leak. Mitral valve: The valve is structurally normal. There is no evidence of stenosis. There is trivial regurgitation. Tricuspid valve: Estimated right venticular systolic pressure is 26 mmHg. The valve is structurally normal. There is no evidence of stenosis. There is mild regurgitation. Pulmonic valve: The valve is structurally normal. There is no evidence of stenosis. There is no regurgitation. Pericardium: There is no pericardial effusion. Systemic veins: Inferior vena cava: The IVC is mildly dilated measuring up to 2.1 cm. Respirophasic diameter changes are in the normal range (>= 50%). Measurements Left ventricle Value Ref GLS, 2D -17 % --------- EDDA, LAX 5.8 cm 4.2 - 5.8 ESD, LAX 3.9 cm 2.5 - 4.0 FS, LAX 33 % 25 - 43 EDDA major ax, A2C 7.7 cm --------- ESD major ax, A2C 6.6 cm --------- IVS, ED 1.1 cm 0.6 - 1.0 PW, ED 1.0 cm 0.6 - 1.0 IVS/PW, ED 1.08 --------- EF 60 % 52 - 72 E', lat bia, TDI 9.7 cm/sec >=10.0 E/e', lat bia, TDI 10 <=13 LVOT Value Ref Diam, S 2.86 cm --------- Area 6.4 cm 2 --------- Peak bacilio, S 0.56 m/sec --------- Mean bacilio, S 0.47 m/sec --------- VTI, S 11.3 cm --------- Peak grad, S 1 mm Hg --------- Mean grad, S 1 mm Hg --------- SV 72 ml --------- Qs 6.53 L/min --------- Qs/bsa 2.9 L/(min-m 2) --------- SV/bsa 32 ml/m 2 --------- PATIENT NAME: CHRIS VILLANUEVA Right ventricle Value Ref EDDA, LAX 2.9 cm --------- TAPSE, MM 3.0 cm >=1.7 S' lateral 18.1 cm/sec >=9.5 RVOT Value Ref Peak v, S 0.88 m/sec --------- Peak grad, S 3 mm Hg --------- Left atrium Value Ref AP dim, ES 4.0 cm 3.0 - 4.0 Vol/bsa, S 24 ml/m 2 16 - 34 Vol/bsa, ES, 1-p A4C 26 ml/m 2 12 - 37 Vol, ES, 2-p 53 ml --------- Vol/bsa, ES, 2-p 24 ml/m 2 16 - 34 Vol/bsa, ES, A/L 28 ml/m 2 16 - 34 AP dim, ES MM 4.2 cm 3.0 - 4.0 LA/Ao root ratio, MM 1.72 --------- Right atrium Value Ref Area, ES 14 cm 2 10 - 18 SI dim, ES, A4C 4.8 cm 3.4 - 5.3 Vol, ES, A/L 33 ml --------- Vol, ES, 1-p A4C 31 ml --------- Vol/bsa, ES, 1-p A4C 14 ml/m 2 11 - 39 Aortic valve Value Ref Leaflet sep, MM 1.40 cm --------- Peak v, S 1.6 m/sec --------- Mean v, S 1.23 m/sec --------- VTI, S 30.1 cm --------- Mean grad, S 6 mm Hg --------- Peak grad, S 10.7 mm Hg --------- LVOT/AV, VTI ratio 0.37 --------- ANGELA, VTI 2.39 cm 2 --------- LVOT/AV, Vpeak ratio 0.34 --------- ANGELA, Vmax 2.20 cm 2 --------- Mitral valve Value Ref Mean v, D 1.12 m/sec --------- Peak E 0.95 m/sec --------- Peak A 1.39 m/sec --------- VTI leaflet coapt 31.0 cm --------- MiV/LVOT VTI 2.8 --------- Decel time 131 ms --------- PHT 60 ms --------- Mean grad, D 5 mm Hg --------- Peak grad, D 8.8 mm Hg --------- Peak E/A ratio 0.69 --------- MVA, PHT 3.7 cm 2 --------- Tricuspid valve Value Ref TR peak v 2.4 m/sec <=2.8 PATIENT NAME: CHRIS VILLANUEVA P Peak RV-RA grad, S 23 mm Hg --------- Aortic root Value Ref Root diam, ED MM 2.4 cm --------- Conclusions Summary: 1. Left ventricle: The cavity size is normal. Wall thickness is mildly increased. Systolic function is at the lower limits of normal. The estimated ejection fraction is 50-54%. Wall motion is normal; there are no regional wall motion abnormalities. Grade I diastolic dysfunction. 2. Aortic valve: A bioprosthetic valve is present. There is a IKE XT, 29 mm transcatheter valve that is well seated in the aortic valve position. The LVOT diameter is 29 cm. The peak aortic gradient is 10.7 mmHg. The mean aortic gradient is 6 mmHg. The aortic valve area is 2.4 cm 2. The peak jet velocity is 1.4 m/sec. There is no perivalular leak. Electronically signed by Jesús Casas MD 11/22/2023 13:03 at 1303 PATIENT NAME: CHRIS VILLANUEVA [facility] 2023-11-22 11:13:00 [facility] ([facility]) Discharge Summary REPORT#:[id number] REPORT STATUS: Signed REPORT INITIALIZATION DATE:11/22/23 TIME: 1113 PATIENT: CHRIS VILLANUEVA UNIT #: [id number] ROOM/BED: [place] [address] : [birth year] AGE: 68 SEX: M ATTEND: Chidi Garcia MD ADM AUTHOR: Vazquez Horton COMPLIANCE COORDINATOR REPT SERVICE DT/TIME: 11/22/23 1113 * ALL edits or amendments must be made on the electronic/computer document * Vazquez Horton. 11/22/23 1113: PCP PCP Pending result: bilateral groin ultrasound Discharge to: home Blood transfusions: Transfusion(s): Prior to procedure, platelets General Information Free Text A P: 1. Severe Symptomatic Aortic Stenosis S/p TAVR 29 mm Silveira Ike valve, successful implant. Patient on aspirin as discussed with Cardiology. Hematology has evaluated the patient in the past. Patient monitored overnight, telemetry reviewed showed sinus rhythm with PVCs. Groin sites CDI, sinus rhythm no bleeding noted. Labs and vital signs reviewed. Cardiology reviewed echocardiogram and OK for discharge. F/u in clinic with Cardiology and we will follow with Structural Heart team. 2. Thrombocytopenia Patient with hx of chronic thrombocytopenia platelets in the 30,000 range. Labs reviewed and at baseline level. No evidence of active bleeding, but patient did receive platelet transfusion prior to procedure. Patient to discharge on aspirin only and follow up with Dr. Tong as an outpatient. Date of admission: Observation Start Date: Date of admission: 11/21/23 Discharge date: 11/22/23 Discharge diagnosis: Severe symptomatic aortic stenosis Hospital course: This is a 68year old male with a past medical history of severe symptomatic aortic stenosis that presented for elective transcatheter aortic valve replacement and underwent successful implant of a 29 mm Silveira Ike valve. The patient does have history of thrombocytopenia and underwent platelet transfusion prior to procedure. The patient was monitored overnight and did well. The labs and vital signs reviewed bilateral groins CDI without bleeding or hematoma. Med Rec PCP PCP: PCP: Saúl Damon MD Med Rec Discharge meds: Continue taking these medications: FOLIC ACID (FOLIC ACID) 1 MG TAB 1 MILLIGRAM ORAL DAILY. ZOLPIDEM (AMBIEN) 10 MG TAB 10 MILLIGRAM ORAL BEDTIME. LEVOTHYROXINE (SYNTHROID) 100 MCG TAB 100 MICROGRAM ORAL DAILY. Start taking the following new medications: ASPIRIN (ASPIRIN) 81 MG TAB.CHEW 81 MILLIGRAM ORAL DAILY. Qty = 30 Refills = 3 Objective VS/I O Last Documented: Result Date Time B/P 112/57 11/21 1123 B/P Mean 78 11/21 1123 Pulse 98 11/21 1123 Resp 14 11/21 1123 Temp 37.1 11/21 0800 Pulse Ox 97 11/21 0619 O2 Delivery Nasal cannula 11/20 1135 O2 Flow Rate 2 11/20 1135 24 hour I O ending at 0700: 11/21 0700 11/20 1900 Intake Total 470.00 683 Output Total Balance 470.00 683 Intake, IV 20.00 200 Intake, Oral 450 Intake, 483 Platelet Number Voids 4 1 Patient 96.7 kg Weight Weight Bed scale Measurement Method PATIENT WEIGHT: Weight (lb): 213 Weight (oz): 2.99 Weight (kg): 96.700 General appearance: alert, awake Head/Eyes: atraumatic, clear cornea Neck: full range of motion, non-tender Cardiovascular: normal capillary refill, regular rate rhythm, normal heart sounds, BP/pulses equal bilat., no heave Respiratory: clear to auscultation, no distress, no tenderness, aerating well Genitourinary: not indicated Extremities: moves all Musculoskeletal: full range of motion, normal inspection, no CVA tenderness 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: alert, oriented X 3 Discharge Instructions PCP PCP: PCP: Saúl Damon MD )( Discharge to: Home/Self Care Discharge Instructions Additional Discharge Routines: Attending Follow-Up, Trimmer Buffing Wheel Follow-Up )( Diet: Resume Home Diet/Feeds Follow-up Appointments Attending Physician: Attending Physician: Chidi Garcia MD Consulting provider 1: Provider 1: Dl Tong MD Specialty: CardiologyInterventional Consult follow up timeframe: In 1-2 weeks Jesús Casas 11/22/23 1318: Attestations Physician Attestation Agree w/findings plan: I have seen and examined the pt, I Agree with the findings and plan as documented by Vazquez Gallego at 1142 at 1318 RPT #:[id number] END OF REPORT [facility] 2023-11-22 10:17:00 [facility] ([facility]) Structural Heart Post Progress REPORT#:[id number] REPORT STATUS: Signed REPORT INITIALIZATION DATE:11/22/23 TIME: 1017 PATIENT: CHRIS VILLANUEVA UNIT #: [id number] ROOM/BED: [place] [address] : 54 AGE: 68 SEX: M ATTEND: Chidi Garcia MD ADM AUTHOR: Vazquez Horton NP REPT SERVICE DT/TIME: 11/22/23 1017 * ALL edits or amendments must be made on the electronic/computer document * History of Present Illness HPI Procedure date: 11/21/23 TAVR procedure: Valve type: Silveira Ike Valve size: 29 Approach: transfemoral HPI: This is a 68year old male with a past medical history of severe symptomatic aortic stenosis that presented for elective transcatheter aortic valve replacement and underwent successful implant of a 29 mm Silveira Ike valve. The patient does have history of thrombocytopenia and underwent platelet transfusion prior to procedure. The patient was monitored overnight and did well. The labs and vital signs reviewed bilateral groins CDI without bleeding or hematoma. History Past medical history: Reports: Alcoholism/subst abuse. Additional medical history: Hypothyroidism and thrombocytopenia Family history: Denies: CAD < 40 yrs old. Alcohol use: Alcohol use Drug use: Denies recreational drugs Smoking status for patients 13 years old or older: Unknown,if ever smoked Medication/Allergy-Vaccine Hx Allergies: Coded Allergies: Penicillins (Severe, SINCE CHILDHOOD 11/19/23) Review of systems ROS Cardiovascular: Denies: chest pain, RAE (dyspnea on exertion), edema, orthopnea, palpitations, parox nocturnal dyspnea, other. Objective Vital Signs Nursing documented vitals: Laboratory Tests 11/22/23 0446: [Embedded Image Not Available] 11/21/23 0539: [Embedded Image Not Available] Current Medications Sig/Claus Start time Last Medication Dose Route Stop Time Status Admin Levothyroxine Sodium 100 MCG DAILY 0600 11/21 0600 AC 11/21 PO 02/19 0559 0555 Acetaminophen 650 MG ONCE ONE 11/20 2345 DC 11/20 PO 03/13 2346 2351 Mupirocin 1 APPLIC BID 11/20 2100 AC 11/21 NASAL 11/25 0901 0811 Aspirin 0 .STK-MED ONE 11/20 1230 DC PO Aspirin 0 .STK-MED ONE 11/20 1225 DC PO Aspirin 81 MG DAILY 11/20 1200 AC 11/21 PO 02/19 0859 0811 Clopidogrel Bisulfate 75 MG DAILY 11/20 1200 DC PO 02/19 0859 Fentanyl Citrate 100 MCG PACU Q10MIN PRN PRN 11/20 1045 DC IV 11/20 2038 Fentanyl Citrate 50 MCG PACU Q10MIN PRN PRN 11/20 1045 DC IV 11/20 203 Hydralazine HCl 5 MG PACU Q10MIN PRN PRN 11/20 1045 DC IV 11/20 2038 Hydrocodone Bitart/ 1 TAB PACU ONCE 11/20 1045 DC Acetaminophen PO 11/20 203 Hydromorphone HCl 1 MG PACU Q10MIN PRN PRN 11/20 1045 DC IV 11/20 2038 Hydromorphone HCl 0.5 MG PACU Q5MIN PRN PRN 11/20 1045 DC IV 11/20 203 Insulin Human Lispro 0 PACU ONCE PRN 11/20 1045 DC SUBQ 11/20 2038 Labetalol HCl 5 MG PACU Q10MIN PRN PRN 11/20 1045 DC IV 11/20 203 Meperidine HCl 12.5 MG PACU ONCE PRN 11/20 1045 DC IV 11/20 2038 Morphine Sulfate 2 MG PACU Q10MIN PRN PRN 11/20 1045 DC IV 11/20 2038 Ondansetron HCl 4 MG PACU ONCE PRN 11/20 1045 DC IV 11/20 2038 Ropivacaine 150 MG ASDIR PRN 11/20 1045 DC LOCAL 11/20 203 Tramadol HCl 50 MG PACU ONCE 11/20 1045 DC PO 11/20 2038 Atropine Sulfate 0.5 MG ASDIR PRN 11/20 1015 AC IV 02/18 1014 Sodium Chloride 500 ML ASDIR PRN 11/20 1015 AC IV 02/18 1014 Zolpidem Tartrate 5 MG BEDTIME PRN PRN 11/20 1015 AC PO 02/18 205 Vital Signs: Date Time Temp Pulse Resp B/P B/P Pulse O2 O2 Flow FiO2 Mean Ox Delivery Rate 03/14 1123 98 14 112/57 78 03/14 0813 100 25 123/58 83 03/14 0800 37.1 03/14 0626 90 20 107/53 77 03/14 0619 87 12 122/46 68 97 03/14 0615 87 10 123/46 68 96 03/14 0600 93 14 132/52 74 96 03/14 0545 100 31 114/46 72 97 03/14 0530 88 15 117/47 70 96 03/14 0515 93 20 121/42 65 96 03/14 0445 89 9 120/47 67 96 03/14 0415 91 27 109/45 66 95 03/14 0400 37.2 03/14 0300 99 14 112/47 66 97 03/14 0255 101/55 73 03/14 0255 114 22 104/46 64 94 03/14 0245 98 11 119/52 72 96 03/14 0230 96 13 111/47 67 96 03/14 0215 109 33 103/47 69 97 03/14 0015 104 9 105/47 66 96 03/14 0000 37.7 03/14 0000 107 12 114/44 66 97 03/13 2345 106 14 119/45 69 96 03/13 2330 100 8 111/50 68 97 03/13 2315 103 19 117/43 66 99 03/13 2300 102 7 108/36 57 99 03/13 2230 101 10 117/42 65 03/13 2145 100 9 115/37 60 03/13 2130 96 8 113/41 60 03/13 2115 96 6 128/41 65 03/13 2100 91 14 126/47 67 03/13 2045 92 23 115/43 65 03/13 2030 86 18 114/44 68 03/13 2015 86 13 125/44 68 03/13 2000 37.0 03/13 2000 84 19 130/49 72 03/13 1945 112/54 76 03/13 1945 88 22 111/38 61 03/13 1930 99 36 137/55 82 03/13 1915 76 11 108/39 58 100 03/13 1900 76 7 115/40 61 98 03/13 1633 59 15 112/47 67 99 03/13 1630 64 15 111/46 66 100 03/13 1615 64 17 103/46 64 99 03/13 1600 62 12 102/41 59 99 03/13 1545 60 14 105/43 62 97 11/20 1530 62 19 100/41 60 100 11/20 1500 65 23 110/52 70 99 11/20 1445 63 18 107/45 63 98 11/20 1430 64 15 116/49 69 100 11/20 1429 108/53 75 11/20 1429 67 19 117/49 70 99 11/20 1415 85 23 118/62 81 98 11/20 1400 74 24 Recent Impressions-Last 72 Hrs ULTRASOUND - [facility] [employer] 11/21 1110 Report Impression - Status: SIGNED Entered: 11/22/2023 1135 IMPRESSION: No evidence for hematoma or pseudoaneurysm visualized. Impression By: [email or web address] Marco Novoa M.D. Last Documented: Result Date Time B/P 112/57 11/21 1123 B/P Mean 78 11/21 1123 Pulse 98 11/21 1123 Resp 14 11/21 1123 Temp 37.1 11/21 0800 Pulse Ox 97 11/21 0619 O2 Delivery Nasal cannula 11/20 1135 O2 Flow Rate 2 11/20 1135 Physical Exam Medications: Active Meds + DC'd Last 24 Hrs Levothyroxine Sodium (Synthroid) 100 MCG DAILY 0600 PO Acetaminophen (TYLENOL) 650 MG ONCE ONE PO (DC) Mupirocin (BACTROBAN 2% 22 GM OINTMENT) 1 APPLIC BID NASAL Aspirin (ASPIRIN) 0 .STK-MED ONE PO (DC) Aspirin (ASPIRIN) 0 .STK-MED ONE PO (DC) Aspirin (ASPIRIN) 81 MG DAILY PO Clopidogrel Bisulfate (Plavix) 75 MG DAILY PO (DC) Fentanyl Citrate (SUBLIMAZE) 100 MCG PACU Q10MIN PRN PRN IV (DC) Fentanyl Citrate (SUBLIMAZE) 50 MCG PACU Q10MIN PRN PRN IV (DC) Hydralazine HCl (APRESOLINE) 5 MG PACU Q10MIN PRN PRN IV (DC) Hydrocodone Bitart/Acetaminophen (NORCO 5/325) 1 TAB PACU ONCE PO (DC) Hydromorphone HCl (DILAUDID) 1 MG PACU Q10MIN PRN PRN IV (DC) Hydromorphone HCl (DILAUDID) 0.5 MG PACU Q5MIN PRN PRN IV (DC) Insulin Human Lispro (HUMALOG) 0 PACU ONCE PRN SUBQ (DC) Labetalol HCl (labetalol) 5 MG PACU Q10MIN PRN PRN IV (DC) Meperidine HCl (MEPERIDINE HCL/PF) 12.5 MG PACU ONCE PRN IV (DC) Morphine Sulfate (morphine SULFATE) 2 MG PACU Q10MIN PRN PRN IV (DC) Ondansetron HCl (ZOFRAN) 4 MG PACU ONCE PRN IV (DC) Ropivacaine (NAROPIN 0.5% 150 MG/30mL) 150 MG ASDIR PRN LOCAL (DC) Tramadol HCl (ULTRAM) 50 MG PACU ONCE PO (DC) Atropine Sulfate (ATROPINE SULFATE 0.1MG/ML SYR) 0.5 MG ASDIR PRN IV Sodium Chloride (SODIUM CHLORIDE 0.9%) 500 ML ASDIR PRN IV Zolpidem Tartrate (AMBIEN) 5 MG BEDTIME PRN PRN PO General appearance: alert, awake, oriented, no acute distress Cardiovascular: BP/pulses equal bilat., normal heart sounds, regular rate rhythm Respiratory: aerating well, clear to auscultation, symmetric expansion, no distress Abdomen: soft, non-tender Extremities: dry, moves all, bilateral groin sites CDI without bleeding/hematoma Musculoskeletal: full range of motion, painless range of motion, straight leg raise neg 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: alert, oriented X 3 Skin: dry Diagnosis, Assessment Plan Diagnosis, Assessment Plan Free Text A P: 1. Severe Symptomatic Aortic Stenosis S/p TAVR 29 mm Silveira Ike valve, successful implant. Patient on aspirin as discussed with Cardiology. Hematology has evaluated the patient in the past. Patient monitored overnight, telemetry reviewed showed sinus rhythm with PVCs. Groin sites CDI, sinus rhythm no bleeding noted. Labs and vital signs reviewed. Cardiology reviewed echocardiogram and OK for discharge. F/u in clinic with Cardiology and we will follow with Structural Heart team. 2. Thrombocytopenia Patient with hx of chronic thrombocytopenia platelets in the 30,000 range. Labs reviewed and at baseline level. No evidence of active bleeding, but patient did receive platelet transfusion prior to procedure. Patient to discharge on aspirin only and follow up with Dr. Tong as an outpatient. at 1140 RPT #:[id number] END OF REPORT [facility] 2023-11-22 09:19:00 [facility] ([facility]) Cardiothoracic Surgery Prog REPORT#:[id number] REPORT STATUS: Signed REPORT INITIALIZATION DATE:11/22/23 TIME: 918 PATIENT: CHRIS VILLANUEVA UNIT #: [id number] ROOM/BED: [place] [address] : 54 AGE: 68 SEX: M ATTEND: Chidi Garcia MD ADM AUTHOR: Chidi Garcia MD REPT SERVICE DT/TIME: 11/22/23918 * ALL edits or amendments must be made on the electronic/computer document * General Post-op: day 1 Status post: 11/21/23 1. Transcatheter aortic valve replacement utilizing #29 Silveira Ike S3 Ultra pericardial valve via transfemoral approach with MAC. 2. Ascending aortogram. 3. Placement of temporary pacing wire. 4. An 18-Luxembourger MANTA closure of the right common femoral artery. 5. A 6-Luxembourger Angio-Seal closure of the left femoral artery. 6. Completion angiogram with distal runoff. Subjective Chief complaint: s/p TAVR, denies complaints Review of Systems Constitutional: Denies: chills, fatigue. Skin: Denies: bruising, ecchymosis. Allergy/Immun: Denies: allergic reaction, hives. Eyes: Denies: visual loss/blurred. Respiratory: Denies: productive cough (sputum), SOB. Cardiovascular: Denies: chest pain, RAE (dyspnea on exertion). GI: Denies: abdominal pain. : Denies: dysuria. Musculoskeletal: Denies: myalgias. Heme: Denies: bleeding. All systems rev neg: except as marked Objective General VS/I O Last Documented: Result Date Time B/P 123/58 11/21 812 B/P Mean 83 11/21 0813 Pulse 100 11/21 08 Resp 25 11/21 08 Temp 37.1 11/21 0800 Pulse Ox 97 11/21 0619 O2 Delivery Nasal cannula 11/20 1135 O2 Flow Rate 2 11/20 1135 24 hour I O ending at 0700: 11/21 0700 11/20 1900 Intake Total 470.00 683 Output Total Balance 470.00 683 Intake, IV 20.00 200 Intake, Oral 450 Intake, 483 Platelet Number Voids 4 1 Patient 96.7 kg Weight Weight Bed scale Measurement Method PATIENT WEIGHT: Weight (lb): 213 Weight (oz): 2.99 Weight (kg): 96.700 Dietitian Nutrition assessment The data set between the solid lines has been imported from the dietitian's assessment. BMI Calculated: 27.4 Nutrition related diagnosis: Nutrition diagnosis details: Nutrition problem: Nutrition etiology: Nutrition signs and symptoms: Nutrition prescription: Dietitian name: Assessment completed: Physical Exam General appearance: alert, awake, oriented, no acute distress HEENT: mucosal membranes moist Neck: full range of motion Cardiovascular: BP/pulses equal bilat., normal heart sounds, regular rate rhythm Respiratory: clear to auscultation, symmetric expansion Abdomen: soft, non-tender, normal bowel sounds Genitourinary: no flank pain Extremities: dry, moves all, normal capillary refill Musculoskeletal: full range of motion 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: alert, oriented X 3 Skin: dry, intact, normal temperature Current Medications Medications: Active Meds + DC'd Last 24 Hrs Levothyroxine Sodium (Synthroid) 100 MCG DAILY 0600 PO Acetaminophen (TYLENOL) 650 MG ONCE ONE PO (DC) Mupirocin (BACTROBAN 2% 22 GM OINTMENT) 1 APPLIC BID NASAL Aspirin (ASPIRIN) 0 .STK-MED ONE PO (DC) Aspirin (ASPIRIN) 0 .STK-MED ONE PO (DC) Aspirin (ASPIRIN) 81 MG DAILY PO Clopidogrel Bisulfate (Plavix) 75 MG DAILY PO (DC) Fentanyl Citrate (SUBLIMAZE) 100 MCG PACU Q10MIN PRN PRN IV (DC) Fentanyl Citrate (SUBLIMAZE) 50 MCG PACU Q10MIN PRN PRN IV (DC) Hydralazine HCl (APRESOLINE) 5 MG PACU Q10MIN PRN PRN IV (DC) Hydrocodone Bitart/Acetaminophen (NORCO 5/325) 1 TAB PACU ONCE PO (DC) Hydromorphone HCl (DILAUDID) 1 MG PACU Q10MIN PRN PRN IV (DC) Hydromorphone HCl (DILAUDID) 0.5 MG PACU Q5MIN PRN PRN IV (DC) Insulin Human Lispro (HUMALOG) 0 PACU ONCE PRN SUBQ (DC) Labetalol HCl (labetalol) 5 MG PACU Q10MIN PRN PRN IV (DC) Meperidine HCl (MEPERIDINE HCL/PF) 12.5 MG PACU ONCE PRN IV (DC) Morphine Sulfate (morphine SULFATE) 2 MG PACU Q10MIN PRN PRN IV (DC) Ondansetron HCl (ZOFRAN) 4 MG PACU ONCE PRN IV (DC) Ropivacaine (NAROPIN 0.5% 150 MG/30mL) 150 MG ASDIR PRN LOCAL (DC) Tramadol HCl (ULTRAM) 50 MG PACU ONCE PO (DC) Atropine Sulfate (ATROPINE SULFATE 0.1MG/ML SYR) 0.5 MG ASDIR PRN IV Sodium Chloride (SODIUM CHLORIDE 0.9%) 500 ML ASDIR PRN IV Zolpidem Tartrate (AMBIEN) 5 MG BEDTIME PRN PRN PO Results Findings/Data: Laboratory Tests 11/21 0446 Chemistry Sodium (134 - 147 mEq/L) 136 Potassium (3.4 - 5.0 mEq/L) 4.0 Chloride (100 - 108 mEq/L) 106 Carbon Dioxide (21 - 33 mEq/l) 25 Anion Gap (0 - 20) 9 BUN (7 - 25 mg/dL) 13 Creatinine (0.6 - 1.3 mg/dL) 0.9 Glomerular Filtr Rate (80 - 90) 92.5 H Glucose (77 - 141 mg/dL) 104 Calcium (8.0 - 10.5 mg/dL) 8.3 Laboratory Tests 11/20 11/20 1004 0944 Coagulation Activated Coag Time (SECONDS) 307 347 Laboratory Tests 11/21 0446 Hematology WBC (4.5 - 11.0 x10 3/uL) 4.2 L RBC (4.00 - 5.60 x10 6/uL) 2.90 L Hgb (12.5 - 16.9 g/dL) 10.9 L Hct (37.5 - 50.7 %) 32.3 L MCV (81.0 - 99.0 fL) 111.4 H MCH (27.0 - 33.0 pg) 37.6 H MCHC (33.0 - 37.0 g/dL) 33.7 RDW (11.5 - 14.5 %) 13.3 Plt Count (150 - 400 x10 3/uL) 39 L MPV (7.0 - 9.0 fL) 9.8 H Neut % (Auto) (56.0 - 77.0 %) 62.4 Lymph % (Auto) (14.0 - 32.0 %) 20.5 Custer % (Auto) (4.8 - 9.0 %) 15.3 H Eos % (Auto) (0.3 - 3.7 %) 1.4 Baso % (Auto) (0.0 - 2.0 %) 0.2 Neut # (Auto) (2.0 - 7.6 x10 3/uL) 2.64 Lymph # (Auto) (1.0 - 3.8 x10 3/uL) 0.87 L Custer # (Auto) (0.1 - 0.8 x10 3/uL) 0.65 Eos # (Auto) (0.0 - 0.2 x10 3/uL) 0.06 Baso # (Auto) (0.0 - 0.2 x10 3/uL) 0.01 Abs Immat Gran (auto) (0.00 - 0.03 x10 3/uL) 0.01 Immature Gran % (0.0 - 2.0 %) 0.2 Nucleated RBC % (0 - 0 %) 0.0 Nucleated RBCs # (Man) (0.0 - 0.1 x10 3/uL) 0.00 Immature Plt Fraction (0.9 - 11.2 %) 2.2 Results: vital signs stable, echo personally reviewed Diagnosis, Assessment Plan Hospital course to date: This patient is a 68-year-old male with a past medical history of thrombocytopenia, leukopenia, aortic stenosis, and hypothyroid who presented to the hospital today for TAVR procedure. On his previous admission he was found to have significant thrombocytopenia and procedure was postponed. Hematology workup was completed and recommended transfusion of platelets 1 hour before procedure. Patient reports dyspnea on exertion, denies chest pain. Patient is being admitted today for TAVR. Postop care Monitor neurostatus and groin checks Advance diet as tolerated Repeat echocardiogram in a.m. Cardiology consulted 11/21/23 TAVR today 11/21/23 1. Transcatheter aortic valve replacement utilizing #29 Silveira Ike S3 Ultra pericardial valve via transfemoral approach with MAC. 2. Ascending aortogram. 3. Placement of temporary pacing wire. 4. An 18-Luxembourger MANTA closure of the right common femoral artery. 5. A 6-Luxembourger Angio-Seal closure of the left femoral artery. 6. Completion angiogram with distal runoff. 11/22/23 Alert and oriented x 3, groin sites intact. No complaints. Echocardiogram today Okay to discharge home Patient to follow-up outpatient with general cardiology. at 1026 RPT #:[id number] END OF REPORT [facility] 2023-11-22 05:16:00 [id number] [address] PATIENT NAME: CHRIS VILLANUEVA ADMIT DATE: 11/21/23 ACCOUNT NO: [id number] ROOM NO: [facility] AGE: 68 REPORT TYPE: eELECTROCARDIOGRAM REPORT SEX: M ADMITTING PHYSICIAN:Chidi Garcia MD ATTENDING PHYSICIAN:Chidi Garcia MD Order: [id number] Test Reason : S/P TAVR Test Date/Time Stamp: SunNov 22 2023 05:16:34 Blood Pressure : / mmHG Vent. Rate : 095 BPM Atrial Rate : 095 BPM P-R Int : 224 ms QRS Dur : 108 ms QT Int : 370 ms P-R-T Axes : 060 -43 086 degrees QTc Int : 464 ms Sinus rhythm with 1st degree AV block with premature supraventricular complexes Left axis deviation Nonspecific T wave abnormality Prolonged QT Abnormal ECG When compared with ECG of 21-NOV-2023 10:42, No changes Confirmed by MD THOMPSON GERARD ([id number]) on 11/22/2023 8:30:22 PM Referred By: Dl Tong Confirmed by:MARYCARMEN THOMPSON MD at 2030 PATIENT NAME: CHRIS VILLANUEVA [facility] 2023-11-22 00:30:00 [id number] [place] [address] PATIENT NAME: CHRIS VILLANUEVA ADMIT DATE: 11/21/23 ACCOUNT NO: [id number] ROOM NO: [id number] AGE: 68 REPORT TYPE: eECHOCARDIOGRAM REPORT SEX: M ADMITTING PHYSICIAN:Chidi Garcia MD ATTENDING PHYSICIAN:Chidi Garcia MD *[place] [address] Limited Transthoracic Echocardiogram Patient: Chris Villanueva Study Date: 11/21/2023 BP: 90 / 52 URN: [id number] Location: : 1955 Age: 68 Gender: M Height: 70 in / 177.8 cm Weight: 220 lb / 99.8 kg BMI/BSA: 31.6 kg/m 2 / 2.25 m 2 *Ordering Physician: * Toño David NP *Interpreting Physician: * Jesús Casas MD *Equities Analyst: * Ashley Loera Indications: Hypotension, rule out pericardial effusion. Study data: Transthoracic echocardiogram, limited study. Procedure: A transthoracic echocardiogram was performed. Image quality was adequate. Limited 2D and limited spectral Doppler. Location: [facility]. Patient status: Outpatient. Patient room number: 20. Study status: Routine. Heart rate: 73 bpm. Rhythm: Normal sinus rhythm. Findings Left ventricle: The cavity size is normal. Wall thickness is mildly increased. Systolic function is at the lower limits of normal. The estimated ejection fraction is 50-54%. Wall motion is normal; there are no regional wall motion abnormalities. PATIENT NAME: CHRIS VILLANUEVA Right ventricle: The cavity size is normal. Systolic function is normal. Left atrium: The atrium is normal in size. Right atrium: The atrium is normal in size. Aortic valve: A bioprosthetic valve is present. Mitral valve: The valve is structurally normal. Pericardium: There is no pericardial effusion. Systemic veins: Inferior vena cava: The IVC is normal-sized. Conclusions Summary: 1. Left ventricle: The cavity size is normal. Wall thickness is mildly increased. Systolic function is at the lower limits of normal. The estimated ejection fraction is 50-54%. Wall motion is normal; there are no regional wall motion abnormalities. 2. Aortic valve: A bioprosthetic valve is present. Electronically signed by Jesús Casas MD 11/22/2023 00:30 at 0030 PATIENT NAME: CHRIS VILLANUEVA [facility] 2023-11-22 00:00:00 [facility] ([facility] Cardiology Consultation REPORT#:[id number] REPORT STATUS: Signed REPORT INITIALIZATION DATE:11/22/23 TIME: 0000 PATIENT: CHRIS VILLANUEVA UNIT #: [id number] ROOM/BED: [place] [address] : 53 AGE: 68 SEX: M ATTEND: Chidi Garcia MD ADM AUTHOR: Jesús Casas MD REPT SERVICE DT/TIME: 11/21/23 1420 * ALL edits or amendments must be made on the electronic/computer document * See Addendum History of Present Illness HPI Requesting Clinician: Dr. Garcia Reason for consult: Severe symptomatic Chief complaint: RAE PCP: PCP: Saúl Damon MD HPI: This is a very pleasant 68 YO male with PMHx of severe , chronic thrombocytopenia who is here for TAVR. Pt has RAE, but no CP or LOC. He has chronic thrombocytopenia and was cleared by Hem to have TAVR with one unit Plt transfusion prior to procedure. Pt had successful TAVR implant and admitted for monitoring. History - Adult longitudinal Past medical history: Reports: Alcoholism/subst abuse. Additional medical history: Hypothyroidism and thrombocytopenia Family history: Denies: CAD < 40 yrs old. Alcohol use: Alcohol use Drug use: Denies recreational drugs Smoking status for patients 13 years old or older: Unknown,if ever smoked Allergies: Coded Allergies: Penicillins (Severe, SINCE CHILDHOOD 11/19/23) Review of Systems Additional notes: As per HPI otherwise negative 12 system points Objective General VS/I O: Vital Signs: Date Time Temp Pulse Resp B/P B/P Pulse O2 O2 Flow FiO2 Mean Ox Delivery Rate 11/20 1633 59 15 112/47 67 99 11/20 1630 64 15 111/46 66 100 11/20 1615 64 17 103/46 64 99 11/20 1600 62 12 102/41 59 99 11/20 1545 60 14 105/43 62 97 11/20 1530 62 19 100/41 60 100 11/20 1500 65 23 110/52 70 99 11/20 1445 63 18 107/45 63 98 11/20 1430 64 15 116/49 69 100 11/20 1429 108/53 75 11/20 1429 67 19 117/49 70 99 11/20 1415 85 23 118/62 81 98 11/20 1400 74 24 11/20 1135 Nasal 2 cannula 11/20 0750 97.8 82 133/62 100 11/20 0733 97.9 85 133/62 98 11/20 0728 98.1 87 130/63 99 11/20 0722 97.9 85 129/66 98 11/20 0714 98.1 90 130/62 99 11/20 0709 98.2 84 128/63 100 11/20 0703 97.8 87 123/65 100 24 hour I O ending at 0700: 11/21 0700 11/20 1900 Intake Total 683 Output Total Balance 683 Intake, IV 200 Intake, 483 Platelet Number Voids 1 PATIENT WEIGHT: Weight (lb): 208 Weight (oz): 6.98 Weight (kg): 94.545 Medications: Active Meds + DC'd Last 24 Hrs Levothyroxine Sodium (Synthroid) 100 MCG DAILY 0600 PO Acetaminophen (TYLENOL) 650 MG ONCE ONE PO (DC) Mupirocin (BACTROBAN 2% 22 GM OINTMENT) 1 APPLIC BID NASAL Aspirin (ASPIRIN) 0 .STK-MED ONE PO (DC) Aspirin (ASPIRIN) 0 .STK-MED ONE PO (DC) Aspirin (ASPIRIN) 81 MG DAILY PO Clopidogrel Bisulfate (Plavix) 75 MG DAILY PO (DC) Fentanyl Citrate (SUBLIMAZE) 100 MCG PACU Q10MIN PRN PRN IV (DC) Fentanyl Citrate (SUBLIMAZE) 50 MCG PACU Q10MIN PRN PRN IV (DC) Hydralazine HCl (APRESOLINE) 5 MG PACU Q10MIN PRN PRN IV (DC) Hydrocodone Bitart/Acetaminophen (NORCO 5/325) 1 TAB PACU ONCE PO (DC) Hydromorphone HCl (DILAUDID) 1 MG PACU Q10MIN PRN PRN IV (DC) Hydromorphone HCl (DILAUDID) 0.5 MG PACU Q5MIN PRN PRN IV (DC) Insulin Human Lispro (HUMALOG) 0 PACU ONCE PRN SUBQ (DC) Labetalol HCl (labetalol) 5 MG PACU Q10MIN PRN PRN IV (DC) Meperidine HCl (MEPERIDINE HCL/PF) 12.5 MG PACU ONCE PRN IV (DC) Morphine Sulfate (morphine SULFATE) 2 MG PACU Q10MIN PRN PRN IV (DC) Ondansetron HCl (ZOFRAN) 4 MG PACU ONCE PRN IV (DC) Ropivacaine (NAROPIN 0.5% 150 MG/30mL) 150 MG ASDIR PRN LOCAL (DC) Tramadol HCl (ULTRAM) 50 MG PACU ONCE PO (DC) Atropine Sulfate (ATROPINE SULFATE 0.1MG/ML SYR) 0.5 MG ASDIR PRN IV Sodium Chloride (SODIUM CHLORIDE 0.9%) 500 ML ASDIR PRN IV Zolpidem Tartrate (AMBIEN) 5 MG BEDTIME PRN PRN PO Fentanyl Citrate (SUBLIMAZE) 0 .STK-MED ONE .ROUTE (DC) Parenteral Electrolytes (PLASMA-LYTE A pH 7.4) 1,000 ML .STK-MED ONE IV (DC) Midazolam HCl (VERSED) 0 .STK-MED ONE .ROUTE (DC) Cefazolin Sodium (KEFZOL OR ANCEF) 0 .STK-MED ONE .ROUTE (DC) Acetaminophen (TYLENOL EXTRA STRENGTH) 0 .STK-MED ONE PO (DC) Acetaminophen (TYLENOL EXTRA STRENGTH) 1,000 MG ONCE ONE PO (DC) Iopamidol (ISOVUE-370 100ML) 0 .STK-MED ONE IV (DC) Heparin Sodium/Sodium Chloride (HEPARIN 2,000 UNITS/NS 1,000mL) 2,000 ML .STK-MED ONE IV (DC) Lidocaine HCl (LIDOCAINE HCL/PF) 0 .STK-MED ONE .ROUTE (DC) Heparin Sodium (HEPARIN SODIUM) 0 .STK-MED ONE .ROUTE (DC) Dexmedetomidine HCl (PRECEDEX) 0 .STK-MED ONE IV (DC) Norepinephrine Bitartrate (LEVOPHED BITARTATE) 0 .STK-MED ONE IV (DC) Lidocaine HCl (XYLOCAINE) 0 .STK-MED ONE .ROUTE (DC) Physical Exam General appearance: alert, awake, oriented Head/Eyes: PERRLA ENT: normal nose Neck: no JVD Cardiovascular: CV assessment: murmur Respiratory: clear to auscultation, no distress Abdomen: soft, non-tender Lower extremity: LE assessment: no cyanosis, no edema 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: alert, oriented X 3 Psychiatry: normal affect, normal judgment/insight, normal mood Results Findings/Data: Laboratory Tests 11/20 11/20 0539 0539 Chemistry Sodium (134 - 147 mEq/L) 138 Potassium (3.4 - 5.0 mEq/L) 3.6 Chloride (100 - 108 mEq/L) 103 Carbon Dioxide (21 - 33 mEq/l) 28 Anion Gap (0 - 20) 11 BUN (7 - 25 mg/dL) 13 Creatinine (0.6 - 1.3 mg/dL) 0.9 Glomerular Filtr Rate (80 - 90) 92.5 H Glucose (77 - 141 mg/dL) 106 Calcium (8.0 - 10.5 mg/dL) 8.9 B-Natriuretic Peptide (0 - 100 PG/ML) 394.0 H Albumin (3.4 - 5.0 g/dL) 3.30 L Laboratory Tests 11/20 11/20 11/20 1004 0944 0539 Coagulation INR (0.8 - 1.2) 1.1 PT Patient/Control Mix (9.3 - 12.9 SECONDS) 11.9 Activated Coag Time (SECONDS) 307 347 Laboratory Tests 11/20 0539 Hematology WBC (4.5 - 11.0 x10 3/uL) 3.6 L RBC (4.00 - 5.60 x10 6/uL) 3.49 L Hgb (12.5 - 16.9 g/dL) 13.3 Hct (37.5 - 50.7 %) 39.3 MCV (81.0 - 99.0 fL) 112.6 H MCH (27.0 - 33.0 pg) 38.1 H MCHC (33.0 - 37.0 g/dL) 33.8 RDW (11.5 - 14.5 %) 13.4 Plt Count (150 - 400 x10 3/uL) 34 L MPV (7.0 - 9.0 fL) 12.1 H Neut % (Auto) (56.0 - 77.0 %) 42.1 L Lymph % (Auto) (14.0 - 32.0 %) 38.3 H Custer % (Auto) (4.8 - 9.0 %) 14.0 H Eos % (Auto) (0.3 - 3.7 %) 4.7 H Baso % (Auto) (0.0 - 2.0 %) 0.6 Neut # (Auto) (2.0 - 7.6 x10 3/uL) 1.53 L Lymph # (Auto) (1.0 - 3.8 x10 3/uL) 1.39 Custer # (Auto) (0.1 - 0.8 x10 3/uL) 0.51 Eos # (Auto) (0.0 - 0.2 x10 3/uL) 0.17 Baso # (Auto) (0.0 - 0.2 x10 3/uL) 0.02 Abs Immat Gran (auto) (0.00 - 0.03 x10 3/uL) 0.01 Immature Gran % (0.0 - 2.0 %) 0.3 Nucleated RBC % (0 - 0 %) 0.0 Nucleated RBCs # (Man) (0.0 - 0.1 x10 3/uL) 0.00 Platelet Estimate (ADEQUATE THOUSAND) 28-35 Immature Plt Fraction (0.9 - 11.2 %) 4.6 Plt Morphology Comment LARGE PLATELETS Polychromasia 1+ Anisocytosis 1+ Macrocytosis 3+ Laboratory Tests 11/20 538 Serology SARS-CoV-2 Ag (Rapid) (Negative) Negative Microbiology Date/Time Procedure - Status Source Growth 11/20 538 MRSA DNA Surveillance Screen - COMP NASAL Laboratory Tests 11/20 538 Chemistry B-Natriuretic Peptide (0 - 100 PG/ML) 394.0 H Diagnosis, Assessment Plan Free Text DxA P Notes Free Text DxA P Notes: 1. Severe : s/p TAVR with Silveira 29 mm Valve. Had low BP post op but was ASx, repeat ECHO no effusion and normal function valve. 2. Thrombocytopenia: chronic, s/p one Unit of Plt transfusion at 1317 Addendum 1: 11/22/23 1317 by Jesús Casas MD DOS 11/21/23 at 1318 [facility] #:[id number] END OF REPORT [facility] 2023-11-21 12:10:00 [id number] [address] PATIENT NAME: CHRIS VILLANUEVA ADMIT DATE: 11/21/23 ACCOUNT NO: [id number] ROOM NO: [facility] AGE: 68 REPORT TYPE: OPERATIVE REPORT SEX: M ADMITTING PHYSICIAN:Chidi Garcia MD ATTENDING PHYSICIAN:Chidi Garcia MD OPERATION DATE: 11/21/2023 PREOPERATIVE DIAGNOSIS: Aortic stenosis. POSTOPERATIVE DIAGNOSIS: Aortic stenosis. PROCEDURES: 1. Transcatheter aortic valve replacement utilizing #29 Silveira Ike S3 Ultra pericardial valve via transfemoral approach with MAC. 2. Ascending aortogram. 3. Placement of temporary pacing wire. 4. An 18-Luxembourger MANTA closure of the right common femoral artery. 5. A 6-Luxembourger Angio-Seal closure of the left femoral artery. 6. Completion angiogram with distal runoff. SURGEON: Vbiha Garcia M.D. CARDIOLOGISTS: 1. Dr. Tong. 2. Dr. Casas. SPIRITUAL ADVISOR: ANESTHESIA: MAC. ESTIMATED BLOOD LOSS. 20 mL. INDICATION: Mr. Villanueva is a pleasant 68-year-old gentleman with severe symptomatic aortic stenosis. He was investigated and found to be a suitable candidate for TAVR. After due preop counseling, he was brought to the operating room today for TAVR. FINDINGS: 1. Severe calcification of the aortic valve. 2. Delivery system was passed without difficulty into the left ventricular outflow tract for deployment. 3. A size 29 mm Ike S3 Ultra valve was required. 4. Post-placement transthoracic echo revealed no paravalvular leak. 5. Completion angiogram did not show any evidence of flap or stenosis in the right iliac or femoral arteries. 6. The patient had good Doppler signals in both lower extremities following the procedure. PATIENT NAME: CHRIS VILLANUEVA PROCEDURE IN DETAIL: Further details will be dictated by Dr. Tong as he was department of sociology chair. Mr. Villanueva was identified in the preoperative holding area and brought to the operating room and placed supine on the operating table. After a timeout procedure was performed, which confirmed the patient's name, medical record number, and the procedure to be performed. The chest, abdomen and groins were prepped and draped in standard surgical fashion. A 1% lidocaine was used to anesthetize the area over the right femoral artery, right femoral vein and left femoral artery. After placement of appropriate sheath, the patient was heparinized., to maintain ACT of more than 250 seconds. An aortic root shot was performed noting the optimal angle for deployment of the valve. This confirmed the position already determined by CT angiogram 3D reconstruction. Subsequently, a 29 mm Silveira Ike S3 Ultra transcatheter valve was placed into the sheath in the right femoral artery and brought up through the aortic valve and placed in the correct position. This was confirmed by the heart valve team. Subsequently, the rapid ventricular pacing was performed. The valve was deployed in the aortic annulus appropriately. The Cordis and sheath were pulled back. Post-placement transthoracic echo revealed good placement of the valve with no aortic insufficiency. Mean gradient was minimal. Subsequently, the sheath was removed. The right common femoral artery was closed with MANTA device, the left common femoral artery was closed with Angio-Seal device. Sterile dressings were applied. A completion angiogram did not show any evidence of flap or narrowing in the iliac or femoral artery. The left common femoral artery was closed with Angio-Seal device. Sterile dressings were applied. I was present as a cosurgeon in conjunction with Dr. Casas and Dr. Tong. Dr. Tong will dictate his portion in detail. The patient tolerated the procedure well and was taken to the PACU in stable condition. Needle, sponge, and instrument count were correct at the end of the case. Dictated By: Vibha Garcia MD Date Dictated: 11/21/2023 12:10:53 Date Transcribed: 11/21/2023 12:34:31 SAUMYA/LEFTY Receipt ID: [id number] Authenticated by Chidi Garcia MD On 11/25/2023 07:06:16 AM at 0706 PATIENT NAME: CHRIS VILLANUEVA [facility] 2023-11-21 10:44:00 [facility] ([facility]) History Physical - Adult REPORT#:[id number] REPORT STATUS: Signed REPORT INITIALIZATION DATE:11/21/23 TIME: 1043 PATIENT: CHRIS VILLANUEVA UNIT #: [id number] ROOM/BED: 3303-1 : 54 AGE: 68 SEX: M ATTEND: Chidi Garcia MD ADM AUTHOR: Chidi Garcia MD REPT SERVICE DT/TIME: 11/21/23 1044 * ALL edits or amendments must be made on the electronic/computer document * History of Present Illness HPI Chief complaint: severe aortic valve stenosis PCP: PCP: Saúl Damon MD HPI: This patient is a 68-year-old male with a past medical history of thrombocytopenia, leukopenia, aortic stenosis, and hypothyroid who presented to the hospital today for TAVR procedure. On his previous admission he was found to have significant thrombocytopenia and procedure was postponed. Hematology workup was completed and recommended transfusion of platelets 1 hour before procedure. Patient reports dyspnea on exertion, denies chest pain. Patient is being admitted today for TAVR. History Past medical history: Reports: Alcoholism/subst abuse. Additional medical history: Hypothyroidism and thrombocytopenia Family history: Denies: CAD < 40 yrs old. Alcohol use: Alcohol use Drug use: Denies recreational drugs Smoking status for patients 13 years old or older: Unknown,if ever smoked Medication/Allergy-Vaccine Hx Medications: Home Medications: Medication Dose/Rte/Freq Days Qty Entered Last Max Daily Dose Reviewed FOLIC ACID 1 MG PO DAILY 11/12/23 11/21/23 Strength: 1 MG TAB 1102 0609 ZOLPIDEM (AMBIEN) 10 MG PO BEDTIME 11/12/23 11/21/23 Strength: 10 MG TAB 1102 0609 LEVOTHYROXINE 100 MCG PO DAILY 11/12/23 11/21/23 (SYNTHROID) 1103 0609 Strength: 100 MCG TAB Current Hospital Medications: Anti-Infective Agents Sig/Claus Start time Last Medication Dose Route Stop Time Status Admin Cefazolin Sodium 0 .STK-MED ONE 11/20 0851 DC 11/20 (KEFZOL OR ANCEF) .ROUTE 0908 Autonomic Drugs Sig/Claus Start time Last Medication Dose Route Stop Time Status Admin Atropine Sulfate 0.5 MG ASDIR PRN 11/20 1015 AC (ATROPINE SULFATE IV 02/18 1014 0.1MG/ML SYR) Norepinephrine 0 .STK-MED ONE 11/20 0629 DC Bitartrate IV (LEVOPHED BITARTATE) Blood Formation,Coagulation Sig/Claus Start time Last Medication Dose Route Stop Time Status Admin Clopidogrel Bisulfate 75 MG DAILY 11/20 1200 UNVr (Plavix) PO 02/19 0859 Heparin Sodium/ 2,000 ML .STK-MED ONE 11/20 0702 DC 11/20 Sodium Chloride IV 0908 (HEPARIN 2,000 UNITS/ NS 1,000mL) Heparin Sodium 0 .STK-MED ONE 11/20 0651 DC (HEPARIN SODIUM) .ROUTE Cardiovascular Drugs Sig/Claus Start time Last Medication Dose Route Stop Time Status Admin Hydralazine HCl 5 MG PACU Q10MIN PRN PRN 11/20 1045 UNV (APRESOLINE) IV 11/20 2037 Labetalol HCl 5 MG PACU Q10MIN PRN PRN 11/20 1045 UNV (labetalol) IV 11/20 2037 Lidocaine HCl 0 .STK-MED ONE 11/20 0702 DC 11/20 (LIDOCAINE HCL/PF) .ROUTE 0908 Lidocaine HCl 0 .STK-MED ONE 11/20 0617 DC (XYLOCAINE) .ROUTE Central Nervous System Agents Sig/Claus Start time Last Medication Dose Route Stop Time Status Admin Aspirin 81 MG DAILY 11/20 1200 AC (ASPIRIN) PO 02/19 0859 Fentanyl Citrate 100 MCG PACU Q10MIN PRN PRN 11/20 1045 UNV (SUBLIMAZE) IV 11/20 2037 Fentanyl Citrate 50 MCG PACU Q10MIN PRN PRN 11/20 1045 UNV (SUBLIMAZE) IV 11/20 203 Hydrocodone Bitart/ 1 TAB PACU ONCE 11/20 1045 UNV Acetaminophen PO 11/20 203 (NORCO 5/325) Hydromorphone HCl 1 MG PACU Q10MIN PRN PRN 11/20 1045 UNV (DILAUDID) IV 11/20 2037 Hydromorphone HCl 0.5 MG PACU Q5MIN PRN PRN 11/20 1045 UNV (DILAUDID) IV 11/20 2037 Meperidine HCl 12.5 MG PACU ONCE PRN 11/20 1045 UNV (MEPERIDINE HCL/PF) IV 11/20 2037 Morphine Sulfate 2 MG PACU Q10MIN PRN PRN 11/20 1045 UNV (morphine SULFATE) IV 11/20 203 Tramadol HCl 50 MG PACU ONCE 11/20 1045 UNV (ULTRAM) PO 11/20 2037 Zolpidem Tartrate 10 MG BEDTIME PRN PRN 11/20 1015 UNVr (AMBIEN) PO 02/18 2059 Fentanyl Citrate 0 .STK-MED ONE 11/20 0915 DC (SUBLIMAZE) .ROUTE Midazolam HCl 0 .STK-MED ONE 11/20 0907 DC (VERSED) .ROUTE Acetaminophen 0 .STK-MED ONE 11/20 0752 DC (TYLENOL EXTRA PO STRENGTH) Acetaminophen 1,000 MG ONCE ONE 11/20 0730 DC 11/20 (TYLENOL EXTRA PO 11/20 0731 0753 STRENGTH) Dexmedetomidine HCl 0 .STK-MED ONE 11/20 0629 DC (PRECEDEX) IV Diagnostic Agents Sig/Claus Start time Last Medication Dose Route Stop Time Status Admin Iopamidol 0 .STK-MED ONE 11/20 0703 DC 11/20 (ISOVUE-370 100ML) IV 0908 Electrolytic, Caloric, And Tea Sig/Claus Start time Last Medication Dose Route Stop Time Status Admin Sodium Chloride 500 ML ASDIR PRN 11/20 1015 AC (SODIUM CHLORIDE IV 02/18 1014 0.9%) Parenteral 1,000 ML .STK-MED ONE 11/20 09 DC Electrolytes IV (PLASMA-LYTE A pH 7.4) Gastrointestinal Drugs Sig/Claus Start time Last Medication Dose Route Stop Time Status Admin Ondansetron HCl 4 MG PACU ONCE PRN 11/20 1045 UNV (ZOFRAN) IV 11/20 2037 Hormones And Synthetic Substit Sig/Claus Start time Last Medication Dose Route Stop Time Status Admin Levothyroxine Sodium 100 MCG DAILY 11/21 0900 UNV (Synthroid) PO 02/19 0859 Insulin Human Lispro 0 PACU ONCE PRN 11/20 1045 UNV (HUMALOG) SUBQ 11/20 2037 Local Anesthetics (Parenteral) Sig/Claus Start time Last Medication Dose Route Stop Time Status Admin Ropivacaine 150 MG ASDIR PRN 11/20 1045 UNV (NAROPIN 0.5% 150 MG/ LOCAL 11/20 2038 30mL) Allergies: Coded Allergies: Penicillins (Severe, SINCE CHILDHOOD 11/19/23) Review of Systems Constitutional: Denies: chills, fatigue, fever. Skin: Denies: abrasion, bruising, contusion. Allergy/Immun: Denies: allergic reaction, anaphylaxis, hives. Eyes: Denies: redness, discharge, visual loss/blurred. ENT: Denies: ear drainage, ear ringing, earache. Respiratory: Reports: RAE (dyspnea on exertion). Denies: pneumonia. Cardiovascular: Denies: chest pain, palpitations. GI: Denies: abdominal pain, nausea, vomiting. : Denies: dysuria, flank pain. Heme: Denies: adenopathy, bleeding, bruising. Neuro: Denies: confusion, dizziness, seizure, syncope. All systems rev neg: except as marked Physical Exam VS/I O Vital Signs: Date Time Temp Pulse Resp B/P B/P Pulse O2 O2 Flow FiO2 Mean Ox Delivery Rate 11/20 0750 36.6 82 133/62 100 11/20 0733 36.6 85 133/62 98 11/20 0728 36.7 87 130/63 99 11/20 0722 36.6 85 129/66 98 11/20 0714 36.7 90 130/62 99 11/20 0709 36.8 84 128/63 100 11/20 0703 36.6 87 123/65 100 PATIENT WEIGHT: Weight (lb): 208 Weight (oz): 6.98 Weight (kg): 94.545 General appearance: alert, awake, oriented Head/Eyes: atraumatic, EOMI, normocephalic ENT: moist mucosal membranes Neck: full range of motion, non-tender Cardiovascular: regular rate rhythm, normal heart sounds Respiratory: clear to auscultation, aerating well, symmetric expansion Abdomen/GI: active bowel sounds, soft Genitourinary: no flank pain Extremities: moves all, normal capillary refill, normal range of motion Musculoskeletal: full range of motion, normal inspection 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: alert, oriented X 3 Skin: dry, intact Psychiatry: normal affect, normal mood Results Findings/Data: Laboratory Tests: 11/20 11/20 11/20 1004 0944 0539 Chemistry B-Natriuretic Peptide (0 - 100 PG/ML) 394.0 H Coagulation Activated Coag Time (SECONDS) 307 347 /13 0539 Chemistry Sodium (134 - 147 mEq/L) 138 Potassium (3.4 - 5.0 mEq/L) 3.6 Chloride (100 - 108 mEq/L) 103 Carbon Dioxide (21 - 33 mEq/l) 28 Anion Gap (0 - 20) 11 BUN (7 - 25 mg/dL) 13 Creatinine (0.6 - 1.3 mg/dL) 0.9 Glomerular Filtr Rate (80 - 90) 92.5 H Glucose (77 - 141 mg/dL) 106 Calcium (8.0 - 10.5 mg/dL) 8.9 Albumin (3.4 - 5.0 g/dL) 3.30 L Coagulation INR (0.8 - 1.2) 1.1 PT Patient/Control Mix (9.3 - 12.9 SECONDS) 11.9 Hematology WBC (4.5 - 11.0 x10 3/uL) 3.6 L RBC (4.00 - 5.60 x10 6/uL) 3.49 L Hgb (12.5 - 16.9 g/dL) 13.3 Hct (37.5 - 50.7 %) 39.3 MCV (81.0 - 99.0 fL) 112.6 H MCH (27.0 - 33.0 pg) 38.1 H MCHC (33.0 - 37.0 g/dL) 33.8 RDW (11.5 - 14.5 %) 13.4 Plt Count (150 - 400 x10 3/uL) 34 L MPV (7.0 - 9.0 fL) 12.1 H Neut % (Auto) (56.0 - 77.0 %) 42.1 L Lymph % (Auto) (14.0 - 32.0 %) 38.3 H Custer % (Auto) (4.8 - 9.0 %) 14.0 H Eos % (Auto) (0.3 - 3.7 %) 4.7 H Baso % (Auto) (0.0 - 2.0 %) 0.6 Neut # (Auto) (2.0 - 7.6 x10 3/uL) 1.53 L Lymph # (Auto) (1.0 - 3.8 x10 3/uL) 1.39 Custer # (Auto) (0.1 - 0.8 x10 3/uL) 0.51 Eos # (Auto) (0.0 - 0.2 x10 3/uL) 0.17 Baso # (Auto) (0.0 - 0.2 x10 3/uL) 0.02 Abs Immat Gran (auto) (0.00 - 0.03 x10 3/uL) 0.01 Immature Gran % (0.0 - 2.0 %) 0.3 Nucleated RBC % (0 - 0 %) 0.0 Nucleated RBCs # (Man) (0.0 - 0.1 x10 3/uL) 0.00 Platelet Estimate (ADEQUATE THOUSAND) 28-35 Immature Plt Fraction (0.9 - 11.2 %) 4.6 Plt Morphology Comment LARGE PLATELETS Polychromasia 1+ Anisocytosis 1+ Macrocytosis 3+ Serology SARS-CoV-2 Ag (Rapid) (Negative) Negative Results: labs reviewed, vital signs reviewed, vital signs stable, rhythm personally rev'd, current med profile rev'd Diagnosis, Assessment Plan Free Text DxA P Notes Free Text DxA P Notes: This patient is a 68-year-old male with a past medical history of thrombocytopenia, leukopenia, aortic stenosis, and hypothyroid who presented to the hospital today for TAVR procedure. On his previous admission he was found to have significant thrombocytopenia and procedure was postponed. Hematology workup was completed and recommended transfusion of platelets 1 hour before procedure. Patient reports dyspnea on exertion, denies chest pain. Patient is being admitted today for TAVR. Postop care Monitor neurostatus and groin checks Advance diet as tolerated Repeat echocardiogram in a.m. Cardiology consulted at 1010 [facility] #:[id number] END OF REPORT [facility] 2023-11-21 10:42:00 [id number] [place] [address] PATIENT NAME: CHRIS VILLANUEVA ADMIT DATE: 11/21/23 ACCOUNT NO: [id number] ROOM NO: [id number] AGE: 68 REPORT TYPE: eELECTROCARDIOGRAM REPORT SEX: M ADMITTING PHYSICIAN:Chidi Garcia MD ATTENDING PHYSICIAN:Chidi Garcia MD Order: [id number] Test Reason : S/P TAVR Test Date/Time Stamp: SunNov 21 2023 10:42:40 Blood Pressure : / mmHG Vent. Rate : 082 BPM Atrial Rate : 082 BPM P-R Int : 242 ms QRS Dur : 108 ms QT Int : 430 ms P-R-T Axes : 055 -33 038 degrees QTc Int : 502 ms Sinus rhythm with 1st degree AV block with occasional premature ventricular complexes Left axis deviation T wave abnormality, consider anterolateral ischemia Prolonged QT Abnormal ECG When compared with ECG of 13-NOV-2023 08:49, No changes Confirmed by MD THOMPSON GERARD ([id number]) on 11/22/2023 8:29:11 PM Referred By: Dl Tong Confirmed by:MARYCARMEN THOMPSON MD at 2028 PATIENT NAME: CHRIS VILLANUEVA [facility] 2023-11-21 10:33:00 [id number] [place] [address] PATIENT NAME: CHRIS VILLANUEVA ADMIT DATE: 11/21/23 ACCOUNT NO: [id number] ROOM NO: [facility] AGE: 68 REPORT TYPE: OPERATIVE REPORT SEX: M ADMITTING PHYSICIAN:Chidi Garcia MD ATTENDING PHYSICIAN:Chidi Garcia MD OPERATION DATE: 11/21/2023 PREOPERATIVE DIAGNOSIS: POSTOPERATIVE DIAGNOSIS: PROCEDURE PERFORMED: Transcatheter aortic valve replacement using 29 mm Ike S3 Ultra valve via right common femoral artery access. INDICATION: Severe symptomatic aortic valve stenosis. ACCESS: 1. Right common femoral artery 16-Luxembourger closed with Manta closure device. 2. Right femoral vein 8-Luxembourger closed with [id number]-[id number] suture. 3. Left common femoral artery access 5-Luxembourger closed with Mynx closure device. COMPLICATIONS: None. ESTIMATED BLOOD LOSS: Less than 100 mL. PRIMARY HUB BORER: Dl Tong MD. PRIMARY SURGEON: Vibha Garcia MD. SPIRITUAL ADVISOR: ANESTHESIA: Monitored anesthesia care. DESCRIPTION OF PROCEDURE: After risks, benefits, and alternatives were explained, the patient agreed to proceed and signed informed consent. The patient was brought into the hybrid operating room, prepped and draped in the usual sterile fashion and monitored anesthesia care was applied. Subsequently, using a micropuncture kit ultrasound guidance and fluoroscopy, I accessed right common femoral vein, right common femoral artery and left common femoral artery. Placed 6-Luxembourger sheath in the right common femoral artery, an 8-Luxembourger Cordova sheath in the right common femoral vein, and a 5-Luxembourger in the left common femoral artery. Subsequently, took a number pigtail through the left femoral artery into the aortic root and took a balloon-tip pacemaker wire through the venous access into the right ventricle and into the intraventricular septum and pacemaker tested and secured in place. Then, I upgraded the right common femoral access to 16-Luxembourger Silveira sheath, gave systemic heparin to assure ACT level above 250 throughout the procedure. Took an AL1 catheter over J-wire into the aortic root. Using the straight wire, valve was crossed and using exchange PATIENT NAME: CHRIS VILLANUEVA J-wire, sent a pigtail catheter into the LV and measured simultaneous pressures in the LV and the aorta. Gradient was at 40 mmHg and the mean gradient. Then, I took the Safari wire into the LV, took the pigtail out, and the valve was prepped in the usual sterile fashion 29 mm and then advanced the valve over the Safari wire into the abdominal aorta. The valve was assembled and then advanced through the aortic arch and the aortic root to cross the aortic valve and in the deployment angle, under rapid pacing setting after a loss of pressure, valve was deployed successfully, and then delivery system and the Safari wires were removed outside the body and bedside echo showed the valve was seated well, no regurgitation and no complications. Then, took the number pigtail down to the distal aorta and performed a right groin angiogram and removed the Silveira sheath and used Manta closure device and the angiogram post-sheath removal showed no extravasation and complete seal of the right common femoral artery access. Then, I took the left common femoral artery sheath out and used Mynx closure device for closure with good hemostasis and then removed the venous sheath after removing the pacemaker wire and qlalya-[id number]-yunmm suture was used for closure with good hemostasis. The patient was sent to recovery in stable condition. CONCLUSION: Successful transcatheter aortic valve replacement using 29 mm Ike S3 Ultra valve via right common femoral artery access. PLAN: Admit for observation overnight on telemetry. Dictated By: Dl Tong MD Date Dictated: 11/21/2023 10:33:26 Date Transcribed: 11/21/2023 11:15:49 /RACHEL Receipt ID: [id number] Authenticated by Dl Tong MD On 12/04/2023 08:09:38 AM at 0809 PATIENT NAME: CHRIS VILLANUEVA [facility] 2023-11-16 12:37:00 [facility] ([facility]) Hospitalist Discharge Summary REPORT#:[id number] REPORT STATUS: Signed REPORT INITIALIZATION DATE:11/16/23 TIME: 1236 PATIENT: CHRIS VILLANUEVA UNIT #: [id number] ROOM/BED: [place] [id number] : [birth year] AGE: 68 SEX: M ATTEND: Tessa Lares MD ADM AUTHOR: Tessa Lares MD REPT SERVICE DT/TIME: 11/16/23 1237 * ALL edits or amendments must be made on the electronic/computer document * General Information Date of admission: Observation Start Date: 11/13/23 Date of admission: 11/14/23 Discharge date: 11/16/23 Admission diagnosis: thrombocytopenia severe aortic stenosis hypothyroid Discharge diagnosis: thrombocytopenia severe aortic stenosis hypothyroid Hospital course: thrombocytopenia severe aortic stenosis hypothyroid hematology consult TAVR-- reshedule -- 11/14 conttinue home med for hypothyroid 3- he feel well -- transfuse plaletet before procedure -- TAVR as cardiology /7- hemotology consult -- review -- transfuse platelet 1 h before TAVR he discharge home . he will schedule surgery nex sunday as surgeon Consultants: cardiology, cardiovascular surgery, hematology Free Text DxA P Notes Free text DxA P notes: thrombocytopenia severe aortic stenosis hypothyroid hematology consult TAVR-- reshedule -- 3/7 conttinue home med for hypothyroid 3/6- he feel well -- transfuse plaletet before procedure -- TAVR as cardiology 3/7- hemotology consult -- review -- transfuse platelet 1 h before TAVR Med Rec Med Rec Discharge meds: Continue taking these medications: FOLIC ACID (FOLIC ACID) 1 MG TAB 1 MILLIGRAM ORAL DAILY. ZOLPIDEM (AMBIEN) 10 MG TAB 10 MILLIGRAM ORAL BEDTIME. LEVOTHYROXINE (SYNTHROID) 100 MCG TAB 100 MICROGRAM ORAL DAILY. Objective VS/I O Last Documented: Result Date Time Pulse Ox 99 11/15 1136 B/P 103/64 11/15 1136 B/P Mean 76.9 11/15 1136 Temp 37.1 11/15 1136 Pulse 84 11/15 1136 Resp 18 11/15 1136 O2 Delivery Room air 11/15 032 24 hour I O ending at 0700: 11/15 0700 11/14 1900 Intake Total 200 600 Output Total 350 600 Balance -150 0 Intake, Oral 200 600 Number Voids 1 1 Output, Urine 350 600 Patient 93.7 kg Weight Weight Standing scale Measurement Method General appearance: alert, awake, oriented Head/Eyes: atraumatic, normal conjunctiva/sclera, normal eyelids/periorb. 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, normal speech, no motor deficits, no sensory deficits Skin: dry, intact, no rash Results Findings/Data: Laboratory Tests: 11/15 250 Chemistry Sodium (134 - 147 mEq/L) 138 Potassium (3.4 - 5.0 mEq/L) 3.8 Chloride (100 - 108 mEq/L) 103 Carbon Dioxide (21 - 33 mEq/l) 24 Anion Gap (0 - 20) 15 BUN (7 - 25 mg/dL) 16 Creatinine (0.6 - 1.3 mg/dL) 1.0 Glomerular Filtr Rate (80 - 90) 81.5 Glucose (77 - 141 mg/dL) 92 Calcium (8.0 - 10.5 mg/dL) 8.4 Magnesium (1.6 - 2.6 mg/dL) 1.79 Hematology WBC (4.5 - 11.0 x10 3/uL) 5.0 RBC (4.00 - 5.60 x10 6/uL) 3.29 L Hgb (12.5 - 16.9 g/dL) 12.5 Hct (37.5 - 50.7 %) 37.5 MCV (81.0 - 99.0 fL) 114.0 H MCH (27.0 - 33.0 pg) 38.0 H MCHC (33.0 - 37.0 g/dL) 33.3 RDW (11.5 - 14.5 %) 13.8 Plt Count (150 - 400 x10 3/uL) 34 L MPV (7.0 - 9.0 fL) 9.7 H Neut % (Auto) (56.0 - 77.0 %) 38.5 L Lymph % (Auto) (14.0 - 32.0 %) 40.0 H Custer % (Auto) (4.8 - 9.0 %) 15.7 H Eos % (Auto) (0.3 - 3.7 %) 4.8 H Baso % (Auto) (0.0 - 2.0 %) 0.6 Neut # (Auto) (2.0 - 7.6 x10 3/uL) 1.92 L Lymph # (Auto) (1.0 - 3.8 x10 3/uL) 1.99 Custer # (Auto) (0.1 - 0.8 x10 3/uL) 0.78 Eos # (Auto) (0.0 - 0.2 x10 3/uL) 0.24 H Baso # (Auto) (0.0 - 0.2 x10 3/uL) 0.03 Abs Immat Gran (auto) (0.00 - 0.03 x10 3/uL) 0.02 Immature Gran % (0.0 - 2.0 %) 0.4 Nucleated RBC % (0 - 0 %) 0.0 Nucleated RBCs # (Man) (0.0 - 0.1 x10 3/uL) 0.00 Immature Plt Fraction (0.9 - 11.2 %) 2.5 Discharge Instructions PCP Discharge to: Home/Self Care Additional Discharge Routines: PCP Follow-Up Diet: Cardiac Activity: As Tolerated Follow-up Appointments PCP follow-up: PCP: Saúl Damon MD PCP follow up timeframe: In 1-2 weeks Quality: Discharge Current Medications Current medication review: Current Medications Sig/Claus Start time Last Medication Dose Route Stop Time Status Admin Folic Acid 1 MG DAILY 11/13 0900 AC PO 02/11 0859 Levothyroxine Sodium 100 MCG DAILY 0600 11/13 0600 AC PO 02/11 0559 Zolpidem Tartrate 5 MG BEDTIME 11/12 2100 AC PO 02/10 205 Heparin Sodium/ 2,000 ML .STK-MED ONE 11/12 1046 DC Sodium Chloride IV Heparin Sodium/ 1,000 ML .STK-MED ONE 11/12 1046 DC Sodium Chloride IV Iopamidol 0 .STK-MED ONE 11/12 1046 DC IV Lidocaine HCl 0 .STK-MED ONE 11/12 1046 DC .ROUTE Lidocaine HCl 0 .STK-MED ONE 11/12 0858 DC .ROUTE Fentanyl Citrate 50 MCG PACU Q10MIN PRN PRN 11/12 0815 AC IV 11/12 1803 Hydralazine HCl 5 MG PACU Q10MIN PRN PRN 11/12 0815 AC IV 11/12 1803 Hydrocodone Bitart/ 1 TAB PACU ONCE 11/12 0815 CKD Acetaminophen PO 11/12 1803 Hydromorphone HCl 0.5 MG PACU Q5MIN PRN PRN 11/12 0815 AC IV 11/12 1803 Insulin Human Lispro 0 PACU ONCE PRN 11/12 0815 AC SUBQ 11/12 1803 Labetalol HCl 5 MG PACU Q10MIN PRN PRN 11/12 0815 AC IV 11/12 1803 Ondansetron HCl 4 MG PACU ONCE PRN 11/12 0815 AC IV 11/12 1803 Cefazolin Sodium 2 GM PREOP ONCALL 11/12 0500 CKD IV 11/19 0459 Sodium Chloride 20 ML ASDIR 11/12 0500 AC IV 02/10 0459 Vancomycin HCl 1,000 MG PREOP ONCALL 11/12 0500 CKD Sodium Chloride 250 ML IV 11/19 0459 Home Medications: FOLIC ACID 1 MG PO DAILY ZOLPIDEM (AMBIEN) 10 MG PO BEDTIME LEVOTHYROXINE (SYNTHROID) 100 MCG PO DAILY I attest that the foregoing medication list in the medical record is true, accurate, and complete to the best of my knowledge. at 2111 RPT #:[id number] END OF REPORT [facility] 2023-11-15 15:19:00 [facility] ([facility]) Cardiology Progress Note REPORT#:[id number] REPORT STATUS: Signed REPORT INITIALIZATION DATE:11/15/23 TIME: 1518 PATIENT: CHRIS VILLANUEVA UNIT #: [id number] ROOM/BED: [place] [id number] : 54 AGE: 68 SEX: M ATTEND: Tessa Lares MD ADM AUTHOR: Jesús Casas MD REPT SERVICE DT/TIME: 11/15/231518 * ALL edits or amendments must be made on the electronic/computer document * Subjective Free Text Subj Notes Free Text Subj Notes: Doing ok Objective General VS/I O: 24 hour I O ending at 0700: 11/14 0700 / 1900 Intake Total 200 700 Output Total 1500 Balance 200 -800 Intake, Oral 200 700 Number 1 Bowel Movements Number Voids 2 Output, Urine 1500 Patient 96.4 kg Weight Weight Standing scale Measurement Method Vital Signs: Date Time Temp Pulse Resp B/P B/P Pulse O2 O2 Flow FiO2 Mean Ox Delivery Rate 11/14 1103 98.2 91 15 108/67 80.5 99 Room air 11/14 0631 98.1 105 15 101/65 77 95 03/07 0500 93 94 / 0408 97.9 94 19 96/56 69.5 95 Room air / 0300 88 19 95 03/07 0100 90 20 94 03/07 0000 93 19 93 /06 2321 98.1 98 19 95/57 69.8 94 Room air 03/06 2300 88 20 91 03/06 2200 89 20 92 03/06 2100 98 97 03/06 2000 94 96 03/ 1900 99 96 / 1848 98.2 97 19 100/68 78.5 97 Room air / 1628 98.2 86 20 114/64 0.0 97 Room air PATIENT WEIGHT: Weight (lb): 212 Weight (oz): 8.41 Weight (kg): 96.400 Medications: Active Meds + DC'd Last 24 Hrs Folic Acid (FOLIC ACID) 1 MG DAILY PO Levothyroxine Sodium (Synthroid) 100 MCG DAILY 0600 PO Zolpidem Tartrate (AMBIEN) 5 MG BEDTIME PO Cefazolin Sodium (KEFZOL OR ANCEF) 2 GM PREOP ONCALL IV (CKD) Sodium Chloride (SODIUM CHLORIDE) 20 ML ASDIR IV Vancomycin HCl (VANCOMYCIN HCL) 1,000 MG PREOP ONCALL IV (CKD) Sodium Chloride (SODIUM CHLORIDE 0.9%) 250 ML Physical Exam General appearance: alert, awake, oriented Head/Eyes: PERRLA ENT: normal nose Neck: no JVD Cardiovascular: CV assessment: regular rate and rhythm, normal heart sounds Respiratory: clear to auscultation, no distress Abdomen: soft 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: alert, oriented X 3, normal speech Psychiatry: normal affect, normal judgment/insight, no hallucinations Diagnosis, Assessment Plan Free Text DxA P Notes Free Text DxA P Notes: 1. 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 with Plt transfusion one Jumbo plt 1 hour before TAVR 2. Thrombocytopenia: Monitor, trasfuse 1 Unit 1 hour before TAVR TAVR as in pt tomorrow or new [facility] as out pt, still trying to coordinate care at 1526 RPT #:[id number] END OF REPORT [facility] 2023-11-15 13:11:00 [facility] Hospitalist Progress Note REPORT#:[id number] REPORT STATUS: Signed REPORT INITIALIZATION DATE:11/15/23 TIME: 1311 PATIENT: CHRIS VILLANUEVA UNIT #: [id number] ROOM/BED: [place] [id number] : 54 AGE: 68 SEX: M ATTEND: Tessa Lares MD ADM AUTHOR: Tessa Lares MD REPT SERVICE DT/TIME: 11/15/23 1311 * ALL edits or amendments must be made on the electronic/computer document * Subjective Chief complaint: he is seen . no complaint TAVR -- as surgeon tranfuse platelet 1 h before procedure HPI: 68 years old male with PMH of hypothyroid and thrombocytopenia admitted to the hospital due to thrombocytopenia . 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 he feel well . no bleeding . he was admitted for TAVR. procedure cancelled due to thrombocytopenia . as patient his platelet was 39 --2 -3 years ago. he feel sob for a year . no cp no nausea no vomiting no fever no cough no diarrhea no dizziness no headache Review of Systems All systems rev neg: except as noted Objective General VS/I O: Vital Signs: Date Time Temp Pulse Resp B/P B/P Pulse O2 O2 Flow FiO2 Mean Ox Delivery Rate 03/ 1103 36.8 91 15 108/67 80.5 99 Room air 03/07 0631 36.7 105 15 101/65 77 95 03/07 0500 93 94 03/07 0408 36.6 94 19 96/56 69.5 95 Room air 03/07 0300 88 19 95 03/07 0100 90 20 94 03/07 0000 93 19 93 03/06 2321 36.7 98 19 95/57 69.8 94 Room air 03/06 2300 88 20 91 03/06 2200 89 20 92 03/06 2100 98 97 03/06 2000 94 96 03/06 1900 99 96 03/06 1848 36.8 97 19 100/68 78.5 97 Room air 03/06 1628 36.8 86 20 114/64 0.0 97 Room air 24 hour I O ending at 0700: 03/07 0700 03/06 1900 Intake Total 200 700 Output Total 1500 Balance 200 -800 Intake, Oral 200 700 Number 1 Bowel Movements Number Voids 2 Output, Urine 1500 Patient 96.4 kg Weight Weight Standing scale Measurement Method PATIENT WEIGHT: Weight (lb): 212 Weight (oz): 8.41 Weight (kg): 96.400 Medications: Active Meds + DC'd Last 24 Hrs Folic Acid (FOLIC ACID) 1 MG DAILY PO Levothyroxine Sodium (Synthroid) 100 MCG DAILY 0600 PO Zolpidem Tartrate (AMBIEN) 5 MG BEDTIME PO Cefazolin Sodium (KEFZOL OR ANCEF) 2 GM PREOP ONCALL IV (CKD) Sodium Chloride (SODIUM CHLORIDE) 20 ML ASDIR IV Vancomycin HCl (VANCOMYCIN HCL) 1,000 MG PREOP ONCALL IV (CKD) Sodium Chloride (SODIUM CHLORIDE 0.9%) 250 ML Physical Exam General appearance: alert, awake, oriented Head/Eyes: atraumatic, normal conjunctiva/sclera, normal eyelids/periorb. 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, normal speech, no motor deficits, no sensory deficits Skin: dry, intact, no rash Diagnosis, Assessment Plan Consultants: cardiology, cardiovascular surgery, hematology Free Text DxA P Notes Free text DxA P notes: thrombocytopenia severe aortic stenosis hypothyroid hematology consult TAVR-- reshedule -- 11/14 conttinue home med for hypothyroid 11/13- he feel well -- transfuse plaletet before procedure -- TAVR as cardiology 11/14- hemotology consult -- review -- transfuse platelet 1 h before TAVR Quality: Gen Med Crit Care Current Medications Current medication review: Current Medications Sig/Claus Start time Last Medication Dose Route Stop Time Status Admin Folic Acid 1 MG DAILY 11/13 0900 AC PO 02/11 0859 Levothyroxine Sodium 100 MCG DAILY 0600 11/13 0600 AC PO 02/11 0559 Zolpidem Tartrate 5 MG BEDTIME 11/12 2100 AC PO 02/10 205 Heparin Sodium/ 2,000 ML .STK-MED ONE 11/12 1046 DC Sodium Chloride IV Heparin Sodium/ 1,000 ML .STK-MED ONE 11/12 1046 DC Sodium Chloride IV Iopamidol 0 .STK-MED ONE 11/12 1046 DC IV Lidocaine HCl 0 .STK-MED ONE 11/12 1046 DC .ROUTE Lidocaine HCl 0 .STK-MED ONE 11/12 0858 DC .ROUTE Fentanyl Citrate 50 MCG PACU Q10MIN PRN PRN 11/12 0815 AC IV 11/12 1803 Hydralazine HCl 5 MG PACU Q10MIN PRN PRN 11/12 0815 AC IV 11/12 1803 Hydrocodone Bitart/ 1 TAB PACU ONCE 11/12 0815 CKD Acetaminophen PO 11/12 1803 Hydromorphone HCl 0.5 MG PACU Q5MIN PRN PRN 11/12 08 AC IV 11/12 180 Insulin Human Lispro 0 PACU ONCE PRN 11/12 814 AC SUBQ 11/12 180 Labetalol HCl 5 MG PACU Q10MIN PRN PRN 11/12 0815 AC IV 11/12 180 Ondansetron HCl 4 MG PACU ONCE PRN 11/12 0815 AC IV 11/12 180 Cefazolin Sodium 2 GM PREOP ONCALL 11/12 0500 CKD IV 11/19 045 Sodium Chloride 20 ML ASDIR 11/12 0500 AC IV 02/10 045 Vancomycin HCl 1,000 MG PREOP ONCALL 11/12 050 CKD Sodium Chloride 250 ML IV 11/19 045 Home Medications: FOLIC ACID 1 MG PO DAILY ZOLPIDEM (AMBIEN) 10 MG PO BEDTIME LEVOTHYROXINE (SYNTHROID) 100 MCG PO DAILY I attest that the foregoing medication list in the medical record is true, accurate, and complete to the best of my knowledge. at 1449 RPT #:[id number] END OF REPORT [facility] 2023-11-15 12:35:00 [facility] Marcelino/Oncology Progress Note REPORT#:[id number] REPORT STATUS: Signed REPORT INITIALIZATION DATE:11/15/23 TIME: 123 PATIENT: CHRIS VILLANUEVA UNIT #: [id number] ROOM/BED: [place] [id number] : 54 AGE: 68 SEX: M ATTEND: Tessa Lares MD ADM AUTHOR: Ahsan Rios MD REPT SERVICE DT/TIME: 11/15/23 1235 * ALL edits or amendments must be made on the electronic/computer document * Subjective Chief Complaint: Abd sono completed- feeling well this AM Objective Physical Exam VS: Vital Signs Date Temp Pulse Resp B/P B/P Mean Pulse Ox FiO2 11/13-11/14 36.6-36.8 86-105 15-20 95-114/56-68 0.0-80.5 91-99 Last Documented: Result Date Time Pulse Ox 99 11/14 1103 B/P 108/67 11/14 1103 B/P Mean 80.5 11/14 1103 O2 Delivery Room air 11/143 Temp 36.8 11/14 1103 Pulse 91 11/14 1103 Resp 15 11/14 1103 General appearance: alert, awake, oriented HEENT: anicteric, atraumatic Neck: supple/no meningismus, no lymphadenopathy Cardiovascular: regular rate and rhythm Respiratory: clear to auscultation Abdomen: non-tender, normal bowel sounds, soft Extremities: moves all 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: alert, oriented X 3 skin dry, intact Current Medications Medications: Active Meds + DC'd Last 24 Hrs Folic Acid (FOLIC ACID) 1 MG DAILY PO Levothyroxine Sodium (Synthroid) 100 MCG DAILY 0600 PO Zolpidem Tartrate (AMBIEN) 5 MG BEDTIME PO Cefazolin Sodium (KEFZOL OR ANCEF) 2 GM PREOP ONCALL IV (CKD) Sodium Chloride (SODIUM CHLORIDE) 20 ML ASDIR IV Vancomycin HCl (VANCOMYCIN HCL) 1,000 MG PREOP ONCALL IV (CKD) Sodium Chloride (SODIUM CHLORIDE 0.9%) 250 ML Diagnosis, Assessment Plan Consultants: cardiology, cardiovascular surgery, hematology Free Text DxA P Notes Free Text DxA P Notes: ASSESSMENT: 1. Thrombocytopenia. 2. Leukopenia along with macrocytosis. 3. Aortic stenosis. 4. Hypothyroidism. PLAN: -Remarkably, despite heavy ETOH intake, liver normal. Spleen as well. Workup for panyctopenia also negative. As such, primary bone marrow etiology such as MDS should be considered- discussed with patient, outpatient bone marrow aspiration and biopsy -TAVR planned for 11/15- discussed with Dr. Casas- 1 jumbo pack platelets 1 hour prior to procedure for goal plt count 50K- Thrombocytopenia not likely to be reversed given chronic findings dating back to 2020 and bone marrow issues. -Other medical management per primary team. Ahsan Rios MD at 1241 RPT #:[id number] END OF REPORT [facility] 2023-11-14 17:58:00 [facility] ([facility]) Cardiology Progress Note REPORT#:[id number] REPORT STATUS: Signed REPORT INITIALIZATION DATE:11/14/23 TIME: 175 PATIENT: CHRIS VILLANUEVA UNIT #: [id number] [place]ED: [facility] : [birth year] AGE: 68 SEX: M ATTEND: Tessa Lares MD ADM AUTHOR: Jesús Casas MD REPT SERVICE DT/TIME: 11/14/231757 * ALL edits or amendments must be made on the electronic/computer document * Subjective Free Text Subj Notes Free Text Subj Notes: doing ok Objective General VS/I O: 24 hour I O ending at 0700: 11/13 0700 11/12 1900 Intake Total 240 200 Output Total Balance 240 200 Intake, Oral 240 200 Number 1 Bowel Movements Number Voids 4 Patient 95.4 kg 100 kg Weight Weight Standing scale Stated/Reported Measurement Method Vital Signs: Date Time Temp Pulse Resp B/P B/P Pulse O2 O2 Flow FiO2 Mean Ox Delivery Rate 11/13 1628 98.2 86 20 114/64 0.0 97 Room air 03/06 1206 98.2 98 20 104/62 0.0 96 Room air 03/06 0738 98.2 93 20 109/62 0.0 96 Room air 03/06 0400 85 19 90/55 68 03/06 0312 98.1 97 14 103/70 0.0 94 Room air 03/06 0310 106 22 103/70 81 03/06 0001 98.1 98 14 103/64 0.0 93 Room air 03/06 0000 89 25 103/64 78 03/05 2238 98 23 106/60 78 03/05 2132 96 27 120/63 86 97 03/05 1803 98.4 102 13 108/64 0.0 97 Room air PATIENT WEIGHT: Weight (lb): 210 Weight (oz): 5.14 Weight (kg): 95.400 Medications: Active Meds + DC'd Last 24 Hrs Folic Acid (FOLIC ACID) 1 MG DAILY PO Levothyroxine Sodium (Synthroid) 100 MCG DAILY 0600 PO Zolpidem Tartrate (AMBIEN) 5 MG BEDTIME PO Zolpidem Tartrate (AMBIEN) 10 MG BEDTIME PO (CAN) Fentanyl Citrate (SUBLIMAZE) 50 MCG PACU Q10MIN PRN PRN IV (DC) Hydralazine HCl (APRESOLINE) 5 MG PACU Q10MIN PRN PRN IV (DC) Hydrocodone Bitart/Acetaminophen (NORCO 5/325) 1 TAB PACU ONCE PO (DC) Hydromorphone HCl (DILAUDID) 0.5 MG PACU Q5MIN PRN PRN IV (DC) Insulin Human Lispro (HUMALOG) 0 PACU ONCE PRN SUBQ (DC) Labetalol HCl (labetalol) 5 MG PACU Q10MIN PRN PRN IV (DC) Ondansetron HCl (ZOFRAN) 4 MG PACU ONCE PRN IV (DC) Cefazolin Sodium (KEFZOL OR ANCEF) 2 GM PREOP ONCALL IV (CKD) Sodium Chloride (SODIUM CHLORIDE) 20 ML ASDIR IV Vancomycin HCl (VANCOMYCIN HCL) 1,000 MG PREOP ONCALL IV (CKD) Sodium Chloride (SODIUM CHLORIDE 0.9%) 250 ML Results Findings/Data: Laboratory Tests 11/135 0325 Chemistry Sodium (134 - 147 mEq/L) 137 Potassium (3.4 - 5.0 mEq/L) 3.8 Chloride (100 - 108 mEq/L) 105 Carbon Dioxide (21 - 33 mEq/l) 23 Anion Gap (0 - 20) 13 BUN (7 - 25 mg/dL) 11 Creatinine (0.6 - 1.3 mg/dL) 0.8 Glomerular Filtr Rate (80 - 90) 95.8 H Glucose (77 - 141 mg/dL) 99 Calcium (8.0 - 10.5 mg/dL) 9.7 Magnesium (1.6 - 2.6 mg/dL) 1.61 Vitamin B12 (193 - 986 pg/mL) 1144 H Folate (3.1 - 17.5 ng/mL) 19.5 H Laboratory Tests 11/13 0324 Hematology WBC (4.5 - 11.0 x10 3/uL) 4.6 RBC (4.00 - 5.60 x10 6/uL) 3.42 L Hgb (12.5 - 16.9 g/dL) 13.2 Hct (37.5 - 50.7 %) 38.2 MCV (81.0 - 99.0 fL) 111.7 H MCH (27.0 - 33.0 pg) 38.6 H MCHC (33.0 - 37.0 g/dL) 34.6 RDW (11.5 - 14.5 %) 14.1 Plt Count (150 - 400 x10 3/uL) 39 L MPV (7.0 - 9.0 fL) 9.4 H Neut % (Auto) (56.0 - 77.0 %) 46.3 L Lymph % (Auto) (14.0 - 32.0 %) 34.7 H Custer % (Auto) (4.8 - 9.0 %) 14.7 H Eos % (Auto) (0.3 - 3.7 %) 3.7 Baso % (Auto) (0.0 - 2.0 %) 0.2 Neut # (Auto) (2.0 - 7.6 x10 3/uL) 2.15 Lymph # (Auto) (1.0 - 3.8 x10 3/uL) 1.61 Custer # (Auto) (0.1 - 0.8 x10 3/uL) 0.68 Eos # (Auto) (0.0 - 0.2 x10 3/uL) 0.17 Baso # (Auto) (0.0 - 0.2 x10 3/uL) 0.01 Abs Immat Gran (auto) (0.00 - 0.03 x10 3/uL) 0.02 Immature Gran % (0.0 - 2.0 %) 0.4 Nucleated RBC % (0 - 0 %) 0.0 Nucleated RBCs # (Man) (0.0 - 0.1 x10 3/uL) 0.00 Immature Plt Fraction (0.9 - 11.2 %) 2.2 Laboratory Tests 11/13 032 Serology Hep Bs Antigen (NonReactive INDEX) NON REACTIVE Hepatitis C Antibody (NON REACT. INDEX) NON REACTIVE HIV 1 2 Antibody Screen (Nonreactive) Nonreactive Laboratory Tests 11/13 324 Chemistry Magnesium (1.6 - 2.6 mg/dL) 1.61 Radiology data: Recent Impressions: ULTRASOUND - US ABDOMEN COMPLETE 11/13 944 Report Impression - Status: SIGNED Entered: 11/14/2023 1012 IMPRESSION: Abdominal ultrasound within normal sonographic limits. I Impression By: PabloABDash - Leo Quintanilla D.O. General appearance: alert, awake, oriented Head/Eyes: PERRLA ENT: normal nose Neck: no JVD Cardiovascular: CV assessment: regular rate and rhythm, aortic stenosis murmur Respiratory: clear to auscultation, no distress Abdomen: soft Lower extremity: LE assessment: no cyanosis, no edema 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: alert, oriented X 3, normal speech Skin: dry, intact Psychiatry: normal affect, normal judgment/insight, normal mood, no hallucinations Diagnosis, Assessment Plan Free Text DxA P Notes Free Text DxA P Notes: 1. 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 with Plt transfusion one Jumbo plt 1 hour before TAVR 2. Thrombocytopenia: Monitor, trasfuse 1 Unit 1 hour before TAVR at 1805 RPT #:[id number] END OF REPORT [facility] 2023-11-14 14:01:00 [facility] Cardiothoracic Surgery Consult REPORT#:[id number] REPORT STATUS: Signed REPORT INITIALIZATION DATE:11/14/23 TIME: 140 PATIENT: CHRIS VILLANUEVA UNIT #: [id number] ROOM/BED: [place] [id number] : [birth year] AGE: 68 SEX: M ATTEND: Tessa Lares MD ADM AUTHOR: Chidi Garcia MD REPT SERVICE DT/TIME: 11/14/23 1401 * ALL edits or amendments must be made on the electronic/computer document * History of Present Illness HPI Chief complaint: Severe aortic stenosis PCP: PCP: Saúl Damon MD HPI: This patient is a 68-year-old male with a past medical history of thrombocytopenia, leukopenia, aortic stenosis, and hypothyroid who presented to the hospital today for TAVR procedure. Upon admission he was found to have thrombocytopenia. Procedure was postponed. Patient was seen by hematology and undergone workup. History Past Medical History: Reports: Alcoholism/subst abuse. Alcohol Use Alcohol use Drug Use Denies recreational drugs Smoking status for patients 13 years old or older: Never Smoker Medications: Home Medications: Medication Dose/Rte/Freq Days Qty Entered Last Max Daily Dose Reviewed FOLIC ACID 1 MG PO DAILY 11/12/23 11/13/23 Strength: 1 MG TAB 1102 0822 ZOLPIDEM (AMBIEN) 10 MG PO BEDTIME 11/12/23 11/13/23 Strength: 10 MG TAB 1102 0822 LEVOTHYROXINE 100 MCG PO DAILY 11/12/23 11/13/23 (SYNTHROID) 1103 0822 Strength: 100 MCG TAB Current Hospital Medications: Anti-Infective Agents Sig/Claus Start time Last Medication Dose Route Stop Time Status Admin Cefazolin Sodium 2 GM PREOP ONCALL 11/12 050 CKD (KEFZOL OR ANCEF) IV 11/19 045 Vancomycin HCl 1,000 MG PREOP ONCALL 11/12 050 CKD (VANCOMYCIN HCL) IV 11/19 045 Sodium Chloride 250 ML (SODIUM CHLORIDE 0.9%) Cardiovascular Drugs Sig/Claus Start time Last Medication Dose Route Stop Time Status Admin Hydralazine HCl 5 MG PACU Q10MIN PRN PRN 11/12 0815 DC (APRESOLINE) IV 11/12 180 Labetalol HCl 5 MG PACU Q10MIN PRN PRN 11/12 0815 DC (labetalol) IV 11/12 1803 Central Nervous System Agents Sig/Claus Start time Last Medication Dose Route Stop Time Status Admin Zolpidem Tartrate 5 MG BEDTIME 11/12 2100 AC 11/12 (AMBIEN) PO 02/10 2059 2133 Zolpidem Tartrate 10 MG BEDTIME 11/12 2100 CAN (AMBIEN) PO 02/10 2059 Fentanyl Citrate 50 MCG PACU Q10MIN PRN PRN 11/12 0815 DC (SUBLIMAZE) IV 11/12 1803 Hydrocodone Bitart/ 1 TAB PACU ONCE 11/12 0815 DC Acetaminophen PO 11/12 180 (NORCO 5/325) Hydromorphone HCl 0.5 MG PACU Q5MIN PRN PRN 11/12 0815 DC (DILAUDID) IV 11/12 1803 Electrolytic, Caloric, And Tea Sig/Claus Start time Last Medication Dose Route Stop Time Status Admin Sodium Chloride 20 ML ASDIR 11/12 0500 AC (SODIUM CHLORIDE) IV 02/10 0459 Gastrointestinal Drugs Sig/Claus Start time Last Medication Dose Route Stop Time Status Admin Ondansetron HCl 4 MG PACU ONCE PRN 11/12 0815 DC (ZOFRAN) IV 11/12 1803 Hormones And Synthetic Substit Sig/Claus Start time Last Medication Dose Route Stop Time Status Admin Levothyroxine Sodium 100 MCG DAILY 0600 11/13 0600 AC 11/13 (Synthroid) PO 02/11 0559 0533 Insulin Human Lispro 0 PACU ONCE PRN 11/12 0815 DC (HUMALOG) SUBQ 11/12 1803 Vitamins Sig/Claus Start time Last Medication Dose Route Stop Time Status Admin Folic Acid 1 MG DAILY 11/13 0900 AC 11/13 (FOLIC ACID) PO 02/11 0859 0942 Allergies: Coded Allergies: Penicillins (Severe, SINCE CHILDHOOD 11/12/23) Review of Systems Review of Systems Additional notes: Constitutional: Negative for fever, chills, weight loss Skin: Negative for rash, negative for swelling, negative for any laceration HEENT: Denies hearing loss, denies any ear ringing, denies any earache, denies any sore throat Respiratory: Denies dyspnea on exertion, denies hemoptysis denies any cough, denies any shortness of breath Cardiac: Denies chest pain, denies palpitations, denies orthopnea GI: Denies constipation, denies diarrhea : Denies hematuria, denies dysuria, denies flank pain Musculoskeletal: Denies any joint pain, denies any joint swelling, denies any myalgia Hematologic: Denies any easy bruising, denies any bleeding Endocrine: denies any night sweats, denies polyuria OR polydipsia Neurologic: Denies any lightheaded, denies any headache, denies any confusion, denies any dizziness All systems rev neg: except as marked Objective Physical Exam VS/I O: Last Documented: Result Date Time Pulse Ox 96 11/13 1206 B/P 104/62 11/13 1206 B/P Mean 0.0 11/13 1206 O2 Delivery Room air 11/13 120 Temp 36.8 11/13 120 Pulse 98 11/13 1206 Resp 20 11/13 1206 24 hour I O ending at 0700: 11/13 0700 11/12 1900 Intake Total 240 200 Output Total Balance 240 200 Intake, Oral 240 200 Number 1 Bowel Movements Number Voids 4 Patient 95.4 kg 100 kg Weight Weight Standing scale Stated/Reported Measurement Method PATIENT WEIGHT: Weight (lb): 210 Weight (oz): 5.14 Weight (kg): 95.400 Results Findings/Data: Laboratory Tests 11/13 0325 Chemistry Sodium (134 - 147 mEq/L) 137 Potassium (3.4 - 5.0 mEq/L) 3.8 Chloride (100 - 108 mEq/L) 105 Carbon Dioxide (21 - 33 mEq/l) 23 Anion Gap (0 - 20) 13 BUN (7 - 25 mg/dL) 11 Creatinine (0.6 - 1.3 mg/dL) 0.8 Glomerular Filtr Rate (80 - 90) 95.8 H Glucose (77 - 141 mg/dL) 99 Calcium (8.0 - 10.5 mg/dL) 9.7 Magnesium (1.6 - 2.6 mg/dL) 1.61 Vitamin B12 (193 - 986 pg/mL) 1144 H Folate (3.1 - 17.5 ng/mL) 19.5 H Laboratory Tests 11/14 323 Hematology WBC (4.5 - 11.0 x10 3/uL) 4.6 RBC (4.00 - 5.60 x10 6/uL) 3.42 L Hgb (12.5 - 16.9 g/dL) 13.2 Hct (37.5 - 50.7 %) 38.2 MCV (81.0 - 99.0 fL) 111.7 H MCH (27.0 - 33.0 pg) 38.6 H MCHC (33.0 - 37.0 g/dL) 34.6 RDW (11.5 - 14.5 %) 14.1 Plt Count (150 - 400 x10 3/uL) 39 L MPV (7.0 - 9.0 fL) 9.4 H Neut % (Auto) (56.0 - 77.0 %) 46.3 L Lymph % (Auto) (14.0 - 32.0 %) 34.7 H Custer % (Auto) (4.8 - 9.0 %) 14.7 H Eos % (Auto) (0.3 - 3.7 %) 3.7 Baso % (Auto) (0.0 - 2.0 %) 0.2 Neut # (Auto) (2.0 - 7.6 x10 3/uL) 2.15 Lymph # (Auto) (1.0 - 3.8 x10 3/uL) 1.61 Custer # (Auto) (0.1 - 0.8 x10 3/uL) 0.68 Eos # (Auto) (0.0 - 0.2 x10 3/uL) 0.17 Baso # (Auto) (0.0 - 0.2 x10 3/uL) 0.01 Abs Immat Gran (auto) (0.00 - 0.03 x10 3/uL) 0.02 Immature Gran % (0.0 - 2.0 %) 0.4 Nucleated RBC % (0 - 0 %) 0.0 Nucleated RBCs # (Man) (0.0 - 0.1 x10 3/uL) 0.00 Immature Plt Fraction (0.9 - 11.2 %) 2.2 Laboratory Tests 11/13 0325 Serology Hep Bs Antigen (NonReactive INDEX) NON REACTIVE Hepatitis C Antibody (NON REACT. INDEX) NON REACTIVE HIV 1 2 Antibody Screen (Nonreactive) Nonreactive Radiology data: Recent Impressions: ULTRASOUND - US ABDOMEN COMPLETE 11/13 0845 Report Impression - Status: SIGNED Entered: 11/14/2023 1012 IMPRESSION: Abdominal ultrasound within normal sonographic limits. I Impression By: [email or web address] - Leo Quintanilla D.O. Results: labs reviewed, vital signs reviewed, vital signs stable, current med profile rev'd Free Text Obj Notes Free Text Obj Notes: General: well nourished, well groomed, no acute distress. HEENT: conjunctiva clear, extraocular movement intact, PERRLA, Neck: no, JVD, trachea midline, no, lymphadenopathy, neck supple, normal ROM. Respiratory: Clear to auscultation, no distress. Cardiovascular: regular rate and rhythm, S1, S2, normal, without murmurs, rubs or gallops, pulses, palpable, symetric. Abdomen: Soft, non tender. No rebound. No guarding Extremities: dry, moves all. Musculoskeletal: Full range of motion, no CVA tenderness, no muscle spasm Skin: warm, dry, no, lesions, rash. Neurologic: Alert and oriented x3. Psychiatric: affect and demeanor normal Diagnosis, Assessment Plan Free Text A P: This patient is a 68-year-old male with a past medical history of thrombocytopenia, leukopenia, aortic stenosis, and hypothyroid who presented to the hospital today for TAVR procedure. Upon admission he was found to have thrombocytopenia. Procedure was postponed. Patient was seen by hematology and undergone workup. Plan- Patient to be rescheduled for TAVR after improved platelet with hematology recommendations. Consultants: hematology Quality: Trauma Gen Surg Current Medications Current medication review: Current Medications Sig/Claus Start time Last Medication Dose Route Stop Time Status Admin Folic Acid 1 MG DAILY 11/13 0900 AC PO 02/11 0859 Levothyroxine Sodium 100 MCG DAILY 00 11/13 0600 AC PO 02/11 0559 Zolpidem Tartrate 5 MG BEDTIME 11/12 2100 AC PO 02/10 205 Heparin Sodium/ 2,000 ML .STK-MED ONE 11/12 1046 DC Sodium Chloride IV Heparin Sodium/ 1,000 ML .STK-MED ONE 11/12 1046 DC Sodium Chloride IV Iopamidol 0 .STK-MED ONE 11/12 1046 DC IV Lidocaine HCl 0 .STK-MED ONE 11/12 1046 DC .ROUTE Lidocaine HCl 0 .STK-MED ONE 11/12 0858 DC .ROUTE Fentanyl Citrate 50 MCG PACU Q10MIN PRN PRN 11/12 0815 AC IV 11/12 1803 Hydralazine HCl 5 MG PACU Q10MIN PRN PRN 11/12 0815 AC IV 11/12 1803 Hydrocodone Bitart/ 1 TAB PACU ONCE 11/12 0815 CKD Acetaminophen PO 11/12 1803 Hydromorphone HCl 0.5 MG PACU Q5MIN PRN PRN 11/12 0815 AC IV 11/12 1803 Insulin Human Lispro 0 PACU ONCE PRN 11/12 0815 AC SUBQ 11/12 1803 Labetalol HCl 5 MG PACU Q10MIN PRN PRN 11/12 0815 AC IV 11/12 1803 Ondansetron HCl 4 MG PACU ONCE PRN 11/12 0815 AC IV 11/12 1803 Cefazolin Sodium 2 GM PREOP ONCALL 11/12 0500 CKD IV 11/19 0459 Sodium Chloride 20 ML ASDIR 11/12 0500 AC IV 02/10 0459 Vancomycin HCl 1,000 MG PREOP ONCALL 11/12 0500 CKD Sodium Chloride 250 ML IV 11/19 0459 Home Medications: FOLIC ACID 1 MG PO DAILY ZOLPIDEM (AMBIEN) 10 MG PO BEDTIME LEVOTHYROXINE (SYNTHROID) 100 MCG PO DAILY I attest that the foregoing medication list in the medical record is true, accurate, and complete to the best of my knowledge. at 0955 RPT #:[id number] END OF REPORT [facility] 2023-11-14 12:17:00 [facility] Hospitalist Progress Note REPORT#:[id number] REPORT STATUS: Signed REPORT INITIALIZATION DATE:11/14/23 TIME: 1216 PATIENT: CHRIS VILLANUEVA UNIT #: [id number] ROOM[address]BED[address] : 54 AGE: 68 SEX: M ATTEND: Tessa Lares MD ADM AUTHOR: Tessa Lares MD REPT SERVICE DT/TIME: 11/14/23 1217 * ALL edits or amendments must be made on the electronic/computer document * Subjective Chief complaint: she feel well . HPI: 68 years old male with PMH of hypothyroid and thrombocytopenia admitted to the hospital due to thrombocytopenia . 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 he feel well . no bleeding . he was admitted for TAVR. procedure cancelled due to thrombocytopenia . as patient his platelet was 39 --2 -3 years ago. he feel sob for a year . no cp no nausea no vomiting no fever no cough no diarrhea no dizziness no headache Review of Systems Respiratory: Reports: RAE (dyspnea on exertion), SOB. Cardiovascular: Reports: RAE (dyspnea on exertion). All systems rev neg: except as noted Objective General VS/I O: Vital Signs: Date Time Temp Pulse Resp B/P B/P Pulse O2 O2 Flow FiO2 Mean Ox Delivery Rate 11/13 1206 36.8 98 20 104/62 0.0 96 Room air / 0738 36.8 93 20 109/62 0.0 96 Room air / 0400 85 19 90/55 68 03/06 0312 36.7 97 14 103/70 0.0 94 Room air / 0310 106 22 103/70 81 03/ 0001 36.7 98 14 103/64 0.0 93 Room air 03/ 0000 89 25 103/64 78 / 2238 98 23 106/60 78 11/12 2132 96 27 120/63 86 97 / 1803 36.9 102 13 108/64 0.0 97 Room air / 1515 36.8 92 18 103/62 0.0 96 24 hour I O ending at 0700: 11/13 0700 11/12 1900 Intake Total 240 200 Output Total Balance 240 200 Intake, Oral 240 200 Number 1 Bowel Movements Number Voids 4 Patient 95.4 kg 100 kg Weight Weight Standing scale Stated/Reported Measurement Method PATIENT WEIGHT: Weight (lb): 210 Weight (oz): 5.14 Weight (kg): 95.400 Medications: Active Meds + DC'd Last 24 Hrs Folic Acid (FOLIC ACID) 1 MG DAILY PO Levothyroxine Sodium (Synthroid) 100 MCG DAILY 0600 PO Zolpidem Tartrate (AMBIEN) 5 MG BEDTIME PO Zolpidem Tartrate (AMBIEN) 10 MG BEDTIME PO (CAN) Fentanyl Citrate (SUBLIMAZE) 50 MCG PACU Q10MIN PRN PRN IV (DC) Hydralazine HCl (APRESOLINE) 5 MG PACU Q10MIN PRN PRN IV (DC) Hydrocodone Bitart/Acetaminophen (NORCO 5/325) 1 TAB PACU ONCE PO (DC) Hydromorphone HCl (DILAUDID) 0.5 MG PACU Q5MIN PRN PRN IV (DC) Insulin Human Lispro (HUMALOG) 0 PACU ONCE PRN SUBQ (DC) Labetalol HCl (labetalol) 5 MG PACU Q10MIN PRN PRN IV (DC) Ondansetron HCl (ZOFRAN) 4 MG PACU ONCE PRN IV (DC) Cefazolin Sodium (KEFZOL OR ANCEF) 2 GM PREOP ONCALL IV (CKD) Sodium Chloride (SODIUM CHLORIDE) 20 ML ASDIR IV Vancomycin HCl (VANCOMYCIN HCL) 1,000 MG PREOP ONCALL IV (CKD) Sodium Chloride (SODIUM CHLORIDE 0.9%) 250 ML Physical Exam General appearance: alert, awake, oriented Head/Eyes: atraumatic, normal conjunctiva/sclera, normal eyelids/periorb. 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, normal speech, no motor deficits, no sensory deficits Skin: dry, intact, no rash Results Findings/Data: Laboratory Tests 11/13 11/13 0325 0325 Chemistry Sodium (134 - 147 mEq/L) 137 Potassium (3.4 - 5.0 mEq/L) 3.8 Chloride (100 - 108 mEq/L) 105 Carbon Dioxide (21 - 33 mEq/l) 23 Anion Gap (0 - 20) 13 BUN (7 - 25 mg/dL) 11 Creatinine (0.6 - 1.3 mg/dL) 0.8 Glomerular Filtr Rate (80 - 90) 95.8 H Glucose (77 - 141 mg/dL) 99 Calcium (8.0 - 10.5 mg/dL) 9.7 Magnesium (1.6 - 2.6 mg/dL) 1.61 Vitamin B12 (193 - 986 pg/mL) 1144 H Folate (3.1 - 17.5 ng/mL) 19.5 H Laboratory Tests 11/13 0324 Hematology WBC (4.5 - 11.0 x10 3/uL) 4.6 RBC (4.00 - 5.60 x10 6/uL) 3.42 L Hgb (12.5 - 16.9 g/dL) 13.2 Hct (37.5 - 50.7 %) 38.2 MCV (81.0 - 99.0 fL) 111.7 H MCH (27.0 - 33.0 pg) 38.6 H MCHC (33.0 - 37.0 g/dL) 34.6 RDW (11.5 - 14.5 %) 14.1 Plt Count (150 - 400 x10 3/uL) 39 L MPV (7.0 - 9.0 fL) 9.4 H Neut % (Auto) (56.0 - 77.0 %) 46.3 L Lymph % (Auto) (14.0 - 32.0 %) 34.7 H Custer % (Auto) (4.8 - 9.0 %) 14.7 H Eos % (Auto) (0.3 - 3.7 %) 3.7 Baso % (Auto) (0.0 - 2.0 %) 0.2 Neut # (Auto) (2.0 - 7.6 x10 3/uL) 2.15 Lymph # (Auto) (1.0 - 3.8 x10 3/uL) 1.61 Custer # (Auto) (0.1 - 0.8 x10 3/uL) 0.68 Eos # (Auto) (0.0 - 0.2 x10 3/uL) 0.17 Baso # (Auto) (0.0 - 0.2 x10 3/uL) 0.01 Abs Immat Gran (auto) (0.00 - 0.03 x10 3/uL) 0.02 Immature Gran % (0.0 - 2.0 %) 0.4 Nucleated RBC % (0 - 0 %) 0.0 Nucleated RBCs # (Man) (0.0 - 0.1 x10 3/uL) 0.00 Immature Plt Fraction (0.9 - 11.2 %) 2.2 Laboratory Tests 11/13 0325 Serology Hep Bs Antigen (NonReactive INDEX) NON REACTIVE Hepatitis C Antibody (NON REACT. INDEX) NON REACTIVE HIV 1 2 Antibody Screen (Nonreactive) Nonreactive Radiology data: Recent Impressions: ULTRASOUND - US ABDOMEN COMPLETE 11/13 0945 Report Impression - Status: SIGNED Entered: 11/14/2023 1012 IMPRESSION: Abdominal ultrasound within normal sonographic limits. I Impression By: [email or web address] Marco Quintanilla D.O. Diagnosis, Assessment Plan Consultants: cardiology, cardiovascular surgery, hematology Free Text DxA P Notes Free text DxA P notes: thrombocytopenia severe aortic stenosis hypothyroid hematology consult TAVR-- reshedule -- 11/14 conttinue home med for hypothyroid 11/13- he feel well -- transfuse plaletet before procedure -- TAVR as cardiology Quality: Gen Med Crit Care Current Medications Current medication review: Current Medications Sig/Claus Start time Last Medication Dose Route Stop Time Status Admin Folic Acid 1 MG DAILY 11/13 09 AC PO 02/11 0859 Levothyroxine Sodium 100 MCG DAILY 0611/13 0600 AC PO 02/11 0559 Zolpidem Tartrate 5 MG BEDTIME 11/12 2100 AC PO 02/10 2059 Heparin Sodium/ 2,000 ML .STK-MED ONE 11/12 1046 DC Sodium Chloride IV Heparin Sodium/ 1,000 ML .STK-MED ONE 11/12 1046 DC Sodium Chloride IV Iopamidol 0 .STK-MED ONE 11/12 1046 DC IV Lidocaine HCl 0 .STK-MED ONE 11/12 1046 DC .ROUTE Lidocaine HCl 0 .STK-MED ONE 11/12 0858 DC .ROUTE Fentanyl Citrate 50 MCG PACU Q10MIN PRN PRN 11/12 0815 AC IV 11/12 1803 Hydralazine HCl 5 MG PACU Q10MIN PRN PRN 11/12 0815 AC IV 11/12 1803 Hydrocodone Bitart/ 1 TAB PACU ONCE 11/12 08 CKD Acetaminophen PO 11/12 1803 Hydromorphone HCl 0.5 MG PACU Q5MIN PRN PRN 11/12 0815 AC IV 11/12 1803 Insulin Human Lispro 0 PACU ONCE PRN 11/12 0815 AC SUBQ 11/12 1803 Labetalol HCl 5 MG PACU Q10MIN PRN PRN 11/12 0815 AC IV 11/12 1803 Ondansetron HCl 4 MG PACU ONCE PRN 11/12 0815 AC IV 11/12 1803 Cefazolin Sodium 2 GM PREOP ONCALL 11/12 0500 CKD IV 11/19 0459 Sodium Chloride 20 ML ASDIR 11/12 0500 AC IV 02/10 0459 Vancomycin HCl 1,000 MG PREOP ONCALL 11/12 0500 CKD Sodium Chloride 250 ML IV 11/19 0459 Home Medications: FOLIC ACID 1 MG PO DAILY ZOLPIDEM (AMBIEN) 10 MG PO BEDTIME LEVOTHYROXINE (SYNTHROID) 100 MCG PO DAILY I attest that the foregoing medication list in the medical record is true, accurate, and complete to the best of my knowledge. at 1635 RPT #:[id number] END OF REPORT [facility] 2023-11-14 11:37:00 [facility] ([facility] Clinical Note REPORT#:[id number] REPORT STATUS: Signed REPORT INITIALIZATION DATE:11/14/23 TIME: 1137 PATIENT: CHRIS VILLANUEVA UNIT #: [id number] ROOM/BED: [place] [address] : 54 AGE: 68 SEX: M ATTEND: Tessa Lares MD ADM AUTHOR: Vazquez Horton NP REPT SERVICE DT/TIME: 11/14/23 1137 * ALL edits or amendments must be made on the electronic/computer document * Clinical Note Note: Structural Heart Progress Note Patient was evaluated by Hematology and recommendations are appreciated. Cardiology to evaluate and coordinate on timing for TAVR procedure. Otherwise, patient stable hemodynamically with stable vital signs. at 1432 RPT #:[id number] END OF REPORT [facility] 2023-11-14 11:00:00 [facility] ([facility]) Marcelino/Oncology Progress Note REPORT#:[id number] REPORT STATUS: Signed REPORT INITIALIZATION DATE:11/14/23 TIME: 1100 PATIENT: CHRIS VILLANUEVA UNIT #: [id number] ROOM/BED: [place] [address] : 53 AGE: 68 SEX: M ATTEND: Tessa Lares MD ADM AUTHOR: Ahsan Rios MD REPT SERVICE DT/TIME: 11/14/23 1100 * ALL edits or amendments must be made on the electronic/computer document * Subjective Chief Complaint: Abd sono completed- feeling well this AM Objective Physical Exam VS: Vital Signs Date Temp Pulse Resp B/P B/P Mean Pulse Ox FiO2 11/12-11/13 36.7-36.9 85-106 13-27 90-120/55-70 0.0-86 93-97 Last Documented: Result Date Time Pulse Ox 96 11/13 737 B/P 109/62 11/13 737 B/P Mean 0.0 11/13 737 O2 Delivery Room air 11/13 737 Temp 36.8 11/13 737 Pulse 93 11/13 737 Resp 20 11/13 737 General appearance: alert, awake, oriented HEENT: anicteric, atraumatic Neck: supple/no meningismus, no lymphadenopathy Cardiovascular: regular rate and rhythm Respiratory: clear to auscultation Abdomen: non-tender, normal bowel sounds, soft Extremities: moves all 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: alert, oriented X 3 skin dry, intact Psychiatry: normal affect Current Medications Medications: Active Meds + DC'd Last 24 Hrs Folic Acid (FOLIC ACID) 1 MG DAILY PO Levothyroxine Sodium (Synthroid) 100 MCG DAILY 0600 PO Zolpidem Tartrate (AMBIEN) 5 MG BEDTIME PO Zolpidem Tartrate (AMBIEN) 10 MG BEDTIME PO (CAN) Fentanyl Citrate (SUBLIMAZE) 50 MCG PACU Q10MIN PRN PRN IV (DC) Hydralazine HCl (APRESOLINE) 5 MG PACU Q10MIN PRN PRN IV (DC) Hydrocodone Bitart/Acetaminophen (NORCO 5/325) 1 TAB PACU ONCE PO (DC) Hydromorphone HCl (DILAUDID) 0.5 MG PACU Q5MIN PRN PRN IV (DC) Insulin Human Lispro (HUMALOG) 0 PACU ONCE PRN SUBQ (DC) Labetalol HCl (labetalol) 5 MG PACU Q10MIN PRN PRN IV (DC) Ondansetron HCl (ZOFRAN) 4 MG PACU ONCE PRN IV (DC) Cefazolin Sodium (KEFZOL OR ANCEF) 2 GM PREOP ONCALL IV (CKD) Sodium Chloride (SODIUM CHLORIDE) 20 ML ASDIR IV Vancomycin HCl (VANCOMYCIN HCL) 1,000 MG PREOP ONCALL IV (CKD) Sodium Chloride (SODIUM CHLORIDE 0.9%) 250 ML Results Findings/Data: Laboratory Tests 11/14/23 0325: [Embedded Image Not Available] 11/14/23 0324: [Embedded Image Not Available] Laboratory Tests 11/13 11/13 0325 0325 Chemistry Sodium (134 - 147 mEq/L) 137 Potassium (3.4 - 5.0 mEq/L) 3.8 Chloride (100 - 108 mEq/L) 105 Carbon Dioxide (21 - 33 mEq/l) 23 Anion Gap (0 - 20) 13 BUN (7 - 25 mg/dL) 11 Creatinine (0.6 - 1.3 mg/dL) 0.8 Glomerular Filtr Rate (80 - 90) 95.8 H Glucose (77 - 141 mg/dL) 99 Calcium (8.0 - 10.5 mg/dL) 9.7 Magnesium (1.6 - 2.6 mg/dL) 1.61 Vitamin B12 (193 - 986 pg/mL) 1144 H Folate (3.1 - 17.5 ng/mL) 19.5 H Laboratory Tests 11/13 0324 Hematology WBC (4.5 - 11.0 x10 3/uL) 4.6 RBC (4.00 - 5.60 x10 6/uL) 3.42 L Hgb (12.5 - 16.9 g/dL) 13.2 Hct (37.5 - 50.7 %) 38.2 MCV (81.0 - 99.0 fL) 111.7 H MCH (27.0 - 33.0 pg) 38.6 H MCHC (33.0 - 37.0 g/dL) 34.6 RDW (11.5 - 14.5 %) 14.1 Plt Count (150 - 400 x10 3/uL) 39 L MPV (7.0 - 9.0 fL) 9.4 H Neut % (Auto) (56.0 - 77.0 %) 46.3 L Lymph % (Auto) (14.0 - 32.0 %) 34.7 H Custer % (Auto) (4.8 - 9.0 %) 14.7 H Eos % (Auto) (0.3 - 3.7 %) 3.7 Baso % (Auto) (0.0 - 2.0 %) 0.2 Neut # (Auto) (2.0 - 7.6 x10 3/uL) 2.15 Lymph # (Auto) (1.0 - 3.8 x10 3/uL) 1.61 Custer # (Auto) (0.1 - 0.8 x10 3/uL) 0.68 Eos # (Auto) (0.0 - 0.2 x10 3/uL) 0.17 Baso # (Auto) (0.0 - 0.2 x10 3/uL) 0.01 Abs Immat Gran (auto) (0.00 - 0.03 x10 3/uL) 0.02 Immature Gran % (0.0 - 2.0 %) 0.4 Nucleated RBC % (0 - 0 %) 0.0 Nucleated RBCs # (Man) (0.0 - 0.1 x10 3/uL) 0.00 Immature Plt Fraction (0.9 - 11.2 %) 2.2 Laboratory Tests 11/13 0325 Serology Hep Bs Antigen (NonReactive INDEX) NON REACTIVE Hepatitis C Antibody (NON REACT. INDEX) NON REACTIVE HIV 1 2 Antibody Screen (Nonreactive) Nonreactive Radiology data: Recent Impressions: ULTRASOUND - US ABDOMEN COMPLETE 11/13 0945 Report Impression - Status: SIGNED Entered: 11/14/2023 1012 IMPRESSION: Abdominal ultrasound within normal sonographic limits. I Impression By: Selwyn Quintanilla D.O. Diagnosis, Assessment Plan Consultants: hematology Free Text DxA P Notes Free Text DxA P Notes: ASSESSMENT: 1. Thrombocytopenia. 2. Leukopenia along with macrocytosis. 3. Aortic stenosis. 4. Hypothyroidism. PLAN: -Remarkably, despite heavy ETOH intake, liver normal. Spleen as well. Workup for panyctopenia also negative. As such, primary bone marrow etiology such as MDS should be considered- discussed with patient, outpatient bone marrow aspiration and biopsy -If TAVR still planned, would need to transfuse 1 to 2 jumbo pack of platelets for a goal platelet count as per cardiology discretion, either 50,000 or 100,000. Thrombocytopenia not likely to be reversed given chronic findings dating back to 2020 and bone marrow issues. -Cardiology consultation pending. -Other medical management per primary team. Ahsan Rios MD at 1103 RPT #:[id number] END OF REPORT [facility] 2023-11-13 18:32:00 [id number] [place] [address] PATIENT NAME: CHRIS VILLANUEVA ADMIT DATE: 11/14/23 ACCOUNT NO: [id number] ROOM NO: [id number] AGE: 68 REPORT TYPE: CONSULTATION REPORT SEX: M ADMITTING PHYSICIAN:Tessa Lares MD ATTENDING PHYSICIAN:Tessa Lares MD CONSULTATION DATE: 11/13/2023 HEMATOLOGY CONSULTATION PHYSICIAN REQUESTING CONSULTATION: Tessa Lares MD REASON FOR CONSULTATION: Thrombocytopenia. HISTORY OF PRESENT ILLNESS: A 68-year-old pleasant gentleman, who presented for a TAVR procedure today; however, canceled secondary to thrombocytopenia. The patient says he has known about thrombocytopenia dating back to 2020 where his counts have been 39,000. Review of CBC at that time showed leukopenia along with macrocytosis and mild anemia as well. CBC today showed WBC 4, hemoglobin 12.5, hematocrit 36.8, platelets 33,000, MCV 112.9. The patient says that he does consume alcohol almost daily for the last 30 years, unable to quantify how much. He says he has not drank in the last few days, however. BUN 12, creatinine 1. PAST MEDICAL HISTORY: 1. Hypothyroidism. 2. Chronic thrombocytopenia. PAST SURGICAL HISTORY: Unknown. CURRENT MEDICATIONS: As per NOV. ALLERGIES: PENICILLIN. SOCIAL HISTORY: No smoking, does drink daily multiple drinks per day, for 30 years. No illicit drug use. Good social support with his . FAMILY HISTORY: No history of malignancies or hematologic disorders. REVIEW OF SYSTEMS: A 14-point review of systems is noted to be negative unless otherwise mentioned in HPI. PHYSICAL EXAMINATION: VITAL SIGNS: Blood pressure 108/64, pulse 102, respiratory rate 14, temperature 36.9 degrees, O2 saturation 97% on room air. GENERAL: Pleasant male, in bed, in no acute distress. HEENT: Normocephalic, atraumatic. NECK: Supple, no JVD, no carotid bruit. LUNGS: Clear to auscultation bilaterally. PATIENT NAME: CHRIS VILLANUEVA CARDIAC: S1, S2 positive, tachycardic. ABDOMEN: Soft, nontender, nondistended. Bowel sounds positive. EXTREMITIES: No edema in bilateral lower extremities. NEUROLOGIC: Nonfocal. SKIN: No rash or bruising seen. PSYCHIATRIC: The patient is awake and oriented to time, person, and place. LABORATORY DATA: Sodium 136, potassium 3.6, chloride 104, bicarbonate 26, BUN 12, creatinine 1, glucose 115. CBC: WBC 4, hemoglobin 12.5, hematocrit 36.8, platelets 33,000, MCV 112.9, RDW 14.2. IMAGING: Chest x-ray 11/13/2023, no acute cardiopulmonary process. ASSESSMENT: 1. Thrombocytopenia. 2. Leukopenia along with macrocytosis. 3. Aortic stenosis. 4. Hypothyroidism. PLAN: 1. Most likely etiology of the patient's pancytopenia, likely stems from underlying daily chronic alcohol intake/abuse over the last 30 years. Agree with abdominal ultrasound to evaluate liver and spleen, as suspect to have minimal fatty liver and possibly cirrhosis. For thoroughness, check B12, folate levels. Check hepatitis B and C serologies, as well as HIV. 2. If TAVR still planned, would need to transfuse 1 to 2 jumbo pack of platelets for a goal platelet count as per cardiology discretion, either 50,000 or 100,000. Thrombocytopenia not likely to be reversed given chronic findings dating back to 2020. 3. Cardiology consultation pending. 4. Other medical management per primary team. Thank you for the consultation. We will follow alongside as the patient remains hospitalized. Dictated By: Ahsan Rios MD Date Dictated: 11/13/2023 18:32:28 Date Transcribed: 11/13/2023 20:01:44 [place] [place] ID: [id number] Authenticated by Ahsan Rios MD On 11/25/2023 02:34:37 PM at 0234 PATIENT NAME: CHRIS VILLANUEVA [facility] 2023-11-13 18:06:00 [facility] ([facility]) Cardiology Consultation REPORT#:[id number] REPORT STATUS: Signed REPORT INITIALIZATION DATE:11/13/23 TIME: 1805 PATIENT: CHRIS VILLANUEVA UNIT #: [id number] ROOM/BED: [place] [address] : 54 AGE: 68 SEX: M ATTEND: Tessa Lares MD ADM AUTHOR: Jesús Casas MD REPT SERVICE DT/TIME: 11/13/231805 * ALL edits or amendments must be made on the electronic/computer document * History of Present Illness HPI Reason for consult: Severe Chief complaint: SOB PCP: PCP: Saúl Damon MD HPI: This is a very pleasant 68-year-old male with past medical history of hypothyroidism, thrombocytopenia and severe symptomatic aortic stenosis who came in for TAVR. Patient was found to have significant thrombocytopenia patient was admitted for hematology workup prior to TAVR. Dyspnea on exertion, but no chest pain. Patient has no history of bleeding, or significant bruising. History - Adult longitudinal Additional medical history: Hypothyroidism and thrombocytopenia Family history: Denies: CAD < 40 yrs old. Smoking status for patients 13 years old or older: Never Smoker Allergies: Coded Allergies: Penicillins (Severe, SINCE CHILDHOOD 11/12/23) Review of Systems Additional notes: As per HPI otherwise -12 system point Objective General VS/I O: Vital Signs: Date Time Temp Pulse Resp B/P B/P Pulse O2 O2 Flow FiO2 Mean Ox Delivery Rate 11/12 1803 98.4 102 13 108/64 0.0 97 Room air 11/12 1515 98.2 92 18 103/62 0.0 96 11/12 0835 98.2 104 127/74 97 PATIENT WEIGHT: Weight (lb): 220 Weight (oz): 7.4 Weight (kg): 100.000 Medications: Active Meds + DC'd Last 24 Hrs Folic Acid (FOLIC ACID) 1 MG DAILY PO Levothyroxine Sodium (Synthroid) 100 MCG DAILY 0600 PO Zolpidem Tartrate (AMBIEN) 5 MG BEDTIME PO Heparin Sodium/Sodium Chloride (HEPARIN 2,000 UNITS/NS 1,000mL) 2,000 ML .STK-MED ONE IV (DC) Heparin Sodium/Sodium Chloride (HEPARIN 1,000 UNITS/NS 500ML) 1,000 ML .STK- MED ONE IV (DC) Iopamidol (ISOVUE-370 100ML) 0 .STK-MED ONE IV (DC) Lidocaine HCl (LIDOCAINE HCL/PF) 0 .STK-MED ONE .ROUTE (DC) Lidocaine HCl (XYLOCAINE) 0 .STK-MED ONE .ROUTE (DC) Fentanyl Citrate (SUBLIMAZE) 50 MCG PACU Q10MIN PRN PRN IV (DC) Hydralazine HCl (APRESOLINE) 5 MG PACU Q10MIN PRN PRN IV (DC) Hydrocodone Bitart/Acetaminophen (NORCO 5/325) 1 TAB PACU ONCE PO (DC) Hydromorphone HCl (DILAUDID) 0.5 MG PACU Q5MIN PRN PRN IV (DC) Insulin Human Lispro (HUMALOG) 0 PACU ONCE PRN SUBQ (DC) Labetalol HCl (labetalol) 5 MG PACU Q10MIN PRN PRN IV (DC) Ondansetron HCl (ZOFRAN) 4 MG PACU ONCE PRN IV (DC) Cefazolin Sodium (KEFZOL OR ANCEF) 2 GM PREOP ONCALL IV (CKD) Sodium Chloride (SODIUM CHLORIDE) 20 ML ASDIR IV Vancomycin HCl (VANCOMYCIN HCL) 1,000 MG PREOP ONCALL IV (CKD) Sodium Chloride (SODIUM CHLORIDE 0.9%) 250 ML Physical Exam General appearance: alert, awake, oriented Head/Eyes: PERRLA ENT: normal nose Neck: no JVD Cardiovascular: CV assessment: regular rate and rhythm, normal heart sounds Respiratory: clear to auscultation, no distress Abdomen: soft 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: alert, oriented X 3, normal speech Psychiatry: normal affect, normal judgment/insight, no hallucinations Results Findings/Data: Laboratory Tests 11/12 0841 Chemistry Sodium (134 - 147 mEq/L) 136 Potassium (3.4 - 5.0 mEq/L) 3.6 Chloride (100 - 108 mEq/L) 104 Carbon Dioxide (21 - 33 mEq/l) 26 Anion Gap (0 - 20) 10 BUN (7 - 25 mg/dL) 12 Creatinine (0.6 - 1.3 mg/dL) 1.0 Glomerular Filtr Rate (80 - 90) 81.5 Glucose (77 - 141 mg/dL) 115 Calcium (8.0 - 10.5 mg/dL) 9.5 Laboratory Tests 11/12 0840 Coagulation INR (0.8 - 1.2) 1.1 PT Patient/Control Mix (9.3 - 12.9 SECONDS) 12.3 Laboratory Tests 11/12 11/12 1003 0841 Hematology WBC (4.5 - 11.0 x10 3/uL) 4.0 L 4.0 L RBC (4.00 - 5.60 x10 6/uL) 3.26 L 3.51 L Hgb (12.5 - 16.9 g/dL) 12.5 13.5 Hct (37.5 - 50.7 %) 36.8 L 39.7 MCV (81.0 - 99.0 fL) 112.9 H 113.1 H MCH (27.0 - 33.0 pg) 38.3 H 38.5 H MCHC (33.0 - 37.0 g/dL) 34.0 34.0 RDW (11.5 - 14.5 %) 14.2 14.4 Plt Count (150 - 400 x10 3/uL) 33 L 37 L MPV (7.0 - 9.0 fL) 10.6 H 10.1 H Neut % (Auto) (56.0 - 77.0 %) 48.5 L Lymph % (Auto) (14.0 - 32.0 %) 32.4 H Custer % (Auto) (4.8 - 9.0 %) 15.1 H Eos % (Auto) (0.3 - 3.7 %) 3.0 Baso % (Auto) (0.0 - 2.0 %) 0.5 Neut # (Auto) (2.0 - 7.6 x10 3/uL) 1.93 L Lymph # (Auto) (1.0 - 3.8 x10 3/uL) 1.29 Custer # (Auto) (0.1 - 0.8 x10 3/uL) 0.60 Eos # (Auto) (0.0 - 0.2 x10 3/uL) 0.12 Baso # (Auto) (0.0 - 0.2 x10 3/uL) 0.02 Abs Immat Gran (auto) (0.00 - 0.03 x10 3/uL) 0.02 Immature Gran % (0.0 - 2.0 %) 0.5 Seg Neutrophils % (37 - 69 %) 67.3 Band Neutrophils % (0.0 - 10.0 %) 0.0 Lymphocytes % (Manual) (23 - 55 %) 21.8 L Monocytes % (Manual) (0 - 10 %) 8.2 Eosinophils % (Manual) (0.0 - 4.0 %) 1.8 Basophils % (Manual) (0.0 - 2.0 %) 0.9 Nucleated RBC % (0 - 0 %) 0.0 Nucleated RBCs # (Man) (0.0 - 0.1 x10 3/uL) 0.00 Platelet Estimate (ADEQUATE THOUSAND) 28-35 32-40 Immature Plt Fraction (0.9 - 11.2 %) 2.6 2.7 Anisocytosis 2+ Macrocytosis 2+ Radiology Data: Recent Impressions: RADIOLOGY - XR CHEST 1 V 11/12 5254 Report Impression - Status: SIGNED Entered: 11/13/2023 1111 IMPRESSION: 1. No acute cardiopulmonary findings. 2. Mild nonspecific underlying chronic interstitial lung changes. Impression By: PabloEFAydee Mendoza M.D. Diagnosis, Assessment Plan Consultants: hematology Free Text DxA P Notes Free Text DxA P Notes: 1. Severe Symptomatic stenosis: need TAVR, was held due to low plt, hem evaluated pt and Pt has low plt for long atime, TAVR was canceled and patient was admitted for further evaluation for thrombocytopenia. 2. Thrombocytopenia: Monitor, heme consulted appreciate the recommendation at 2257 RPT #:[id number] END OF REPORT [facility] 2023-11-13 13:28:00 [facility] ([facility] Hospitalist History Physical REPORT#:[id number] REPORT STATUS: Signed REPORT INITIALIZATION DATE:11/13/23 TIME: 132 PATIENT: CHRIS VILLANUEVA UNIT #: [id number] ROOM/BED: [place] [id number] : 54 AGE: 68 SEX: M ATTEND: eTssa Lares MD ADM AUTHOR: Tessa Lares MD REPT SERVICE DT/TIME: 11/13/23 1328 * ALL edits or amendments must be made on the electronic/computer document * History of Present Illness HPI Chief complaint: low platelet HPI: 68 years old male with PMH of hypothyroid and thrombocytopenia admitted to the hospital due to thrombocytopenia . 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 he feel well . no bleeding . he was admitted for TAVR. procedure cancelled due to thrombocytopenia . as patient his platelet was 39 --2 -3 years ago. he feel sob for a year . no cp no nausea no vomiting no fever no cough no diarrhea no dizziness no headache History Social History Smoking status for patients 13 years old or older: Never Smoker Medication/Allergy-Vaccine Hx Allergies: Coded Allergies: Penicillins (Severe, SINCE CHILDHOOD 11/12/23) Review of Systems Constitutional: Denies: fatigue, fever, generalized weakness, lethargy. Respiratory: Denies: pneumonia, productive cough (sputum), SOB, wheezing. Cardiovascular: Reports: RAE (dyspnea on exertion). Denies: chest pain, edema, orthopnea, palpitations. GI: Denies: abdominal pain, diarrhea, hematemesis, hematochezia, nausea, vomiting. : Denies: dysuria, flank pain, frequency, hematuria. Neuro: Denies: dizziness, headache, seizure, slurred speech, syncope. OBJECTIVE VS/I O: Vital Signs Date Temp Pulse Resp B/P B/P Mean Pulse Ox FiO2 / 36.8 104 127/74 97 Last Documented: Result Date Time Pulse Ox 97 / 0835 B/P 127/74 / 0835 Temp 36.8 11/12 0835 Pulse 104 / 0835 Patient Weight and BMI Weight (kg): 100.000 BMI: 28.3 Medications: Active Meds + DC'd Last 24 Hrs Folic Acid (FOLIC ACID) 1 MG DAILY PO Levothyroxine Sodium (Synthroid) 100 MCG DAILY 0600 PO Zolpidem Tartrate (AMBIEN) 5 MG BEDTIME PO Heparin Sodium/Sodium Chloride (HEPARIN 2,000 UNITS/NS 1,000mL) 2,000 ML .STK-MED ONE IV (DC) Heparin Sodium/Sodium Chloride (HEPARIN 1,000 UNITS/NS 500ML) 1,000 ML .STK- MED ONE IV (DC) Iopamidol (ISOVUE-370 100ML) 0 .STK-MED ONE IV (DC) Lidocaine HCl (LIDOCAINE HCL/PF) 0 .STK-MED ONE .ROUTE (DC) Lidocaine HCl (XYLOCAINE) 0 .STK-MED ONE .ROUTE (DC) Fentanyl Citrate (SUBLIMAZE) 50 MCG PACU Q10MIN PRN PRN IV Hydralazine HCl (APRESOLINE) 5 MG PACU Q10MIN PRN PRN IV Hydrocodone Bitart/Acetaminophen (NORCO 5/325) 1 TAB PACU ONCE PO (CKD) Hydromorphone HCl (DILAUDID) 0.5 MG PACU Q5MIN PRN PRN IV Insulin Human Lispro (HUMALOG) 0 PACU ONCE PRN SUBQ Labetalol HCl (labetalol) 5 MG PACU Q10MIN PRN PRN IV Ondansetron HCl (ZOFRAN) 4 MG PACU ONCE PRN IV Cefazolin Sodium (KEFZOL OR ANCEF) 2 GM PREOP ONCALL IV (CKD) Sodium Chloride (SODIUM CHLORIDE) 20 ML ASDIR IV Vancomycin HCl (VANCOMYCIN HCL) 1,000 MG PREOP ONCALL IV (CKD) Sodium Chloride (SODIUM CHLORIDE 0.9%) 250 ML General appearance: alert, awake, oriented Head/Eyes: atraumatic, normal conjunctiva/sclera, normal eyelids/periorb. 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, normal speech, no motor deficits, no sensory deficits Skin: dry, intact, no rash Results Findings/Data: Laboratory Tests: 11/12 11/12 11/12 1003 0841 0840 Chemistry Sodium (134 - 147 mEq/L) 136 Potassium (3.4 - 5.0 mEq/L) 3.6 Chloride (100 - 108 mEq/L) 104 Carbon Dioxide (21 - 33 mEq/l) 26 Anion Gap (0 - 20) 10 BUN (7 - 25 mg/dL) 12 Creatinine (0.6 - 1.3 mg/dL) 1.0 Glomerular Filtr Rate (80 - 90) 81.5 Glucose (77 - 141 mg/dL) 115 Calcium (8.0 - 10.5 mg/dL) 9.5 Coagulation INR (0.8 - 1.2) 1.1 PT Patient/Control Mix (9.3 - 12.9 SECONDS) 12.3 Hematology WBC (4.5 - 11.0 x10 3/uL) 4.0 L 4.0 L RBC (4.00 - 5.60 x10 6/uL) 3.26 L 3.51 L Hgb (12.5 - 16.9 g/dL) 12.5 13.5 Hct (37.5 - 50.7 %) 36.8 L 39.7 MCV (81.0 - 99.0 fL) 112.9 H 113.1 H MCH (27.0 - 33.0 pg) 38.3 H 38.5 H MCHC (33.0 - 37.0 g/dL) 34.0 34.0 RDW (11.5 - 14.5 %) 14.2 14.4 Plt Count (150 - 400 x10 3/uL) 33 L 37 L MPV (7.0 - 9.0 fL) 10.6 H 10.1 H Neut % (Auto) (56.0 - 77.0 %) 48.5 L Lymph % (Auto) (14.0 - 32.0 %) 32.4 H Custer % (Auto) (4.8 - 9.0 %) 15.1 H Eos % (Auto) (0.3 - 3.7 %) 3.0 Baso % (Auto) (0.0 - 2.0 %) 0.5 Neut # (Auto) (2.0 - 7.6 x10 3/uL) 1.93 L Lymph # (Auto) (1.0 - 3.8 x10 3/uL) 1.29 Custer # (Auto) (0.1 - 0.8 x10 3/uL) 0.60 Eos # (Auto) (0.0 - 0.2 x10 3/uL) 0.12 Baso # (Auto) (0.0 - 0.2 x10 3/uL) 0.02 Abs Immat Gran (auto) (0.00 - 0.03 x10 3/uL) 0.02 Immature Gran % (0.0 - 2.0 %) 0.5 Seg Neutrophils % (37 - 69 %) 67.3 Band Neutrophils % (0.0 - 10.0 %) 0.0 Lymphocytes % (Manual) (23 - 55 %) 21.8 L Monocytes % (Manual) (0 - 10 %) 8.2 Eosinophils % (Manual) (0.0 - 4.0 %) 1.8 Basophils % (Manual) (0.0 - 2.0 %) 0.9 Nucleated RBC % (0 - 0 %) 0.0 Nucleated RBCs # (Man) (0.0 - 0.1 x10 3/uL) 0.00 Platelet Estimate (ADEQUATE THOUSAND) 28-35 32-40 Immature Plt Fraction (0.9 - 11.2 %) 2.6 2.7 Anisocytosis 2+ Macrocytosis 2+ Laboratory Tests 11/13/23 1003: [Embedded Image Not Available] 11/13/23 0841: [Embedded Image Not Available] Radiology data: Recent Impressions: RADIOLOGY - XR CHEST 1 V 11/12 0854 Report Impression - Status: SIGNED Entered: 11/13/2023 1114 IMPRESSION: 1. No acute cardiopulmonary findings. 2. Mild nonspecific underlying chronic interstitial lung changes. Impression By: PabloEFAydee Mendoza M.D. Diagnosis, Assessment Plan Free Text A P: thrombocytopenia severe aortic stenosis hypothyroid hematology consult TAVR-- reshedule -- 11/14 conttinue home med for hypothyroid Consultants: hematology Quality: Gen Med Crit Care Current Medications Current medication review: Current Medications Sig/Claus Start time Last Medication Dose Route Stop Time Status Admin Folic Acid 1 MG DAILY 11/13 0900 AC PO 02/11 0859 Levothyroxine Sodium 100 MCG DAILY 11/13 0600 AC PO 02/11 0559 Zolpidem Tartrate 5 MG BEDTIME 11/12 2100 AC PO 02/10 205 Heparin Sodium/ 2,000 ML .STK-MED ONE 11/12 1046 DC Sodium Chloride IV Heparin Sodium/ 1,000 ML .STK-MED ONE 11/12 1046 DC Sodium Chloride IV Iopamidol 0 .STK-MED ONE 11/12 1046 DC IV Lidocaine HCl 0 .STK-MED ONE 11/12 1046 DC .ROUTE Lidocaine HCl 0 .STK-MED ONE 11/12 0858 DC .ROUTE Fentanyl Citrate 50 MCG PACU Q10MIN PRN PRN 11/12 0815 AC IV 11/12 1803 Hydralazine HCl 5 MG PACU Q10MIN PRN PRN 11/12 0815 AC IV 11/12 1803 Hydrocodone Bitart/ 1 TAB PACU ONCE 11/12 0815 CKD Acetaminophen PO 11/12 1803 Hydromorphone HCl 0.5 MG PACU Q5MIN PRN PRN 11/12 0815 AC IV 11/12 1803 Insulin Human Lispro 0 PACU ONCE PRN 11/12 0815 AC SUBQ 11/12 1803 Labetalol HCl 5 MG PACU Q10MIN PRN PRN 11/12 0815 AC IV 11/12 1803 Ondansetron HCl 4 MG PACU ONCE PRN 11/12 0815 AC IV 11/12 1803 Cefazolin Sodium 2 GM PREOP ONCALL 11/12 0500 CKD IV 11/19 0459 Sodium Chloride 20 ML ASDIR 11/12 0500 AC IV 02/10 0459 Vancomycin HCl 1,000 MG PREOP ONCALL 11/12 0500 CKD Sodium Chloride 250 ML IV 11/19 0459 Home Medications: FOLIC ACID 1 MG PO DAILY ZOLPIDEM (AMBIEN) 10 MG PO BEDTIME LEVOTHYROXINE (SYNTHROID) 100 MCG PO DAILY I attest that the foregoing medication list in the medical record is true, accurate, and complete to the best of my knowledge. at 1804 RPT #:[id number] END OF REPORT [facility] 2023-11-13 08:49:00 [id number] [place] [address] PATIENT NAME: CHRIS VILLANUEVA ADMIT DATE: 11/13/23 ACCOUNT NO: [id number] ROOM NO: [id number] AGE: 68 REPORT TYPE: eELECTROCARDIOGRAM REPORT SEX: M ADMITTING PHYSICIAN:Tessa Lares MD ATTENDING PHYSICIAN:Tessa Lares MD Order: [id number] Test Reason : TAVR Test Date/Time Stamp: SunNov 13 2023 08:49:02 Blood Pressure : / mmHG Vent. Rate : 092 BPM Atrial Rate : 092 BPM P-R Int : 214 ms QRS Dur : 112 ms QT Int : 394 ms P-R-T Axes : 065 -47 077 degrees QTc Int : 487 ms Sinus rhythm with 1st degree AV block Left ventricular hypertrophy with repolarization abnormality Prolonged QT Abnormal ECG No previous ECGs available Confirmed by MD MERCED, MARYCARMEN ([id number]) on 11/14/2023 6:32:52 AM Referred By: Dl Tong Confirmed by:MARYCARMEN THOMPSON MD at 0632 PATIENT NAME: CHRIS VILLANUEVA [facility] 2023-10-16 16:45:00 Regarding: positive covid test post paxlovid ----- Message from Mango Cabral sent at 10/16/2023 4:44 PM POLICE BOOKING OFFICER ----- Chris Villanueva is a 68 year old male Spouse would like to speak with nurse about positive covid test after taking paxlovid for 5 days. She wants to know if it is normal RS' [facility] Sunil Ibarra RN [facility] 2023-10-16 16:45:00 Nurse Note: spouse of pt reports positive test despite completing Paxlovid. Finished Paxlovid . Spouse states he does not have symptoms. Pt spouse asking if this is normal. This RN informed spouse COVID rebound after paxlovid is possible and usually only requires further isolation measures and mask wearing. This RN advised spouse to test daily and follow up with PCP. Spouse verbalized understanding. [facility] Sunil Ibarra RN Reason for Disposition General information question, no triage required and triager able to answer question Protocols used: Information Only Call - No [id number] [facility] 2023-09-17 08:29:00 [id number] [place] [address] PATIENT NAME: DAWOOD VILLANUEVA ADMIT DATE: 09/12/23 ACCOUNT NO: [id number] ROOM NO: AGE: 68 REPORT TYPE: PULMONARY FUNCTION REPORT SEX: M ADMITTING PHYSICIAN: ATTENDING PHYSICIAN:Dl Tong MD STUDY DATE: 09/12/2023 FULL PULMONARY FUNCTION TEST INTERPRETATION SPIROMETRY: FVC is 80% predicted. FEV1 is 89% of predicted. Ratio is 82. No response to bronchodilator. TLC 77. Diffusion capacity 62%. FULL PULMONARY FUNCTION TEST: Restrictive impairment, most consistent with extrapulmonary restriction secondary to body weight. Dictated By: Kajal Stevens MD Date Dictated: 09/17/2023 08:29:47 Date Transcribed: 09/17/2023 08:37:13 /EDWINA Receipt ID: [id number] Authenticated by KAJAL STEVENS MD On 09/17/2023 02:07:38 PM at 0207 PATIENT NAME: DAWOOD VILLANUEVA P [facility] 2023-08-16 16:19:00 [id number] [place] [id number] PATIENT NAME: DAWOOD VILLANUEVA ADMIT DATE: 07/25/23 ACCOUNT NO: [id number] ROOM NO: AGE: 68 REPORT TYPE: eECHOCARDIOGRAM REPORT SEX: M ADMITTING PHYSICIAN: ATTENDING PHYSICIAN:Dl Tong MD *[place] [address] Transthoracic Echocardiogram Patient: Dawood Villanueva Study Date: 07/25/2023 BP: Location: [facility] URN: [id number] : 1955 Age: 68 Height: 74 in / 188 cm Gender: M Weight: 219.5 lb / 99.8 kg BMI/BSA: 28.2 kg/m 2 / 2.26 m 2 *Ordering Physician: * Dl Tong *Interpreting Physician: * Jesús Casas MD *Equities Analyst: * Kim Floyd [facility] ---- Indications: AORTIC STENOSIS. ---- Study data: Transthoracic echocardiogram. Procedure: Transthoracic echocardiography was performed. Images were obtained using a [employer] cardiac ultrasound machine. Image quality was good. Complete 2D, complete spectral Doppler, and color Doppler. Location: Echo laboratory. Patient status: Outpatient. ---- Findings Left ventricle: The cavity size is normal. Wall thickness is mildly increased. Systolic function is at the lower limits of normal. The estimated ejection fraction is 50-54%. Wall motion is normal; there are no regional wall motion abnormalities. There is fusion of early and atrial contributions to ventricular filling. Right ventricle: The cavity size is normal. Systolic function is normal. PATIENT NAME: DAWOOD VILLANUEVA Left atrium: The atrium is normal in size. Right atrium: The atrium is normal in size. Aorta: Aortic root: The aortic root is normal in size. Aortic valve: The valve is trileaflet. The leaflets are severely calcified. The findings are consistent with severe stenosis. There is mild regurgitation. Mitral valve: The valve is structurally normal. There is no evidence of stenosis. There is mild regurgitation. Tricuspid valve: The valve is structurally normal. There is mild regurgitation. Pulmonic valve: The valve is structurally normal. There is no regurgitation. Pericardium: There is no pericardial effusion. Pulmonary arteries: The main pulmonary artery is normal-sized. Systemic veins: Inferior vena cava: The vessel is mildly dilated. The respirophasic diameter changes are in the normal range (= 50%). ---- Measurements Left ventricle Value Ref EDDA, LAX 4.9 cm 4.2 - 5.8 ESD, LAX 3.8 cm 2.5 - 4.0 ESD/bsa, LAX 1.7 cm/m 2 1.3 - 2.1 FS, LAX 22 % 25 - 43 ESD/bsa major 3.5 cm/m 2 --------- ax, A4C EDDA/bsa minor 3.5 cm/m 2 --------- ax, A4C EDDA major ax, 8.7 cm --------- A2C ESD major ax, 7.3 cm --------- A2C EDDA/bsa major 3.9 cm/m 2 --------- ax, A2C ESD/bsa major 3.2 cm/m 2 --------- ax, A2C PW, ED 1.1 cm 0.6 - 1.0 IVS/PW, ED 1.03 --------- EF 45 % 52 - 72 E', lat bia, 10.3 cm/sec >=10.0 TDI E/e', lat bia, 10 --------- TDI LVOT Value Ref Diam, S 2.18 cm --------- Area 3.7 cm 2 --------- Peak bacilio, S 0.68 m/sec --------- Mean bacilio, S 0.55 m/sec --------- VTI, S 15.7 cm --------- Peak grad, S 2 mm Hg --------- PATIENT NAME: DAWOOD VILLANUEVA Mean grad, S 1 mm Hg --------- SV 52 ml --------- Qs 4.76 L/min --------- Qs/bsa 2.1 L/(min-m 2) --------- SV/bsa 23 ml/m 2 --------- Ventricular septum Value Ref IVS, ED 1.1 cm 0.6 - 1.0 Right ventricle Value Ref EDDA, LAX 3.6 cm --------- TAPSE, MM 2.3 cm 1.7 - 3.1 Left atrium Value Ref AP dim, ES 3.86 cm 3.00 - 4.00 Vol/bsa, ES, 12 ml/m 2 12 - 37 1-p A4C Vol, ES, 2-p 30 ml --------- Vol/bsa, ES, 13 ml/m 2 16 - 34 2-p Vol/bsa, ES, 13 ml/m 2 16 - 34 A/L Aortic valve Value Ref ANGELA, plan 0.74 cm 2 --------- ANGELA/bsa, plan 0.33 cm 2/m 2 --------- Peak v, S 4.06 m/sec --------- Mean v, S 3.3 m/sec --------- VTI, S 89.9 cm --------- Mean grad, S 44.8 mm Hg --------- Peak grad, S 65.9 mm Hg --------- LVOT/AV, VTI 0.17 --------- ratio ANGELA, VTI 0.57 cm 2 --------- LVOT/AV, Vpeak 0.17 --------- ratio ANGELA, Vmax 0.63 cm 2 --------- AR peak v 3.83 m/sec --------- AR decel 444 cm/s 2 --------- AR decel time 863 ms --------- AR PHT 250 ms --------- AR peak grad 59 mm Hg --------- Mitral valve Value Ref Peak E 1.06 m/sec --------- Peak A 1.14 m/sec --------- Decel time 85 ms --------- Peak grad, D 4.5 mm Hg --------- Peak E/A ratio 0.93 --------- Pulmonic valve Value Ref SC v, ED 0.91 m/sec --------- PATIENT NAME: DAWOOD VILLANUEVA Tricuspid valve Value Ref TR peak v 2.22 m/sec <=2.8 Peak RV-RA 20 mm Hg --------- grad, S Aortic root Value Ref Root diam 3.7 cm <4.3 ---- Conclusions Summary: 1. Left ventricle: The cavity size is normal. Wall thickness is mildly increased. Systolic function is at the lower limits of normal. The estimated ejection fraction is 50-54%. Wall motion is normal; there are no regional wall motion abnormalities. There is fusion of early and atrial contributions to ventricular filling. 2. Aortic valve: The findings are consistent with severe stenosis. Prepared and electronically signed by Jesús Casas MD 08/16/2023 16:19 at 1619 PATIENT NAME: DAWOOD VILLANUEVA [facility]
--- NOTE | 2024-10-30 15:29 | RAD REPORT ---
EXAMINATION: XR LEFT SHOULDER CLINICAL INDICATION: Male, 69 years old. PAIN TECHNIQUE: Multiple views of the left shoulder were obtained. COMPARISON: No prior exam. FINDINGS: Oblique fracture of the distal clavicle is present. Mild to moderate subacromial outlet na rrowing. Proximal left humerus appears maintained. No dislocation.
--- NOTE | 2024-10-30 16:02 | RAD REPORT ---
EXAM: CT brain without contrast HISTORY: TRAUMA COMPARISON: None TECHNIQUE: Multiple contiguous axial images were obtained and a CT of the brain without contrast. Sag ittal and coronal reformats were performed. One or more of the following dose reduction techniques were used: Automated exposure control, adjust ment of the mA and/or kV according to patient size, and/or iterative reconstruction. FINDINGS: No evidence of hydrocephalus, intracranial hemorrhage, or extra-axial fluid collection. Mild brain atrophy with mild periventricular and deep white matter chronic microvascular ischemic ch anges present. No evidence of midline shift or areas of brain edema. The calvarium is intact. Chronic right maxillary sinusitis. IMPRESSION: No evidence of acute intracranial abnormality. EXAM: CT of the cervical spine without contrast HISTORY: Neck pain, injury TRAUMA TECHNIQUE: Multiple contiguous axial images were obtained in a CT of the cervical spine without contr ast. Sagittal and coronal reformats were performed. FINDINGS: The vertebral bodies demonstrate normal height and alignment. No evidence of acute fracture or subluxation.. Moderate lower cervical degenerative spondylosis. No prevertebral soft tissue swelling is seen. Carotid atherosclerosis. The posterior facets are well aligned. Normal alignment of the skull base with the cervical spine is seen. The lung apices are unremarkable. IMPRESSION: No evidence of acute osseous abnormality of the cervical spine. Moderate lower cervical degenerative spondylosis.
[2024-10-30] MEDS ORDERED: ONDANSETRON 4 MG/2 ML VIAL ONE (16:06)
[2024-10-30] MEDS ORDERED: MORPHINE 4 MG/ML SYR ONE (16:07)
--- NOTE | 2024-10-30 16:07 | RAD REPORT ---
EXAMINATION: CTA CHEST PE CLINICAL INDICATION: dyspnea, syncope TECHNIQUE: This examination was performed according to an angiographic protocol with 3D post-processi ng. This involves 3D reconstructions, MIPs, volume rendered images and/or shaded surface rendering. One or more of the following dose reduction techniques were used: Automated exposure control, adjustm ent of the mA and/or kV according to patient size, and/or iterative reconstruction. Unless otherwise specified, incidental findings do not require dedicated imaging follow-up. COMPARISON: No prior exam. FINDINGS: PULMONARY ARTERIES: Normal caliber. No evidence of pulmonary emboli to the subsegmental level. THORACIC AORTA: Normal caliber and configuration. Moderate atherosclerosis at the origin of the left subclavian artery. LUNGS: Prominent fibroemphysematous changes are seen throughout the lung sparks. Mild atelectasis is present base. PLEURA: Trace bilateral pleural effusions, slightly larger on the left. MEDIASTINUM AND LYMPH NODES: No mediastinal mass or fluid collection. Normal size mediastinal, hilar, and axillary lymph nodes. OSSEOUS STRUCTURES AND CHEST WALL: Intact. UPPER ABDOMEN: Mild to moderate ascites is noted. IMPRESSION: No evidence of pulmonary emboli to the subsegmental level. Fibroemphysematous changes throughout both lung sparks. Trace pleural effusions, slightly larger than left. Mild ascites upper abdomen.
[2024-10-30 16:22] LABS: Absolute Eosinophils 0.8 K/uL (0-0.5); Absolute Lymphocytes (CBC) 0.7 K/uL (0.7-4.9); Absolute Monocytes 0.3 K/uL (0.1-1.3); Absolute Neutrophil 2.4 K/uL (1.8-8.0); Basophils % 0.7 % (0-1.3); Eosinophils % 18.9 % (0-4.4); Hematocrit 36.9 % (39.6-49.0); Hemoglobin 12.4 g/dL (13.6-17.9); Lymphocytes % 15.9 % (15.3-44.8); MCH 37.7 pg (27.0-35.0); MCHC 33.5 g/dL (32.0-36.0); MCV 112.4 fL (80-100); MPV 7.1 fL (7.6-11.3); Monocytes % 6.3 % (3.3-12.3); Neutrophils % 58.2 % (41.7-73.7); Nucleated Red Blood Cells % 0.2 % (0-0); Platelets 28 thou/uL (152-406); RBC Red Blood Cell Count 3.29 M/uL (4.33-5.43); Red Cell Distribution Width 14.3 % (12.1-15.2)
[2024-10-30 16:43] LABS: Albumin 2.4 g/dL (3.4-5.0); Albumin/Globulin Ratio 0.6 (1.1-1.8); Anion Gap 10.9 mEq/L (5.0-15.0); Bilirubin Direct 0.6 mg/dL (0-0.2); Bilirubin Indirect, Calculated 1.3 mg/dL (0.2-0.8); Bilirubin Total 1.9 mg/dL (0.2-1.0); Globulin 3.8 g/dL (2.3-3.5); Potassium 2.9 mEq/L (3.5-5.1); Protein, Total 6.2 g/dL (6.4-8.2); Troponin High Sensitivity 27.1 pg/mL (<58.9)
--- NOTE | 2024-10-30 17:15 | ER ---
Nurse's Notes [facility] Name: Papito Christy Age: 69 yrs Sex: Male : 1955 Arrival Date: 10/30/2024 Time: 14:11 Bed 6 Private MD: Diagnosis: New onset CHF;Syncope;Hypokalemia Presentation: 10/30 14:19 Chief complaint: Patient states: he fell 2 days ago after standing up, and hit his head ap3 and left shoulder. patient states he has been having an increase in shortness of breath since his last visit a couple of weeks ago. patient also reports that his pediatric clinical nurse specialist called and reports "my cardiac enzymes are all out of whack". Coronavirus screen: At this time, the client does not indicate any symptoms associated with coronavirus-19. Ebola Screen: No symptoms or risks identified at this time. Initial Sepsis Screen: Does the patient meet any 2 criteria? RR > 20 per min. HR > 90 bpm. Does the patient have a suspected source of infection? No. Patient's initial sepsis screen is negative. Risk Assessment: Do you want to hurt yourself or someone else? Patient reports no desire to harm self or others. Onset of symptoms is unknown. 14:19 Method Of Arrival: Wheelchair ap3 14:19 Acuity: EUNICE 2 ap3 Triage Assessment: 14:21 General: Appears in no apparent distress. Behavior is calm, cooperative, appropriate ap3 for age. Pain: Complains of pain in left shoulder. Neuro: Level of Consciousness is awake, alert, obeys commands, Oriented to person, place, time, situation. Cardiovascular: Patient's skin is warm and dry. Respiratory: Reports shortness of breath on exertion Airway is patent Onset: The symptoms/episode began/occurred gradually. Historical: - Allergies: 14:21 PENICILLINS; ap3 - Home Meds: 18:09 zolpidem 10 mg Oral tablet every day at bedtime for sleep-onset insomnia [Active]; aa5 cyclobenzaprine 10 mg Oral tablet every 8 hours for muscle spasm [Active]; prednisone 5 mg Oral tablet daily [Active]; abiraterone 250 mg oral tablet 4 tabs daily [Active]; folic acid 1 mg Oral tablet daily [Active]; metoprolol tartrate 25 mg Oral tablet daily [Active]; levothyroxine 150 mcg oral tablet daily [Active]; - PMHx: 14:21 Hormone Replacement; low platelets; Prostate Cancer; ap3 18:09 Chronic back pain; thyroid problem; aa5 - PSHx: 14:21 Valve replacement; ap3 - Immunization history:: Client reports receiving the 2nd dose of the Covid vaccine. - Infectious Disease History:: Denies. - Social history:: Smoking status: Patient reports the use of cigarette tobacco products. - Family history:: not pertinent. Screenin:22 Abuse screen: Denies threats or abuse. Nutritional screening: No deficits noted. ap3 Tuberculosis screening: No symptoms or risk factors identified. 15:00 [facility] ED Fall Risk Assessment (Adult) History of falling in the last 3 months, aa5 including since admission Yes- single mechanical fall (1 pt) Confusion or Disorientation No (0 pts) Intoxicated or Sedated No (0 pts) Impaired Gait No (0 pts) Mobility Assist Device Used No (0 pt) Altered Elimination No (0 pt) Score/Fall Risk Level 0 - 2 = Low Risk Oriented to surroundings, Maintained a safe environment, Educated pt \\T\\ family on fall prevention, incl call for assistance when getting out of bed, Assessed \\T\\ reinforced patient's understanding of fall precautions. Assessment: 15:00 General: Appears comfortable, Behavior is calm, cooperative. Pain: Complains of pain in aa5 left shoulder. Neuro: Level of Consciousness is awake, alert, obeys commands, Oriented to person, place, time, situation. Cardiovascular: Heart tones S1 S2 present Rhythm is sinus tachycardia. Respiratory: Reports shortness of breath Airway is patent Respiratory effort is even, unlabored, Respiratory pattern is regular, symmetrical, Breath sounds are clear bilaterally. GI: Abdomen is round non-distended, Bowel sounds present X 4 quads. Abd is soft and non tender X 4 quads. Reports nausea. : No signs and/or symptoms were reported regarding the genitourinary system. EENT: No signs and/or symptoms were reported regarding the EENT system. Derm: Skin is pink, warm \\T\\ dry. Bruising that is dark purple, on yanet upper eyelids and left sabianism. Musculoskeletal: Reports pain in left shoulder. 15:55 Reassessment: Pt in CT scan. aa5 16:14 Reassessment: Patient is alert, oriented x 3, equal unlabored respirations, skin aa5 warm/dry/pink. 18:35 Reassessment: Pt attempting to use urinal at sitting at the side of the bed, HR noted aa5 to be up to 145bpm, O2 sat 90% RA, pt was placed back in bed. was notified. . 18:35 Reassessment: Patient is alert, oriented x 3, equal unlabored respirations, skin aa5 warm/dry/pink. 18:45 Reassessment: Pt sitting up in bed. Purewick placed to suction for elimination needs. . aa5 18:45 Reassessment: Patient is alert, oriented x 3, equal unlabored respirations, skin aa5 warm/dry/pink. 18:45 Respiratory: Denies increased SOB. aa5 Vital Signs: 14:19 BP 118 / 70; Pulse 132; Resp 21; Temp 98.1; Pulse Ox 94% on R/A; Weight 99.79 kg; ap3 Height 6 ft. 2 in. ; Pain 0/10; 15:00 BP 136 / 82; Pulse 100; Resp 16 S; Pulse Ox 96% on R/A; aa5 15:30 BP 153 / 76; Pulse 99; Resp 18 S; Pulse Ox 95% on R/A; aa5 16:00 BP 145 / 82; Pulse 100; Resp 18 S; Pulse Ox 97% on R/A; aa5 16:44 BP 127 / 71; Pulse 105; Resp 16 S; Pulse Ox 100% on 2 lpm NC; aa5 17:48 BP 122 / 66; Pulse 115; Resp 15; Pulse Ox 96% ; bp 18:50 BP 109 / 72; Pulse 108; Resp 18 S; Pulse Ox 98% on 2 lpm NC; aa5 14:19 Body Mass Index 28.25 (99.79 kg, 187.96 cm) ap3 14:19 Pain Scale: Adult ap3 ED Course: 14:19 Patient arrived in ED. ap3 14:21 Triage completed. ap3 14:22 Arm band placed on right wrist. ap3 14:24 Sherwin Pierce MD is Attending Physician. rt 14:36 Patient has correct armband on for positive identification. Placed in gown. Bed in low ap3 position. Call light in reach. Side rails up X 1. Client placed on continuous cardiac and pulse oximetry monitoring. NIBP monitoring applied. gold buyer on. Pulse ox on. NIBP on. 14:36 EKG done, by ED staff, reviewed by Sherwin Pierce MD. ap3 14:39 Ivania Grady, RN is Primary Nurse. aa5 14:44 Radiology exam delayed due to lab results not completed at this time. IV insertion jc4 attempt and/or patient not having appropriate IV at this time. 15:00 No provider procedures requiring assistance completed. aa5 15:12 Initial lab(s) drawn, by me, sent to lab. Inserted saline lock: 20 gauge in right bp forearm, using aseptic technique. Blood collected. Flushed with 10 mL NS. 15:23 Shoulder Left (2 View) XRAY In Process Unspecified. EDMS 15:57 CT Head C Spine In Process Unspecified. EDMS 15:57 CT Chest For PE Angio In Process Unspecified. EDMS 17:13 Per Ho MD is Hospitalizing Provider. rt 17:48 Sling applied to left arm. bp 22:10 Provided Education on: need for admission. al5 22:10 Patient admitted, IV remains in place. al5 Administered Medications: 16:14 Drug: morphine IVP or IV 4 mg IVP once over 4 mins Route: IVP; Infused Over: 4 mins; aa5 Site: right forearm; 16:20 Follow up: Response: No adverse reaction aa5 16:14 Drug: Ondansetron IVP 4 mg IVP once; over 2 minutes Route: IVP; Site: right forearm; aa5 16:20 Follow up: Response: No adverse reaction aa5 17:30 Drug: Furosemide IVP 40 mg IVP once; give over 2 minutes Route: IVP; Site: right wrist; bp 17:47 Follow up: Response: No adverse reaction bp 17:30 Drug: Potassium PO Effervescent Tablet 50 mEq PO once; dissolve in 4 ounces of water or bp juice Route: PO; 17:47 Follow up: Response: No adverse reaction bp Medication: 16:01 VIS not applicable for this client. aa5 Outcome: 17:14 Decision to Hospitalize by Provider. rt 23:47 Admitted to Med/surg accompanied by tech, via stretcher, room 2033, with oxygen, with ap3 chart, 23:47 Condition: stable 23:47 Instructed on the need for admit, 23:47 Patient left the ED. ap3 Signatures: Dispatcher [employer] EDMS Ivania Grady RN RN aa5 Kwabena Zapata RN RN bp Estrellita Espinoza RN RN ap3 Sherwin Pierce MD MD rt Estrellita Cagle RN RN al5 Cruzito Walls [email or web address] Corrections: (The following items were deleted from the chart) 14:23 14:21 Allergies: z-pack; ap3 ap3 15:52 15:45 BP 165 / 90; Pulse 74bpm; Resp 18bpm; Spontaneous; Pulse Ox 99% RA; aa5 aa5 :53 14:25 General: Appears comfortable, Behavior is calm, cooperative, drowsy, aa5 aa5 16:53 14:25 Pain: Denies pain. aa5 aa5 53 14:25 Neuro: Level of Consciousness is alert, obeys commands, drowsy/sedated, easy to aa5 awaken to verbal/tactile stimuli. . Oriented to person, place, time, situation, Appropriate for age aa5 : 14:25 Cardiovascular: Denies chest pain, nausea, shortness of breath, Heart tones S1 S2 aa5 present Rhythm is Idioventricular aa5 14:25 Respiratory: Airway is patent Respiratory effort is even, unlabored, relaxed, aa5 Respiratory pattern is regular, symmetrical, Breath sounds are clear bilaterally. aa5 : 14:25 GI: Abdomen is obese, Bowel sounds present X 4 quads. Abd is soft and non tender aa5 X 4 quads. Patient currently denies nausea, aa5 14:25 : No signs and/or symptoms were reported regarding the genitourinary system. aa5aa5 :53 14:25 EENT: No signs and/or symptoms were reported regarding the EENT system. aa5 aa5 14:25 Derm: Skin is pink, warm \\T\\ dry. aa5 aa5 :53 14:25 Musculoskeletal: Range of motion: intact in all extremities, aa5 aa5 18:58 18:50 BP 109 / 72; Pulse 108bpm; Resp 18bpm; Spontaneous; Pulse Ox 98% RA; aa5 aa5
--- NOTE | 2024-10-30 17:15 | EDPHYS ---
Physician Documentation [facility] Name: Papito Christy Age: 69 yrs Sex: Male : 1955 Arrival Date: 10/30/2024 Time: 14:11 Bed 6 Private MD: ED Physician Sherwin Pierce HPI: 10/30 15:56 This 69 yrs old Male presents to ER via Wheelchair with complaints of Shortness Of rt Breath. 15:56 Patient with history of prostate cancer presents to the ED with progressively worsening rt shortness of breath for about the past 2 weeks. Outpatient labs that showed an elevated BNP to about 350. States that 3 days ago, ate a syncopal event, hitting the left side of his head as well as the left shoulder. Reports of pain to the shoulder. Denies other acute complaints at this time, symptoms are moderate in severity, no other aggravating or alleviating factors.. Historical: - Allergies: 14:21 PENICILLINS; ap3 - Home Meds: 18:09 zolpidem 10 mg Oral tablet every day at bedtime for sleep-onset insomnia [Active]; aa5 cyclobenzaprine 10 mg Oral tablet every 8 hours for muscle spasm [Active]; prednisone 5 mg Oral tablet daily [Active]; abiraterone 250 mg oral tablet 4 tabs daily [Active]; folic acid 1 mg Oral tablet daily [Active]; metoprolol tartrate 25 mg Oral tablet daily [Active]; levothyroxine 150 mcg oral tablet daily [Active]; - PMHx: 14:21 Hormone Replacement; low platelets; Prostate Cancer; ap3 18:09 Chronic back pain; thyroid problem; aa5 - PSHx: 14:21 Valve replacement; ap3 - Immunization history:: Client reports receiving the 2nd dose of the Covid vaccine. - Infectious Disease History:: Denies. - Social history:: Smoking status: Patient reports the use of cigarette tobacco products. - Family history:: not pertinent. ROS: 15:56 Constitutional: Negative for fever, chills, and weight loss, Cardiovascular: Negative rt for chest pain, palpitations, and edema, Abdomen/GI: Negative for abdominal pain, nausea, vomiting, diarrhea, and constipation, Skin: Negative for injury, rash, and discoloration, 15:56 Respiratory: Positive for cough, shortness of breath, 15:56 Neuro: Positive for syncope, Negative for altered mental status, Exam: 15:56 Constitutional: This is a well developed, well nourished patient who is awake, alert, rt and in no acute distress. Cardiovascular: Regular rate and rhythm with a normal S1 and S2. No gallops, murmurs, or rubs. Normal PMI, no JVD. No pulse deficits. Respiratory: Lungs have equal breath sounds bilaterally, clear to auscultation and percussion. No rales, rhonchi or wheezes noted. No increased work of breathing, no retractions or nasal flaring. Abdomen/GI: Soft, non-tender, with normal bowel sounds. No distension or tympany. No guarding or rebound. No evidence of tenderness throughout. Skin: Warm, dry with normal turgor. Normal color with no rashes, no lesions, and no evidence of cellulitis. MS/ Extremity: Pulses equal, no cyanosis. Neurovascular intact. Full, normal range of motion. Neuro: Awake and alert, GCS 15, oriented to person, place, time, and situation. Cranial nerves II-XII grossly intact. Motor strength 5/5 in all extremities. Sensory grossly intact. Cerebellar exam normal. Normal gait. 15:56 Head/face: Contusion to the left side of the face, small laceration noted lateral to the left eye. 15:56 Chest/axilla: Bruising, tenderness over left clavicle. 15:56 ECG was reviewed by the Attending Physician. Vital Signs: 14:19 BP 118 / 70; Pulse 132; Resp 21; Temp 98.1; Pulse Ox 94% on R/A; Weight 99.79 kg; ap3 Height 6 ft. 2 in. ; Pain 0/10; 15:00 BP 136 / 82; Pulse 100; Resp 16 S; Pulse Ox 96% on R/A; aa5 15:30 BP 153 / 76; Pulse 99; Resp 18 S; Pulse Ox 95% on R/A; aa5 16:00 BP 145 / 82; Pulse 100; Resp 18 S; Pulse Ox 97% on R/A; aa5 16:44 BP 127 / 71; Pulse 105; Resp 16 S; Pulse Ox 100% on 2 lpm NC; aa5 17:48 BP 122 / 66; Pulse 115; Resp 15; Pulse Ox 96% ; bp 18:50 BP 109 / 72; Pulse 108; Resp 18 S; Pulse Ox 98% on 2 lpm NC; aa5 14:19 Body Mass Index 28.25 (99.79 kg, 187.96 cm) ap3 14:19 Pain Scale: Adult ap3 MDM: 14:28 Medical Screening Exam initiated rt 17:26 Differential diagnosis: CHF, pneumonia, pulmonary embolus. Data reviewed: vital signs, rt nurses notes, lab test result(s), EKG, radiologic studies. Consideration of Admission/Observation Patient was admitted/placed on observation. Management of patient was discussed with the following: Hospitalist: Agrees to admit. I considered the following discharge prescriptions or medication management in the emergency department Medications were administered in the Emergency Department. See MAR. Independent interpretation of the following test(s) in the Emergency Department CT Scan: My interpretation is No infiltrate seen on interpretation of CT scan images. Test considered but Not performed: X-ray: CTA performed, x-rays redundant. Counseling: I had a detailed discussion with the patient and/or guardian regarding the historical points, exam findings, and any diagnostic results supporting the discharge/admit diagnosis, lab results, radiology results, the need for further work-up and treatment in the hospital. Response to treatment: the patient's symptoms have mildly improved after treatment. ED course: Lacerations greater than 48 hours old, will allow to heal by secondary intention. 10/30 14:41 Order name: Basic Metabolic Panel; Complete Time: 16:45 rt 10/30 14:41 Order name: CBC with Diff rt 10/30 14:41 Order name: LFT's; Complete Time: 16:45 rt 10/30 14:41 Order name: NT PRO-BNP; Complete Time: 16:45 rt 10/30 14:41 Order name: Troponin HS; Complete Time: 16:45 rt 10/30 18:09 Order name: CBC with Automated Diff EDMS 10/30 18:09 Order name: CBC with Automated Diff EDMS 10/30 18:09 Order name: Comprehensive Metabolic Panel EDMS 10/30 18:09 Order name: Comprehensive Metabolic Panel EDMS 10/30 18:09 Order name: Magnesium EDMS 10/30 18:09 Order name: Magnesium EDMS 10/30 18:09 Order name: NT PRO-BNP EDMS 10/30 18:09 Order name: NT PRO-BNP EDMS 10/30 18:09 Order name: T4 Free [facility] 10/30 18:09 Order name: T4 Free [facility] 10/30 18:09 Order name: Thyroid Stimulating Hormone [facility] 10/30 18:09 Order name: Thyroid Stimulating Hormone [facility] 10/30 19:41 Order name: CBC Smear Scan [facility] 10/30 14:41 Order name: CT Head C Spine; Complete Time: 16:04 rt 10/30 14:41 Order name: CT Chest For PE Angio; Complete Time: 16:08 rt 10/30 14:41 Order name: Shoulder Left (2 View) XRAY; Complete Time: 15:37 rt 10/30 18:10 Order name: Echo with Doppler [facility] 10/30 18:09 Order name: Physical Therapy Consult [facility] 10/30 14:41 Order name: Cardiac monitoring; Complete Time: 15:01 rt 10/30 14:41 Order name: EKG - Nurse/Tech; Complete Time: 15:00 rt 10/30 14:41 Order name: IV Saline Lock; Complete Time: 15:12 rt 10/30 14:41 Order name: Labs collected and sent; Complete Time: 15:12 rt 10/30 14:41 Order name: O2 Per Protocol; Complete Time: 15:00 rt 10/30 14:41 Order name: O2 Sat Monitoring; Complete Time: 15:00 rt 10/30 17:29 Order name: Sling; Complete Time: 17:47 rt EC:56 Rate is 103 beats/min. Rhythm is regular, Sinus tachycardia with No ectopy. QRS [place] is rt Normal. ME interval is prolonged at 212 msec. QRS interval is normal. QT interval is normal. No Q waves. No ST changes noted. Interpreted by me. Administered Medications: 16:14 Drug: morphine IVP or IV 4 mg IVP once over 4 mins Route: IVP; Infused Over: 4 mins; aa5 Site: right forearm; 16:20 Follow up: Response: No adverse reaction aa5 16:14 Drug: Ondansetron IVP 4 mg IVP once; over 2 minutes Route: IVP; Site: right forearm; aa5 16:20 Follow up: Response: No adverse reaction aa5 17:30 Drug: Furosemide IVP 40 mg IVP once; give over 2 minutes Route: IVP; Site: right wrist; bp 17:47 Follow up: Response: No adverse reaction bp 17:30 Drug: Potassium PO Effervescent Tablet 50 mEq PO once; dissolve in 4 ounces of water or bp juice Route: PO; 17:47 Follow up: Response: No adverse reaction bp Disposition Summary: 10/30/24 17:14 Hospitalization Ordered Notes: Hospitalization Status: Observation rt Provider: Per Ho rt Location: Telemetry/MedSurg (observation) rt Condition: Stable rt Problem: new rt Symptoms: have improved rt Bed/Room Type: Standard rt Room Assignment: 203(10/30/24 21:34) cg Diagnosis - New onset CHF rt - Syncope rt - Hypokalemia rt Forms: - Medication Reconciliation Form rt - SBAR form rt - Leadership Thank You Letter rt Signatures: Dispatcher [employer] EDIvania Wilson, RN RN aa5 Doreen Chase RN RN cg Kwabena Zapata RN RN Estrellita Perez RN RN ap3 Sherwin Pierce MD MD rt Corrections: (The following items were deleted from the chart) 14:23 14:21 Allergies: z-pack; ap3 ap3 14:42 14:42 Head C Spine MPR Wo Con+CT.RAD.BRZ ordered. EDMS EDMS 14:42 14:42 Chest For PE Angio+CT.RAD.BRZ ordered. EDMS EDMS 14:42 14:42 Shoulder Left 2 View+RAD.RAD.BRZ ordered. EDMS EDMS 21:34 17:14 rt cg
[2024-10-30] MEDS ORDERED: POTASSIUM 25 MEQ EFFERV TAB ONE (17:40)
[2024-10-30] MEDS ORDERED: FUROSEMIDE 40 MG/4 ML VIAL ONE (17:40)
--- NOTE | 2024-10-30 18:04 | P.HP ---
Certification for Inpatient Patient admitted to: Inpatient With expected LOS: >2 Midnights Practitioner: I am a practitioner with admitting privileges, knowledge of patient current condition, hospital course, and medical plan of care. Services: Services provided to patient in accordance with Admission requirements found in Title 42 Section 412.3 of the Code of Federal Regulations Patient History Date of Service: 10/30/24 Reason for admission: CHF, syncope, clavicle fracture History of Present Illness: 69yo M, PMH: prostate cancer s/p radiation, aortic stenosis now s/p TAVR (11/2023), hypothyroidism, thrombocytopenia. Presents to ED with ~1 week of orthostasis, progressive shortness of breath / dyspnea on exertion, swelling in lower extremities, and generalized weakness. He reports a syncopal event ~2 nights ago - he got up to go to the bathroom and passed out on the floor injuring his left shoulder. Imaging in ED today notes a distal clavicle fracture. He denies any history of similar symptoms, and denies history of CHF. He reports symptoms prior to TAVR were chest tightness after walking certain distances, which resolved after TAVR last near and have not recurred. He denies any recent changes in medications. His most recent change was in July when Dr. Tong started him on metoprolol for a fast heart rate. He denies afib/flutter history. He saw his PCP ~1 week ago, who noted some lower extremity edema, and prescribed 3 doses of a "water pill", which patient took daily without any notable improvement. He also reports recently in the last day or so being told by PCP that his BNP was elevated on recent bloodwork done a few days ago. Patient also reports dealing with back pain sicne end of September when he injured his back trying to carry a recliner up the stairs. He feels like everything has worsened/progressed since that injury. Allergies Penicillins Allergy (Verified 06/09/24 15:21) Anaphylaxis Home Medications: Zolpidem Tartrate 10 mg PO 30 MIN BEFORE HS 11/27/22 Abiraterone Acetate [Zytiga] 1,000 mg PO DAILY 04/23/24 Folic Acid 1 mg PO DAILY 04/23/24 Levothyroxine Sodium [Synthroid] 100 mcg PO DAILY 04/23/24 predniSONE [Prednisone*] 5 mg PO DAILY 08/14/24 - Past Medical/Surgical History Diabetic: No -: prostate cancer s/p radiation -: aortic stenosis now s/p TAVR (11/2023) -: Thrombocytopenia -: Hypothyroidism -: Back pain -: TAVR - Family History Family History: Reviewed- Non-Contributory - Social History Smoking Status: Unknown if ever smoked Alcohol use: No CD- Drugs: No Caffeine use: Yes Place of Residence: Home Review of Systems 10-point ROS is otherwise unremarkable Physical Examination - Physical Exam General: Alert, In no apparent distress, Oriented x3 HEENT: EOMI, Sclerae nonicteric Neck: Supple, No LAD Respiratory: Diminished, Crackles/rales (L>R) Cardiovascular: Regular rate/rhythm, Edema (1+), Systolic murmur Gastrointestinal: Soft and benign, Non-distended, No tenderness Musculoskeletal: No contractures, No erythema Integumentary: No rashes, No significant lesion Neurological: Normal speech, Normal affect - Studies Laboratory Data (last 24 hrs) 10/30/24 10/30/24 15:12 15:12 WBC 4.10 L Hgb 12.4 L Hct 36.9 L Plt Count 28 L Sodium 139 Potassium 2.9 L BUN 14 Creatinine 1.11 Glucose 101 Total Bilirubin 1.9 H AST 42 H ALT 23 Alkaline Phosphatase 82 Assessment and Plan - Advance Directives Does patient have a Living Will: No Does patient have a Durable POA for Healthcare: No Physician Review Additional Text: Problem list Fluid retention, CHF Syncope Left distal clavicle fracture History of aortic stenosis, now s/p TAVR (11/2023) Tachyarrhythmia Hypothyroidism History of prostate cancer s/p radiation Back pain CTA notes bilateral pleural effusions, worse on the left side Mild to moderate ascites noted as well With 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 the lung sparks Possibly due to congestive heart failure, arrhythmia, issues with his valve although it is less than 1-year-old Monitor on telemetry, EKG gave a dose of Lasix, will continue at a daily interval for now and reassess in the morning Echocardiogram ordered to evaluate heart function and aortic valve Cardiology consulted Fibroemphysematous changes may be secondary to radiation, patient states he is multiple radiation treatments of prostate, as well as his left shoulder -stated there is concern prostate cancer spread to an area in his left shoulder Will monitor, may benefit from inhaler/nebs No evidence of infection/sepsis at this time Back pain has been ongoing since he hurt it lifting a recliner 3 weeks ago Physical therapy ordered Code: Full Dispo: Home, possibly with home health/PT, in ~ 2-3 days Time Spent Managing Pts Care (In Minutes): 75
[2024-10-30] MEDS ORDERED: ONDANSETRON 4 MG/2 ML VIAL IV PRN (18:06)
[2024-10-30] MEDS ORDERED: ACETAMINOPHEN 500 MG TAB PO PRN (18:06)
[2024-10-30 19:41] LABS: Anisocytosis 1+; Blood Morphology Comment NOTED (NOT SEEN); Poikilocytosis 1+; White Blood Cell Scan OK (OK)
[2024-10-30 19:43] LABS: Platelet Estimate DECR
[2024-10-30 22:34] VITALS: BMI 28.0
[2024-10-31 05:19] LABS: Absolute Eosinophils 0.9 K/uL (0-0.5); Absolute Lymphocytes (CBC) 0.5 K/uL (0.7-4.9); Absolute Monocytes 0.6 K/uL (0.1-1.3); Absolute Neutrophil 2.2 K/uL (1.8-8.0); Eosinophils % 21.8 % (0-4.4); Hematocrit 30.8 % (39.6-49.0); Hemoglobin 10.7 g/dL (13.6-17.9); Lymphocytes % 10.9 % (15.3-44.8); MCH 38.8 pg (27.0-35.0); MCHC 34.8 g/dL (32.0-36.0); MCV 111.3 fL (80-100); MPV 7.4 fL (7.6-11.3); Monocytes % 13.6 % (3.3-12.3); Neutrophils % 52.7 % (41.7-73.7); Platelets 24 thou/uL (152-406); RBC Red Blood Cell Count 2.77 M/uL (4.33-5.43); Red Cell Distribution Width 14.1 % (12.1-15.2)
[2024-10-31 05:41] LABS: Albumin/Globulin Ratio 0.6 (1.1-1.8); Anion Gap 6.8 mEq/L (5.0-15.0); Bilirubin Total 1.5 mg/dL (0.2-1.0); Globulin 3.3 g/dL (2.3-3.5); Magnesium 1.9 mg/dL (1.6-2.4); Potassium 3.8 mEq/L (3.5-5.1); Protein, Total 5.3 g/dL (6.4-8.2)
[2024-10-31 05:48] LABS: Thyroid Stimulating Hormone 12.4 uIU/mL (0.358-3.740)
[2024-10-31] MEDS: METHYLPREDNISOLONE 125 MG INJ IV ONE (09:21)
[2024-10-31] MEDS: METOPROLOL TARTRATE 5 MG/5 ML INJ IV STA (09:22)
[2024-10-31] MEDS: FUROSEMIDE 40 MG/4 ML VIAL IV SCH (10:13)
[2024-10-31] MEDS: NA CHLORIDE 0.9% 1,000 ML IV SCH (10:14)
--- NOTE | 2024-10-31 13:38 | ECHO ---
HEIGHT: 6 ft 2 in WEIGHT: 219 lb 0 oz DATE OF STUDY: 10/31/[address]: Per Ho MD 2-DIMENSIONAL: YES M.MODE: YES DOPPLER: YES COLOR FLOW: YES TDS: YES PORTABLE: DEFINITY: BUBBLE STUDY: DIAGNOSIS: EVALUATE FUNCTION/ TAVR CARDIAC HISTORY: CATHERIZATION: YES SURGERY: TAVR PROSTHETIC VALVE: PACEMAKER: MEASUREMENTS (cm) DIASTOLIC (NORMALS) SYSTOLIC (NORMALS) IVSd 1.1 (0.6-1.2) LA Diam (1.9-4.0) LVEF 60-65% LVIDd 3.5 (3.5-5.7) LVIDs 2.4 (2.0-3.5) %FS 32% LVPWd 1.1 (0.6-1.2) Ao Diam 3.0 (2.0-3.7) 2 DIMENSIONAL ASSESSMENT: RIGHT ATRIUM: NORMAL LEFT ATRIUM: NORMAL RIGHT VENTRICLE: NORMAL LEFT VENTRICLE: NORMAL TRICUSPID VALVE: TRACE TRICUSPID REGURGITATION MITRAL VALVE: MILD MITRAL ANNULAR CALCIFICATION PULMONIC VALVE: NORMAL AORTIC VALVE: NORMAL PERICARDIAL EFFUSION: NONE AORTIC ROOT: NORMAL LEFT VENTRICULAR WALL MOTION: NORMAL DOPPLER/COLOR FLOW: SEE BELOW COMMENTS: 1. NORMAL LEFT VENTRICULAR EJECTION FRACTION 60-65% 2. NORMAL WALL MOTION 3. MILD MITRAL ANNULAR CALCIFICATION 4. TRACE TRICUSPID REGURGITATION TECHNOLOGIST: ALEX DAVILA
--- NOTE | 2024-10-31 18:52 | CON ---
Date of Consultation: 10/31/2024 Reason For Consultation: Syncope. History Of Present Illness: This is a 69-year-old male with history of prostate cancer, who presente d to the emergency room after he had a syncopal episode and presented also with some shortness of madi ath. Apparently, he woke up to urinate and felt dizzy and lightheaded. He was trying to reach out t o the light and collapsed on the floor, hit his head, presented to the emergency room, and he has bee n having also shortness of breath on exertion. Denies having any chest pain. No nausea or vomiting. No palpitations. He did not check his blood pressure at that time, and he claims that he has not t aken any blood pressure medications. Past Medical History: Prostate cancer. Medications: Refer reconciliation sheet for detailed list. Allergies: PENICILLIN. Family History: No premature coronary artery disease or cancer. Social History: Does not smoke or drink. Does not use any drugs. Review of Systems: All systems reviewed and they are negative except as mentioned in the HPI. Physical Examination: Vital Signs: Reviewed. Head and Neck: Pupils are equal, reactive to light. Intact eye movements. No JVD. No cervical lym phadenopathy. Neck is supple. Thyroid is not enlarged. Lungs: Clear to auscultation bilaterally. No rhonchi, wheezing, or crackles. No accessory muscle u se. Heart: Regular rate and rhythm. No extra sounds. Abdomen: Soft, nontender. Bowel sounds positive. No organomegaly. No masses or hernia. No rigidi ty or rebound. Extremities: No edema, clubbing, or cyanosis. Neurologic: Alert, awake, oriented x3. No acute focal deficits appreciated. Investigations: BUN 12, creatinine 1.02, potassium was 2.9 on admission. NT-proBNP was 677. TSH is 12.4 and hemoglobin is 10.7. Assessment And Recommendations: 1. Syncope. Heart rate is 113 on admission. Blood pressure is 110. This could be an orthostatic hy potension. CTA of the chest showed no pulmonary embolism. I recommend to trend the troponin, do 2 m ore sets, and please keep the patient on equipment monitor phototypesetting to monitor for any arrhythmia and agree wi th gentle hydration. An echo did not show any significant abnormalities. 2. Dehydration. His blood work results suggested some mild dehydration. He was hydrated and at this moment, he is asymptomatic. BUN and creatinine are normal. 3. Hypokalemia. This was replaced. SR/MODL Voice ID: [id number] Report ID: [id number]
[2024-10-31] MEDS: ZOLPIDEM TARTRATE 10 MG TABLET PO SCH (22:12)
[2024-10-31] MEDS: METOPROLOL TAR 25 MG TAB PO SCH (22:13)
[2024-11-01 06:21] LABS: Absolute Lymphocytes (CBC) 0.4 K/uL (0.7-4.9); Absolute Monocytes 0.3 K/uL (0.1-1.3); Absolute Neutrophil 5.6 K/uL (1.8-8.0); Basophils % 0.4 % (0-1.3); Eosinophils % 0.1 % (0-4.4); Hematocrit 29.6 % (39.6-49.0); Hemoglobin 10.2 g/dL (13.6-17.9); Lymphocytes % 6.4 % (15.3-44.8); MCH 38.4 pg (27.0-35.0); MCHC 34.5 g/dL (32.0-36.0); MCV 111.2 fL (80-100); MPV 8.2 fL (7.6-11.3); Monocytes % 4.6 % (3.3-12.3); Neutrophils % 88.5 % (41.7-73.7); Percent Reticulocyte Count 1.55 % (0.4-2.05); Platelets 23 thou/uL (152-406); RBC Red Blood Cell Count 2.66 M/uL (4.33-5.43); Red Cell Distribution Width 13.8 % (12.1-15.2)
[2024-11-01] MEDS: LEVOTHYROXINE SOD 0.075 MG TAB PO SCH (06:41)
[2024-11-01 06:52] LABS: Albumin 2.2 g/dL (3.4-5.0); Albumin/Globulin Ratio 0.7 (1.1-1.8); Anion Gap 9.9 mEq/L (5.0-15.0); Bilirubin Total 1.1 mg/dL (0.2-1.0); C-Reactive Protein 50.8 mg/L (<3.00); Globulin 3.2 g/dL (2.3-3.5); Magnesium 1.8 mg/dL (1.6-2.4); Potassium 3.9 mEq/L (3.5-5.1); Protein, Total 5.4 g/dL (6.4-8.2); Troponin High Sensitivity 12.8 pg/mL (<58.9)
[2024-11-01] MEDS: METHYLPREDNISOLONE 40 MG INJ IV SCH (07:58)
[2024-11-01] MEDS: MAGNESIUM SULFATE 1 gm IVPB 1 GM/100 ML BAG IV ONE (07:58)
[2024-11-01 08:52] VITALS: BP 107/58; TEMP 97.9
[2024-11-01] MEDS ORDERED: LEVOTHYROXINE SOD 0.075 MG TAB PO SCH (09:00)
[2024-11-01] MEDS: ABIRATERONE ACETATE 500 MG PO SCH (09:00)
[2024-11-01] MEDS ORDERED: METOPROLOL TAR 25 MG TAB PO SCH (09:00)
[2024-11-01 09:13] LABS: Platelet Estimate DECR; White Blood Cell Scan OK (OK)
[2024-11-01 09:14] LABS: Anisocytosis SLIGHT; Blood Morphology Comment NOTED (NOT SEEN); Macrocytosis 2+
[2024-11-01] MEDS: FOLIC ACID 1 MG TABLET PO SCH (09:15)
[2024-11-01] MEDS: predniSONE 5 MG TAB PO SCH (09:15)
[2024-11-01] MEDS: POTASSIUM CL SA 10 MEQ TAB PO ONE (09:15)
[2024-11-01 11:50] VITALS: O2SAT 93
--- NOTE | 2024-11-03 12:16 | EKG ---
Test Date: 2024-10-30 Test Time: 14:33:25 Ventilation Worker: ALP MEASUREMENT RESULTS: Intervals: Rate: 103 FL: 212 QRSD: 102 QT: 356 QTc: 466 [place]: P: 53 FL: 212 QRS: -10 T: 67 INTERPRETIVE STATEMENTS: Sinus tachycardia with 1st degree AV block Possible Anterior infarct, age undetermined Abnormal ECG Compared to ECG 10/09/2024 10:22:24 Sinus rhythm no longer present Ventricular premature complex(es) no longer present Myocardial infarct finding still present Electronically Signed On 11-03-24 12:12:03 JOB PRINTER by Yohannes Choi
== END 2024-11-01 12:35 | disposition home or self-care (01) | DRG 312 ==
LOC: ER 14:11 → ERHOLD 18:04 → 2ND 22:59
PROVIDERS: ADMIT Hospitalist; ATTEND Hospitalist
DX: I95.1 Orthostatic hypotension (principal); S42.92XA Fracture of left shoulder girdle, part unspecified, initial encounter for closed fracture; S05.32XA Ocular laceration without prolapse or loss of intraocular tissue, left eye, initial encounter; I50.9 Heart failure, unspecified; E86.0 Dehydration; E87.6 Hypokalemia; E03.9 Hypothyroidism, unspecified; G89.29 Other chronic pain; F17.210 Nicotine dependence, cigarettes, uncomplicated; Z88.0 Allergy status to penicillin; Z95.2 Presence of prosthetic heart valve; Z79.52 Long term (current) use of systemic steroids; Z85.46 Personal history of malignant neoplasm of prostate; Z79.890 Hormone replacement therapy; Z79.899 Other long term (current) drug therapy; W18.30XA Fall on same level, unspecified, initial encounter; Y93.89 Activity, other specified; Y92.012 Bathroom of single-family (private) house as the place of occurrence of the external cause; Y99.9 Unspecified external cause status
CPT/HCPCS: 36415; 70450; 71275; 72125; 80048; 80053; 80061; 80076; 82607; 83540; 83605; 83615; 83735; 83880; 84439; 84443; 84484; 85025; 85044; 86140; 93005; 93306; 94760; 97116; 97161; 99285; J1940; J2405; J2919; J3475; J7030; J7512; Q9967